=== PATIENT | female | born 1935 | race Caucasian/White ===

== ENCOUNTER 2018-10-11 16:03 | Inpatient (IN) | payer MEDICARE, BC ==
--- NOTE | 2018-10-11 16:52 | ED ---
Fall HPI - General Chief Complaint: Fall Stated Complaint: Fall Time Seen by Provider: 10/11/18 16:32 Source: patient, EMS Mode of arrival: EMS - Related Data Home Medications Medication Instructions Recorded Confirmed Escitalopram [Lexapro] 20 mg PO DAILY 09/24/15 10/11/18 Mycophenolate Mofetil [Cellcept] 500 mg PO BID 09/24/15 10/11/18 Verapamil HCl [Verapamil ER] 180 mg PO DAILY 05/28/16 10/11/18 Atorvastatin [Lipitor] 10 mg PO HS 10/11/18 10/11/18 Dorzolamide/Timolol/Pf 1 drop RIGHT EYE BID 10/11/18 10/11/18 [Dorzolamide-Timolol 2%-0.5%] Levothyroxine Sodium 100 mcg PO DAILY 10/11/18 10/11/18 Losartan [Cozaar] 25 mg PO DAILY 10/11/18 10/11/18 Simvastatin [Zocor] 40 mg PO HS 10/11/18 10/11/18 Allergies Allergy/AdvReac Type Severity Reaction Status Date / Time No Known Allergies Allergy Verified 10/11/18 16:32 Review of Systems ROS Statement: Those systems with pertinent positive or pertinent negative responses have been documented in the HPI. ROS Other: All systems not noted in ROS Statement are negative. 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 History of Any Multi-Drug Resistant Organisms: None Reported Past Surgical History: Hysterectomy, Orthopedic Surgery Additional Past Surgical History / Comment(s): left ankle, left hip surgery x 2017 Past Psychological History: No Psychological Hx Reported Smoking Status: Former smoker Past Alcohol Use History: Occasional, Rare Past Drug Use History: None Reported - Past Family History Mother Family Medical History: Myocardial Infarction ([place]) Additional Family Medical History / Comment(s): mother passed 5 at 52 from a [place] Father Family Medical History: CVA/TIA Additional Family Medical History / Comment(s): father from stroke General Exam Limitations: no limitations Course Vital Signs 10/11/18 10/11/18 16:11 17:04 Temperature 97.4 F L Pulse Rate 85 73 Respiratory 18 16 Rate Blood Pressure 174/85 174/82 O2 Sat by Pulse 96 96 Oximetry Medical Decision Making - Medical Decision Making 83 female the ER with fall. Does have hemogram is fracture, will admit for pain control and orthopedic evaluation - Radiology Data Radiology results: report reviewed (X-rays negative x-ray pelvis is positive for pubic ramus fracture), image reviewed Disposition Clinical Impression: Fall, Pelvic fracture, Pubic ramus fracture Disposition: ADMITTED IP TO THIS [facility] Condition: Fair Is patient prescribed a controlled substance at d/c from ED?: No Referrals: Aryan Tsang III, MD [Primary Care Provider] - 1-2 days
--- NOTE | 2018-10-11 17:31 | XR ---
EXAMINATION TYPE: XR Hip LT and AP Pelvis DATE OF EXAM: 10/11/2018 CLINICAL HISTORY: pain TECHNIQUE: AP and frogleg views of the left hip are obtained. Single view of the pelvis is also subm itted. COMPARISON: None. FINDINGS: Intramedullary jaylon and dynamic compression screw and proximal left femur. Heterotopic ossi fication. Nondisplaced fracture superior pubic ramus on the left. IMPRESSION: 1. Nondisplaced fracture superior pubic ramus on the left.
[2018-10-11] MEDS ORDERED: SODIUM CHLORIDE 0.9% 1,000 ML IV STA ×2 (18:06)
[2018-10-11] MEDS ORDERED: MORPHINE SULFATE 4 MG/ML SYRINGE IV PRN (18:06)
[2018-10-11] MEDS ORDERED: SODIUM CHLORIDE 0.9% 1,000 ML IV ONE (18:06)
[2018-10-11 18:50] LABS: Basophils % (A) 0 %; Eosinophils # (A) 0.2 k/uL (0-0.7); Eosinophils % (A) 3 %; HCT 43.3 % (34.0-46.0); HGB 13.5 gm/dL (11.4-16.0); Hypochromasia Slight; Lymphocytes # (A) 1.1 k/uL (1.0-4.8); Lymphocytes % (A) 12 %; MCH 28.3 pg (25.0-35.0); MCHC 31.1 g/dL (31.0-37.0); MCV 91.1 fL (80.0-100.0); Mean Platelet Volume 6.3; Monocytes # (A) 0.5 k/uL (0-1.0); Monocytes % (A) 6 %; Neutrophils % (A) 76 %; Platelet Count 408 k/uL (150-450); RBC 4.76 m/uL (3.80-5.40); RDW 14.6 % (11.5-15.5); WBC 9.2 k/uL (3.8-10.6)
--- NOTE | 2018-10-11 18:51 | XR ---
EXAMINATION TYPE: XR chest 1V portable DATE OF EXAM: 10/11/2018 HISTORY: Shortness of breath. COMPARISON: 06/01/16 TECHNIQUE: Single view of the chest is submitted. FINDINGS: Demonstrated are scattered senescent parenchymal change. There is no evidence for focal infiltrate. The heart is stable. Hilar and mediastinal structures are within normal limits. Degenerative changes are seen of the dorsal spine. IMPRESSION: 1. Chronic changes without evidence for acute pulmonary disease.
[2018-10-11 18:59] LABS: Albumin 4.5 g/dL (3.5-5.0); Calcium 10.1 mg/dL (8.4-10.2); Magnesium 1.7 mg/dL (1.6-2.3); Phosphorus 2.9 mg/dL (2.5-4.5); Potassium 4.5 mmol/L (3.5-5.1); Total Bilirubin 0.5 mg/dL (0.2-1.3); Total Protein 7.7 g/dL (6.3-8.2)
[2018-10-11 19:33] LABS: Partial Thromboplastin Time 23.4 sec (22.0-30.0); Prothrombin Time 10.3 sec (9.0-12.0)
[2018-10-11 20:37] LABS: Amorphous Sediment,Urine Few /hpf; Appearance,Urine Clear (Clear); Bacteria,Urine Rare /hpf; Bilirubin,Urine Negative (Negative); Blood,Urine Trace (Negative); Color,Urine Light Yellow; Glucose,Urine (UA) Negative (Negative); Ketones,Urine Negative (Negative); Leukocyte Esterase,Urine Negative (Negative); Nitrite,Urine Negative (Negative); PH, Urine 7.5 (5.0-8.0); Protein,Urine 2+ (Negative); RBC,Urine 5 /hpf (0-5); Specific Gravity,Urine 1.008 (1.001-1.035); Squamous Epithelial Cell,Urine 2 /hpf (0-4); Urobilinogen,Urine <2.0 mg/dL (<2.0); WBC,Urine 2 /hpf (0-5)
[2018-10-11] MEDS ORDERED: ALPRAZolam 0.25 MG TAB PO PRN (22:24)
[2018-10-11] MEDS: ATORVASTATIN 20 MG TAB PO SCH (22:39)
[2018-10-11] MEDS: ACETAMINOPHEN TAB 325 MG TAB PO PRN (22:39)
[2018-10-11] MEDS: LOSARTAN 25 MG TAB PO SCH (22:39)
[2018-10-12] MEDS: LEVOTHYROXINE 100 MCG TAB PO SCH (06:27)
[2018-10-12] MEDS: DORZOLAMIDE-TIMOLOL 2.23%/0.68 10ML BTL RIGHT EYE SCH ×2 (10:05→20:29)
[2018-10-12] MEDS: LOSARTAN 25 MG TAB PO SCH (10:06)
[2018-10-12] MEDS: MYCOPHENOLATE MOFETIL 250 MG CAP PO SCH ×2 (10:06→20:29)
[2018-10-12] MEDS: VERAPAMIL SR 180 MG TABLET.ER PO SCH (10:06)
[2018-10-12] MEDS: ENOXAPARIN 40 MG/0.4 ML SYRINGE SQ SCH (10:06)
--- NOTE | 2018-10-12 15:36 | P.CNOR ---
History of Present Illness - [facility] Consult date: 10/12/18 Consult reason: fracture History of present illness: Patient is an 83-year-old female who presented to [facility] yesterday afternoon after sustaining a fall in the grocery store parking lot. She states that the wind caught her door and the door knocked her over. She fell directly on the left side. There was a bystander there to help her get back up, she did have some significant pain involving the left lower extremity. EMS to bring the patient to the hospital. Upon arrival, imaging and lab tests were done. Images demonstrated a left-sided superior pubic rami fracture. Patient was admitted to internal medicine, our orthopedic team was consulted for orthopedic care. Patient was evaluated today at bedside, she is resting comfortably. She notes some deeper left groin pain when ambulating, other than that pain is well- controlled. She denies any other orthopedic complaints at this time. She denies hitting her head during the fall. Patient does have a history of a left hip fracture back in 2016, Dr. Welsh did do surgery at that time. Patient's done very well with that left lower extremity since then. Patient states that she does live at home alone. Patient still drives and ambulates with minimal difficulties. She states that she has multiple family members in the area of the check in on her. 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 History of Any Multi-Drug Resistant Organisms: None Reported Past Surgical History: Hysterectomy, Orthopedic Surgery Additional Past Surgical History / Comment(s): left ankle, left hip surgery x 2017 Past Anesthesia/Blood Transfusion Reactions: Postoperative Nausea & Vomiting (PONV) Past Psychological History: No Psychological Hx Reported Smoking Status: Former smoker Past Alcohol Use History: Occasional, Rare Past Drug Use History: None Reported - Past Family History Mother Family Medical History: Myocardial Infarction ([place]) Additional Family Medical History / Comment(s): mother passed 5 at 52 from a [place] Father Family Medical History: CVA/TIA Additional Family Medical History / Comment(s): father from stroke Medications and Allergies Home Medications Medication Instructions Recorded Confirmed Type Escitalopram [Lexapro] 20 mg PO DAILY 09/24/15 10/11/18 History Mycophenolate Mofetil [Cellcept] 500 mg PO BID 09/24/15 10/11/18 History Verapamil HCl [Verapamil ER] 180 mg PO DAILY 05/28/16 10/11/18 History Atorvastatin [Lipitor] 10 mg PO HS 10/11/18 10/11/18 History Dorzolamide/Timolol/Pf 1 drop RIGHT EYE BID 10/11/18 10/11/18 History [Dorzolamide-Timolol 2%-0.5%] Levothyroxine Sodium 100 mcg PO DAILY 10/11/18 10/11/18 History Losartan [Cozaar] 25 mg PO DAILY 10/11/18 10/11/18 History Simvastatin [Zocor] 40 mg PO HS 10/11/18 10/11/18 History Allergies Allergy/AdvReac Type Severity Reaction Status Date / Time No Known Allergies Allergy Verified 10/11/18 16:32 Physical Examination Left lower extremity: There are no obvious open lesions or sores present, no significant areas of erythema or soft tissue swelling There is about 2 cm shortening of the left leg when compared to the right, no significant external or internal rotation noted Logroll maneuver the hip reproduces slight discomfort in the groin She is able to straight leg raise, extension and flexion of the knee and intact No effusion surrounding the knee, no tenderness with palpation Calf is soft, no tenderness with palpation Plantar flexion, dorsiflexion, EHL, FHL are intact. Sensory exam to light touch throughout the extremities intact, dorsal pedis pulses 2+ Results - Labs Labs: Abnormal Lab Results - Last 24 Hours (Table) 10/11/18 10/11/18 Range/Units 18:39 20:00 BUN 18 H (7-17) mg/dL Urine Protein 2+ H (Negative) Urine Blood Trace H (Negative) Amorphous Sediment Few H (None) /hpf Urine Bacteria Rare H (None) /hpf Microbiology - Last 24 Hours (Table) 10/11/18 20:00 Urine Culture - Preliminary Urine,Clean Catch H & H 10/11/18 Range/Units 18:39 Hgb 13.5 (11.4-16.0) gm/dL Hct 43.3 (34.0-46.0) % Coagulation 10/11/18 Range/Units 18:39 INR 1.0 (<1.2) Result Diagrams: 10/11/18 18:39 10/11/18 18:39 - Diagnostic results Hip x-ray: report reviewed, image reviewed Assessment and Plan Plan: Imaging: AP pelvis along with left hip x-rays were reviewed. Images do demonstrate a nondisplaced left superior pubic rami fracture. Images also demonstrated a stable intramedullary nail involving the left femur. Assessment: 1. Nondisplaced left superior pubic rami fracture 2. History of intramedullary nail left femur fracture, stable hardware 3. Status post fall from standing Plan: I was able to discuss the case, including the physical exam findings and imaging studies with may attending Dr. Saenz. No orthopedic surgical intervention needed at this time. Recommend weight-bear as tolerated with walker PT evaluation Pain control With patient's current activity level since the fall and family help, patient should be able to be discharged home. Recommend staying in the hospital we can work with physical therapy, with hopeful plan discharge home on Sunday with home therapy Other expert medical writer and recommendations Time with Patient: Less than 30
[2018-10-12] MEDS: ACETAMINOPHEN TAB 325 MG TAB PO PRN ×2 (16:42→23:24)
[2018-10-12] MEDS: ATORVASTATIN 20 MG TAB PO SCH (20:28)
[2018-10-13] MEDS: LEVOTHYROXINE 100 MCG TAB PO SCH (06:02)
[2018-10-13] MEDS: VERAPAMIL SR 180 MG TABLET.ER PO SCH (09:26)
[2018-10-13] MEDS: ENOXAPARIN 40 MG/0.4 ML SYRINGE SQ SCH (09:26)
[2018-10-13] MEDS: MYCOPHENOLATE MOFETIL 250 MG CAP PO SCH ×2 (09:27→20:15)
[2018-10-13] MEDS: LOSARTAN 25 MG TAB PO SCH (09:27)
[2018-10-13] MEDS: DORZOLAMIDE-TIMOLOL 2.23%/0.68 10ML BTL RIGHT EYE SCH ×2 (09:27→20:14)
[2018-10-13] MEDS: ACETAMINOPHEN TAB 325 MG TAB PO PRN (09:39)
--- NOTE | 2018-10-13 11:45 | P.HPIM ---
History of Present Illness H&P Date: 10/12/18 Chief Complaint: Fall /left leg pain 83-year-old female who presented to [facility] yesterday afternoon after sustaining a fall in the grocery store parking lot. She states that the wind caught her door and the door knocked her over. She fell directly on the left side. There was a bystander there to help her get back up, she did have some significant pain involving the left lower extremity. EMS to bring the patient to the hospital. Upon arrival, imaging and lab tests were done. Images demonstrated a left-sided superior pubic rami fracture. Patient was admitted to internal medicine, our orthopedic team was consulted for orthopedic care. Patient was evaluated today at bedside, she is resting comfortably. She notes some deeper left groin pain when ambulating, other than that pain is well- controlled. She denies any other orthopedic complaints at this time. She denies hitting her head during the fall. Patient does have a history of a left hip fracture back in 2016, Dr. Welsh did do surgery at that time. Patient's done very well with that left lower extremity since then. Patient states that she does live at home alone. Patient still drives and ambulates with minimal difficulties. She states that she has multiple family members in the area of the check in on her. Review of Systems Constitutional: Denies chills, Denies fever Eyes: denies blurred vision, denies loss of vision Cardiovascular: Denies dyspnea on exertion, Denies syncope Respiratory: Denies cough with sputum Gastrointestinal: Denies abdominal pain, Denies nausea, Denies vomiting Genitourinary: Denies dysuria, Denies hematuria Musculoskeletal: Reports fractures, Reports frequent falls, Reports gait dysfunction Neurological: Denies confusion, Denies paresthesias, Denies visual changes Endocrine: Denies cold intolerance, Denies heat intolerance Past Medical History Past Medical History: GERD/Reflux, Hyperlipidemia, Hypertension, Renal Disease Additional Past Medical History / Comment(s): VASCULITIS, shingles 2014, 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 History of Any Multi-Drug Resistant Organisms: None Reported Past Surgical History: Hysterectomy, Orthopedic Surgery Additional Past Surgical History / Comment(s): left ankle, left hip surgery x 2017 Past Anesthesia/Blood Transfusion Reactions: Postoperative Nausea & Vomiting (PONV) Past Psychological History: No Psychological Hx Reported Smoking Status: Former smoker Past Alcohol Use History: Occasional, Rare Past Drug Use History: None Reported - Past Family History Mother Family Medical History: Myocardial Infarction ([place]) Additional Family Medical History / Comment(s): mother passed 5 at 52 from a [place] Father Family Medical History: CVA/TIA Additional Family Medical History / Comment(s): father from stroke Medications and Allergies Home Medications Medication Instructions Recorded Confirmed Type Escitalopram [Lexapro] 20 mg PO DAILY 09/24/15 10/11/18 History Mycophenolate Mofetil [Cellcept] 500 mg PO BID 09/24/15 10/11/18 History Verapamil HCl [Verapamil ER] 180 mg PO DAILY 05/28/16 10/11/18 History Atorvastatin [Lipitor] 10 mg PO HS 10/11/18 10/11/18 History Dorzolamide/Timolol/Pf 1 drop RIGHT EYE BID 10/11/18 10/11/18 History [Dorzolamide-Timolol 2%-0.5%] Levothyroxine Sodium 100 mcg PO DAILY 10/11/18 10/11/18 History Losartan [Cozaar] 25 mg PO DAILY 10/11/18 10/11/18 History Simvastatin [Zocor] 40 mg PO HS 10/11/18 10/11/18 History Allergies Allergy/AdvReac Type Severity Reaction Status Date / Time No Known Allergies Allergy Verified 10/11/18 16:32 Physical Exam Vitals: Vital Signs Temp Pulse Pulse Resp BP BP Pulse Ox 10/12/18 07:00 98.6 F 109 H 12 166/89 96 10/12/18 01:10 97.6 F 89 16 150/84 96 10/11/18 19:45 102 H 10/11/18 19:17 98.5 F 102 H 16 189/74 95 10/11/18 19:00 103 H 18 183/79 94 L 10/11/18 17:04 73 16 174/82 96 10/11/18 16:11 97.4 F L 85 18 174/85 96 Intake and Output 10/12/18 10/12/18 10/12/18 06:59 14:59 22:59 Other: Voiding Method Bedpan # Voids 1 1 PHYSICAL EXAMINATION: GENERAL: The patient is alert and oriented x3, not in any acute distress. Well developed, well nourished. HEENT: Pupils are round and equally reacting to light. EOMI. No scleral icterus. No conjunctival pallor. Normocephalic, atraumatic. No pharyngeal erythema. No thyromegaly. CARDIOVASCULAR: S1 and S2 present. No murmurs, rubs, or gallops. PULMONARY: Chest is clear to auscultation, no wheezing or crackles. ABDOMEN: Soft, nontender, nondistended, normoactive bowel sounds. No palpable organomegaly. MUSCULOSKELETAL: No joint swelling or deformity. EXTREMITIES: No cyanosis, clubbing, or pedal edema. Left lower extremity: There are no obvious open lesions or sores present, no significant areas of erythema or soft tissue swelling There is about 2 cm shortening of the left leg when compared to the right, no significant external or internal rotation noted Logroll maneuver the hip reproduces slight discomfort in the groin She is able to straight leg raise, extension and flexion of the knee and intact NEUROLOGICAL: Gross neurological examination did not reveal any focal deficits. SKIN: No rashes. Results CBC & Chem 7: 10/11/18 18:39 10/11/18 18:39 Labs: Abnormal Lab Results - Last 24 Hours (Table) 10/11/18 10/11/18 Range/Units 18:39 20:00 BUN 18 H (7-17) mg/dL Urine Protein 2+ H (Negative) Urine Blood Trace H (Negative) Amorphous Sediment Few H (None) /hpf Urine Bacteria Rare H (None) /hpf Microbiology - Last 24 Hours (Table) 10/11/18 20:00 Urine Culture - Preliminary Urine,Clean Catch Thrombosis Risk Factor Assmnt - Choose All That Apply Any of the Below Risk Factors Present?: Yes Each Factor Represents 1 point: Medical pt on bed rest Other Risk Factors: Yes Each Risk Factor Represents 3 Points: Age 75 years or older Each Risk Factor Represents 5 Points: Hip, pelvis, or leg fracture (< 1 month) Thrombosis Risk Factor Assessment Total Risk Factor Score: 9 Thrombosis Risk Factor Assessment Level: High Risk Assessment and Plan Assessment: 1. Nondisplaced left suprapubic ramus fracture - Patient has been seen and evaluated by orthopedic service; recommendations are weightbearing as tolerated with walker; PT evaluation and treatment for pos sible discharge home with home therapy on Sunday - Pain control 2. Status post fall from standing; PT to evaluate for further recommendations on discharge planning 3. History of intramedullary nail left femur fracture; stable hardware per orthopedic evaluation 4. Hypertension; stable on losartan 25 mg daily 5. Hyperlipidemia; continue with home dose of Lipitor 20 mg daily at bedtime 6. Hypothyroidism; levothyroxin 100 MCG daily 7. DVT prophylaxis; subcu Lovenox CODE STATUS; full code
--- NOTE | 2018-10-13 15:20 | P.PN ---
Subjective Progress Note Date: 10/13/18 83-year-old female who presented to [facility] yesterday afternoon after sustaining a fall in the grocery store parking lot. She states that the wind caught her door and the door knocked her over. She fell directly on the left side. There was a bystander there to help her get back up, she did have some significant pain involving the left lower extremity. EMS to bring the patient to the hospital. Upon arrival, imaging and lab tests were done. Images demonstrated a left-sided superior pubic rami fracture. Patient was admitted to internal medicine, our orthopedic team was consulted for orthopedic care. 10/13/2018 Patient is seen and evaluated sitting up in a chair; she claims she has been ambulating with a walker and presence of physical therapy Patient reports pain has been tolerable; she has been seen by orthopedic service and is recommended continuation of physical therapy and skilled rehab versus home health care; patient is more inclined towards home with home health care Case management/[employer] on board; patient to be discharged in next 24 hours. Objective - Vital Signs Vital signs: Vital Signs Temp 98 F 10/13/18 07:00 Pulse 98 10/13/18 08:16 Resp 12 10/13/18 08:16 BP 103/56 10/13/18 07:00 Pulse Ox 98 10/13/18 07:00 Intake & Output 10/12/18 10/13/18 10/13/18 18:59 06:59 18:59 Intake Total 400 400 Balance 400 400 Intake: Oral 400 400 Other: Voiding Method Bedpan Toilet Toilet # Voids 2 1 # Bowel Movements 1 - Exam - Constitutional General appearance: Present: average body habitus, cooperative, no acute distress - EENT Eyes: Present: anicteric sclerae, EOMI, PERRLA, normal appearance ENT: Present: hearing grossly normal, normal oropharynx Ears: bilateral: normal - Neck Neck: Present: normal ROM. Absent: lymphadenopathy, rigidity, thyromegaly Carotids: negative: bruit present Thyroid: bilateral: normal size, negative: enlarged, nodule - Respiratory Respiratory: bilateral: CTA, negative: rales, rhonchi, wheezing - Cardiovascular Rhythm: regular Heart sounds: normal: S1, S2 Abnormal Heart Sounds: Absent: systolic murmur, diastolic murmur - Gastrointestinal General gastrointestinal: Present: normal bowel sounds, soft. Absent: distended, organomegaly, tenderness - Genitourinary Genitourinary Comment(s): deferred - Integumentary Integumentary: Present: normal turgor. Absent: jaundiced, rash, ulcer - Neurologic Neurologic: Present: CNII-XII intact. Absent: focal deficits - Musculoskeletal Musculoskeletal: Present: gait normal, strength equal bilaterally - Psychiatric Psychiatric: Present: A&O x's 3, appropriate affect, intact judgment & insight - Labs CBC & Chem 7: 10/11/18 18:39 10/11/18 18:39 Labs: Microbiology - Last 24 Hours (Table) 10/11/18 20:00 Urine Culture - Preliminary Urine,Clean Catch Gram Neg Bacilli Assessment and Plan Assessment: 1. Nondisplaced left suprapubic ramus fracture - Patient has been seen and evaluated by orthopedic service; recommendations are weightbearing as tolerated with walker; PT evaluation and treatment for possible discharge home with home therapy on Sunday - Pain control 2. Status post fall from standing; PT to evaluate for further recommendations on discharge planning 3. History of intramedullary nail left femur fracture; stable hardware per orthopedic evaluation 4. Hypertension; stable on losartan 25 mg daily 5. Hyperlipidemia; continue with home dose of Lipitor 20 mg daily at bedtime 6. Hypothyroidism; levothyroxin 100 MCG daily 7. DVT prophylaxis; subcu Lovenox CODE STATUS; full code Time with Patient: Greater than 30
[2018-10-13] MEDS: ATORVASTATIN 20 MG TAB PO SCH (20:14)
[2018-10-13 20:18] VITALS: RESP 16
[2018-10-14] MEDS: LEVOTHYROXINE 100 MCG TAB PO SCH (05:32)
[2018-10-14 08:11] VITALS: BP 150/83; PULSE 99; TEMP 98.6
[2018-10-14] MEDS: MYCOPHENOLATE MOFETIL 250 MG CAP PO SCH (08:50)
[2018-10-14] MEDS: VERAPAMIL SR 180 MG TABLET.ER PO SCH (08:50)
[2018-10-14] MEDS: LOSARTAN 25 MG TAB PO SCH (08:50)
[2018-10-14] MEDS: ENOXAPARIN 40 MG/0.4 ML SYRINGE SQ SCH (08:50)
[2018-10-14] MEDS: DORZOLAMIDE-TIMOLOL 2.23%/0.68 10ML BTL RIGHT EYE SCH (08:56)
[2018-10-14] MEDS: ACETAMINOPHEN TAB 325 MG TAB PO PRN (09:17)
--- NOTE | 2018-10-14 19:46 | P.DS ---
Providers Date of admission: 10/11/18 18:06 Attending physician: Pepe Miranda Consults: 10/11/18 18:37 Consult Physician Routine Consulting Provider: Sandeep Welsh Consult Reason/Comments: known Do you want consulting provider notified?: Yes Primary care physician: Aryan Tsang Hospital Course: Diagnoses: Fall without syncope Nondisplaced left suprapubic ramus fracture E coli UTI History of left hip fracture Hypertension Hyperlipidemia Hypothyroidism Hospital course: This is a pleasant 83 years old female who presents with a fall at the grocery store, after that she has pain in her left side. Patient found to have nondisplaced left pubic ramus fracture. Patient has been evaluated by orthopedic team who recommended conservative treatment with ambulation using a walker. Patient is back close to her baseline, she could ambulate using a walker and she does not want to go to rehab when I ask her. She denies pain in her lower extremity. She has some polyuria but no dysuria or other complaint. Urine culture was positive for E. coli. Patient was treated with ceftriaxone and she can finish antibiotics with oral therapy to which bacteria sensitive to. Patient is back close to her baseline, she denies chest pain, no dyspnea. No change in urine or bowel habits. No abdominal pain or nausea or vomiting. No fever. Was cleared by orthopedic team for discharge Problems and management plan was discussed with the patient and she verbalized understanding and acceptance Patient was found stable and can be discharged home and can't prognosis however she needs follow-up as an outpatient. Patient was instructed to f/u with her pcp and orthopedic team in one week and she agrees. Gen: patient is a AAOx3, no distress CVS: S1-S2, RRR, no murmur Lungs: B/L CTA, no wheezing Abdomen: soft, no distention, no tenderness, positive bowel sounds Extremity: no leg edema or induration Time spent more than 35 minutes Patient Condition at Discharge: Fair Plan - Discharge Summary Discharge Rx Participant: Yes New Discharge Prescriptions: New Cephalexin [Keflex] 500 mg PO Q8HR #18 cap traMADol HCL [Ultram] 50 mg PO Q12HR PRN 3 Days #5 tab PRN Reason: Pain Continue Mycophenolate Mofetil [Cellcept] 500 mg PO BID Escitalopram [Lexapro] 20 mg PO DAILY Verapamil HCl [Verapamil ER] 180 mg PO DAILY Losartan [Cozaar] 25 mg PO DAILY Dorzolamide/Timolol/Pf [Dorzolamide-Timolol 2%-0.5%] 1 drop RIGHT EYE BID Atorvastatin [Lipitor] 10 mg PO HS Simvastatin [Zocor] 40 mg PO HS Levothyroxine Sodium 100 mcg PO DAILY Discharge Medication List Escitalopram [Lexapro] 20 mg PO DAILY 09/24/15 [History] Mycophenolate Mofetil [Cellcept] 500 mg PO BID 09/24/15 [History] Verapamil HCl [Verapamil ER] 180 mg PO DAILY 05/28/16 [History] Atorvastatin [Lipitor] 10 mg PO HS 10/11/18 [History] Dorzolamide/Timolol/Pf [Dorzolamide-Timolol 2%-0.5%] 1 drop RIGHT EYE BID 10/11/18 [History] Levothyroxine Sodium 100 mcg PO DAILY 10/11/18 [History] Losartan [Cozaar] 25 mg PO DAILY 10/11/18 [History] Simvastatin [Zocor] 40 mg PO HS 10/11/18 [History] Cephalexin [Keflex] 500 mg PO Q8HR #18 cap 10/14/18 [Rx] traMADol HCL [Ultram] 50 mg PO Q12HR PRN 3 Days #5 tab 10/14/18 [Rx] Follow up Appointment(s)/Referral(s): Aryan Tsang III, MD [Primary Care Provider] - 1-2 days Christiano Saenz DO [Doctor of Osteopathic Medicine] - 1 Week [facility], [NON-STAFF] - Wayne Henson PAC [PHYSICIAN TIRE TRIMMER HAND] - 1 Week (October 23, 2018 at 340 PM) Activity/Diet/Wound Care/Special Instructions: cardiac diet activity as tolerated Orthopedic Discharge Instructions: 1. Weightbear as tolerated with walker 2. Follow up at [facility] in 2 weeks Discharge Disposition: HOME WITH HOME HEALTH SERVICES
== END 2018-10-14 16:00 | disposition home health service (06) | DRG 536 ==
LOC: EC 16:03 → 4SSUR 18:06
PROVIDERS: ADMIT Hospitalist; ATTEND Hospitalist
DX: S32.592A Other specified fracture of left pubis, initial encounter for closed fracture (principal); N39.0 Urinary tract infection, site not specified; W19.XXXA Unspecified fall, initial encounter; Y92.512 Supermarket, store or market as the place of occurrence of the external cause; B96.20 Unspecified Escherichia coli [E. coli] as the cause of diseases classified elsewhere; E03.9 Hypothyroidism, unspecified; E78.5 Hyperlipidemia, unspecified; I10 Essential (primary) hypertension; K21.9 Gastro-esophageal reflux disease without esophagitis; Z79.890 Hormone replacement therapy; Z79.899 Other long term (current) drug therapy; Z82.3 Family history of stroke; Z82.49 Family history of ischemic heart disease and other diseases of the circulatory system; Z87.891 Personal history of nicotine dependence; Z90.710 Acquired absence of both cervix and uterus
CPT/HCPCS: 71045; 73502; 80053; 81001; 83735; 84100; 84484; 85025; 85610; 85730; 87077; 87086; 87186; 93005; 99285

== ENCOUNTER 2018-10-30 16:29 | Observation (INO) | payer MEDICARE, BC ==
--- NOTE | 2018-10-30 16:48 | ED ---
Fever HPI - General Chief Complaint: Fever Stated Complaint: Weakness Time Seen by Provider: 10/30/18 16:34 Source: EMS Mode of arrival: EMS Limitations: no limitations - History of Present Illness Initial Comments: This is an 83-year-old female with a history of H of fibrillation and recent admission to the hospital for a pubic ramus fracture which was treated conservatively who presents emergency department for fever and generalized malaise. The patient states that she's been living at home and has a home care nurse that comes to her house. She states that she had her temperature checked yesterday and it was 102. She was advised by the nurse at that time to come emergency department. The patient states that otherwise she's been feeling nor mal except for feeling some generalized malaise that she describes as "punky ". She denies any dysuria however does admit to some urinary frequency that she attributed to urinary incontinence. She does admit to a cough that is nonproductive that started today. She states that she spiked a fever this afternoon and took Tylenol around 2:30 so she presents emergency department. She denies any abdominal pain, nausea, vomiting, or diarrhea. She denies any upper respiratory symptoms. The patient did not get her annual flu shot this year. EMS noted H of fibrillation with a rate of 105 and route and the patient was given approximate 750 mL of normal saline by EMS. Otherwise the patient has no other acute complaints. - Related Data Home Medications Medication Instructions Recorded Confirmed Escitalopram [Lexapro] 20 mg PO DAILY 09/24/15 10/30/18 Mycophenolate Mofetil [Cellcept] 500 mg PO BID 09/24/15 10/30/18 Verapamil HCl [Verapamil ER] 180 mg PO DAILY 05/28/16 10/30/18 Atorvastatin [Lipitor] 10 mg PO HS 10/11/18 10/30/18 Dorzolamide/Timolol/Pf 1 drop RIGHT EYE BID 10/11/18 10/30/18 [Dorzolamide-Timolol 2%-0.5%] Levothyroxine Sodium 100 mcg PO DAILY 10/11/18 10/30/18 Losartan [Cozaar] 25 mg PO DAILY 10/11/18 10/30/18 ALPRAZolam [Xanax] 0.25 mg PO BID PRN 10/30/18 10/30/18 Acetaminophen [Tylenol Arthritis] 650 mg PO Q6H PRN 10/30/18 10/30/18 Albuterol Inhaler [Ventolin Hfa 2 puff INHALATION RT-Q4H PRN 10/30/18 10/30/18 Inhaler] Omeprazole 20 mg PO DAILY 10/30/18 10/30/18 Previous Rx's Medication Instructions Recorded traMADol HCL [Ultram] 50 mg PO Q12HR PRN 3 Days #5 tab 10/14/18 Allergies Allergy/AdvReac Type Severity Reaction Status Date / Time No Known Allergies Allergy Verified 10/30/18 17:01 Review of Systems ROS Statement: Those systems with pertinent positive or pertinent negative responses have been documented in the HPI. ROS Other: All systems not noted in ROS Statement are negative. 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 History of Any Multi-Drug Resistant Organisms: None Reported Past Surgical History: Hysterectomy, Orthopedic Surgery Additional Past Surgical History / Comment(s): left ankle, left hip surgery x 2017 Past Anesthesia/Blood Transfusion Reactions: Postoperative Nausea & Vomiting (PONV) Past Psychological History: No Psychological Hx Reported Smoking Status: Former smoker Past Alcohol Use History: Occasional Past Drug Use History: None Reported - Past Family History Mother Family Medical History: Myocardial Infarction (SC) Additional Family Medical History / Comment(s): mother passed 5 at 52 from a SC Father Family Medical History: CVA/TIA Additional Family Medical History / Comment(s): father from stroke General Exam - General Exam Comments Initial Comments: Constitutional: Awake alert Appears comfortable Head: Normocephalic atraumatic Eyes: no conjunctival injection No scleral icterus EOMI ENT: TMs clear bilaterally, no oral pharyngeal erythema or exudate Neck: No JVD Supple, no meningismus Heart: Irregularly irregular rhythm normal S1-S2 no murmurs Lungs: Clear to auscultation bilaterally No wheezing No rales, decreased breath sounds to bilateral bases Abdomen: Soft nondistended nontender Extremities: Non edematous DP pulses intact Radial pulses intact Neuro: A&Ox3 No focal neurologic deficits Psych: Appropriate mood and affect Limitations: no limitations Course Vital Signs 10/30/18 10/30/18 16:36 18:00 Temperature 98.8 F 98.5 F Pulse Rate 103 H 112 H Respiratory 18 18 Rate Blood Pressure 154/87 148/79 O2 Sat by Pulse 97 97 Oximetry - Reevaluation(s) Reevaluation #1: 10/30/18 17:40 EKG showing normal sinus rhythm with a rate of 99. There are no abnormal ST segment changes or T-wave inversions. QTC is 469. Other intervals appear normal. No ectopy. Medical Decision Making - Medical Decision Making Is any 3-year-old female who presents emergency department for fever and generalized malaise. The patient had a UA suggestive of a urinary tract infection. The patient did have a urine culture that showed E. coli during her last admission that was aceves susceptible. The patient was started on Rocephin. The patient was given her total sepsis bolus by EMS and here and patient's heart rate was noted to be slightly elevated in the low 100s however the patient did state that she did not take her verapamil earlier today. This was given to the patient in the emergency department. She was also found to have a leukocytosis of 13. The patient will be admitted for further monitoring and treatment. Dr. Miranda accepts the admission. - Lab Data Result diagrams: 10/30/18 16:45 10/30/18 16:45 Lab Results 10/30/18 10/30/18 10/30/18 Range/Units 16:45 16:45 16:45 WBC 13.2 H (3.8-10.6) k/uL RBC 4.09 (3.80-5.40) m/uL Hgb 11.6 (11.4-16.0) gm/dL Hct 37.7 (34.0-46.0) % MCV 92.2 (80.0-100.0) fL MCH 28.4 (25.0-35.0) pg MCHC 30.8 L (31.0-37.0) g/dL RDW 14.1 (11.5-15.5) % Plt Count 368 (150-450) k/uL Neutrophils % 84 % Lymphocytes % 9 % Monocytes % 5 % Eosinophils % 1 % Basophils % 0 % Neutrophils # 11.1 H (1.3-7.7) k/uL Lymphocytes # 1.2 (1.0-4.8) k/uL Monocytes # 0.7 (0-1.0) k/uL Eosinophils # 0.1 (0-0.7) k/uL Basophils # 0.0 (0-0.2) k/uL Hypochromasia Slight PT (9.0-12.0) sec INR (<1.2) APTT (22.0-30.0) sec Sodium 136 L (137-145) mmol/L Potassium 4.1 (3.5-5.1) mmol/L Chloride 104 (98-107) mmol/L Carbon Dioxide 23 (22-30) mmol/L Anion Gap 9 mmol/L BUN 17 (7-17) mg/dL Creatinine 0.86 (0.52-1.04) mg/dL Est GFR (CKD-EPI)AfAm 72 (>60 ml/min/1.73 sqM) Est GFR (CKD-EPI)NonAf 63 (>60 ml/min/1.73 sqM) Glucose 100 H (74-99) mg/dL Plasma Lactic Acid King 1.5 (0.7-2.0) mmol/L Calcium 9.2 (8.4-10.2) mg/dL Total Bilirubin 0.6 (0.2-1.3) mg/dL AST 18 (14-36) U/L ALT 20 (9-52) U/L Alkaline Phosphatase 107 (38-126) U/L Total Protein 6.6 (6.3-8.2) g/dL Albumin 3.8 (3.5-5.0) g/dL Urine Color Urine Appearance (Clear) Urine pH (5.0-8.0) Ur Specific Pray (1.001-1.035) Urine Protein (Negative) Urine Glucose (UA) (Negative) Urine Ketones (Negative) Urine Blood (Negative) Urine Nitrite (Negative) Urine Bilirubin (Negative) Urine Urobilinogen (<2.0) mg/dL Ur Leukocyte Esterase (Negative) Urine RBC (0-5) /hpf Urine WBC (0-5) /hpf Ur Squamous Epith Cells (0-4) /hpf Hyaline Casts (0-2) /lpf Urine Mucus (None) /hpf Influenza Type A RNA (Not Detectd) Influenza Type B (PCR) (Not Detectd) 10/30/18 10/30/18 10/30/18 Range/Units 16:45 16:45 17:00 WBC (3.8-10.6) k/uL RBC (3.80-5.40) m/uL Hgb (11.4-16.0) gm/dL Hct (34.0-46.0) % MCV (80.0-100.0) fL MCH (25.0-35.0) pg MCHC (31.0-37.0) g/dL RDW (11.5-15.5) % Plt Count (150-450) k/uL Neutrophils % % Lymphocytes % % Monocytes % % Eosinophils % % Basophils % % Neutrophils # (1.3-7.7) k/uL Lymphocytes # (1.0-4.8) k/uL Monocytes # (0-1.0) k/uL Eosinophils # (0-0.7) k/uL Basophils # (0-0.2) k/uL Hypochromasia PT 10.2 (9.0-12.0) sec INR 0.9 (<1.2) APTT 24.3 (22.0-30.0) sec Sodium (137-145) mmol/L Potassium (3.5-5.1) mmol/L Chloride (98-107) mmol/L Carbon Dioxide (22-30) mmol/L Anion Gap mmol/L BUN (7-17) mg/dL Creatinine (0.52-1.04) mg/dL Est GFR (CKD-EPI)AfAm (>60 ml/min/1.73 sqM) Est GFR (CKD-EPI)NonAf (>60 ml/min/1.73 sqM) Glucose (74-99) mg/dL Plasma Lactic Acid King (0.7-2.0) mmol/L Calcium (8.4-10.2) mg/dL Total Bilirubin (0.2-1.3) mg/dL AST (14-36) U/L ALT (9-52) U/L Alkaline Phosphatase (38-126) U/L Total Protein (6.3-8.2) g/dL Albumin (3.5-5.0) g/dL Urine Color Yellow Urine Appearance Clear (Clear) Urine pH 6.0 (5.0-8.0) Ur Specific Pray 1.021 (1.001-1.035) Urine Protein 3+ H (Negative) Urine Glucose (UA) Negative (Negative) Urine Ketones Negative (Negative) Urine Blood Small H (Negative) Urine Nitrite Negative (Negative) Urine Bilirubin Negative (Negative) Urine Urobilinogen <2.0 (<2.0) mg/dL Ur Leukocyte Esterase Negative (Negative) Urine RBC >182 H (0-5) /hpf Urine WBC 11 H (0-5) /hpf Ur Squamous Epith Cells 3 (0-4) /hpf Hyaline Casts 1 (0-2) /lpf Urine Mucus Rare H (None) /hpf Influenza Type A RNA Not Detected (Not Detectd) Influenza Type B (PCR) Not Detected (Not Detectd) Disposition Clinical Impression: Pneumonia, Sepsis Disposition: ADMITTED IP TO THIS HOSP Condition: Stable
[2018-10-30] MEDS: SODIUM CHLORIDE 0.9% 500 ML 500 ML IV SCH ×2 (16:57→17:30)
[2018-10-30] MEDS: SODIUM CHLORIDE 0.9% 1,000 ML IV SCH (16:57)
[2018-10-30 17:17] LABS: Basophils % (A) 0 %; Eosinophils # (A) 0.1 k/uL (0-0.7); Eosinophils % (A) 1 %; HCT 37.7 % (34.0-46.0); HGB 11.6 gm/dL (11.4-16.0); Hypochromasia Slight; Lymphocytes # (A) 1.2 k/uL (1.0-4.8); Lymphocytes % (A) 9 %; MCH 28.4 pg (25.0-35.0); MCHC 30.8 g/dL (31.0-37.0); MCV 92.2 fL (80.0-100.0); Mean Platelet Volume 6.4; Monocytes # (A) 0.7 k/uL (0-1.0); Monocytes % (A) 5 %; Neutrophils # (A) 11.1 k/uL (1.3-7.7); Neutrophils % (A) 84 %; Platelet Count 368 k/uL (150-450); RBC 4.09 m/uL (3.80-5.40); RDW 14.1 % (11.5-15.5); WBC 13.2 k/uL (3.8-10.6)
[2018-10-30 17:22] LABS: Appearance,Urine Clear (Clear); Bilirubin,Urine Negative (Negative); Blood,Urine Small (Negative); Color,Urine Yellow; Glucose,Urine (UA) Negative (Negative); Hyaline Casts,Urine 1 /lpf (0-2); INR 0.9 (<1.2); Ketones,Urine Negative (Negative); Leukocyte Esterase,Urine Negative (Negative); Mucus,Urine Rare /hpf; Nitrite,Urine Negative (Negative); Partial Thromboplastin Time 24.3 sec (22.0-30.0); Protein,Urine 3+ (Negative); Prothrombin Time 10.2 sec (9.0-12.0); RBC,Urine >182 /hpf (0-5); Specific Gravity,Urine 1.021 (1.001-1.035); Squamous Epithelial Cell,Urine 3 /hpf (0-4); Urobilinogen,Urine <2.0 mg/dL (<2.0); WBC,Urine 11 /hpf (0-5)
[2018-10-30 17:33] LABS: Albumin 3.8 g/dL (3.5-5.0); Calcium 9.2 mg/dL (8.4-10.2); Potassium 4.1 mmol/L (3.5-5.1); Total Bilirubin 0.6 mg/dL (0.2-1.3); Total Protein 6.6 g/dL (6.3-8.2)
--- NOTE | 2018-10-30 17:37 | XR ---
EXAMINATION TYPE: XR chest 2V DATE OF EXAM: 10/30/2018 COMPARISON: 10/11/2018 HISTORY: Weakness TECHNIQUE: Frontal and lateral views of the chest are obtained. FINDINGS: There is no heart failure nor confluent pneumonic infiltrate. There is some reticular dens ity in both upper lobes. Heart size is normal. Thoracic aorta is atheromatous. There are chest leads. IMPRESSION: Pulmonary fibrotic changes. This probably COPD. No significant change.
[2018-10-30] MEDS ORDERED: VERAPAMIL SR 180 MG TABLET.ER PO STA (18:13)
[2018-10-30] MEDS ORDERED: NALOXONE 0.4 MG/ML 1 ML VIAL IV PRN (18:37)
[2018-10-30] MEDS: ACETAMINOPHEN TAB 325 MG TAB PO PRN (19:56)
[2018-10-30] MEDS: METOPROLOL TARTRATE 50 MG TAB PO SCH (22:32)
[2018-10-31] MEDS ORDERED: ALBUTEROL NEBULIZED 2.5 MG/3 ML INHALATION PRN (01:05)
[2018-10-31] MEDS ORDERED: ACETAMINOPHEN TAB 325 MG TAB PO PRN (01:05)
[2018-10-31] MEDS ORDERED: traMADol 50 MG TAB PO PRN (01:05)
[2018-10-31] MEDS: LEVOTHYROXINE 100 MCG TAB PO SCH (05:40)
[2018-10-31] MEDS: ACETAMINOPHEN TAB 325 MG TAB PO PRN ×2 (05:40→15:03)
[2018-10-31] MEDS: SODIUM CHLORIDE 0.9% 1,000 ML IV SCH ×3 (05:43→21:30)
--- NOTE | 2018-10-31 07:03 | HP ---
HISTORY AND PHYSICAL DATE OF SERVICE: 10/31/2018 CHIEF COMPLAINT: Fever and weakness. HISTORY OF PRESENT ILLNESS: This 83-year-old woman with a past medical history of multiple medical problems including atrial fibrillation, GERD, hypertension, hyperlipidemia, history of renal disease, vasculitis, shingles, history of hysterectomy, being followed by Dr. Tsang in the outpatient setting is complaining of fever and weakness. The patient is living at home and came to the house and temperature was found to be 102. Patient also had pubic ramus fractures with increasing difficulties. The patient denies any dysuria, but because increase in the difficulties, patient came to [facility] and admitted for further evaluation and treatment. The UA showed mostly hematuria. Influenza was negative. The chest x-ray has been done, which was personally reviewed by me showed some fibrotic changes and COPD. The patient admitted for further evaluation and treatment. There is no history of any rigors or chills. No history of headache, loss of consciousness or seizures. PAST MEDICAL HISTORY: History of atrial fibrillation, history of GERD, hypertension, hyperlipidemia, history of renal disease, vasculitis, hysterectomy. MEDICATIONS: Medications prior to admission home medications are: 1. Ultram 50 mg p.o. b.i.d. 2. Verapamil p.o. daily. 3. Omeprazole 20 mg p.o. daily. 4. CellCept 500 mg p.o. b.i.d. 5. Cozaar 25 mg p.o. daily. 6. Levothyroxine 100 mcg p.o. daily. 7. Lexapro 20 mg p.o. daily. 8. Dorzolamide 1 drop b.i.d. 9. Lipitor 10 mg p.o. q.h.s. 10.Ventolin HFA 2 puffs q.4 p.r.n. 11.Tylenol Arthritis 650 mg q.6 p.r.n. 12.Xanax 0.25 b.i.d. p.r.n. ALLERGIES: Allergies are none. FAMILY HISTORY: History of myocardial infarction in the family. SOCIAL HISTORY: Previous history of smoking. No history of current smoking or alcohol intake. REVIEW OF SYSTEMS: ENT: No diminished hearing or diminished vision. CARDIOVASCULAR SYSTEM: No angina or palpitations. RESPIRATORY SYSTEM: As mentioned earlier. GI: No nausea. : No dysuria. NERVOUS SYSTEM: No numbness or weakness. ALLERGY/IMMUNOLOGY: No asthma. MUSCULOSKELETAL: As mentioned earlier. HEMATOLOGY/ONCOLOGY: No history of anemia. ENDOCRINE: No history of diabetes. Hypothyroidism present. CONSTITUTIONAL: As mentioned earlier. DERMATOLOGY: Negative. RHEUMATOLOGY: Negative. PSYCHIATRY: As mentioned earlier. PHYSICAL EXAMINATION: The patient is alert and oriented x3. Pulse is 125. Blood pressure 162/80, respirations 18, temperature 97 degrees, pulse ox 97% on room air. HEENT: Conjunctivae normal. CARDIOVASCULAR: S1, S2 muffled. RESPIRATION: Breath sounds diminished at the bases. A few scattered rhonchi and crackles. ABDOMEN: Soft, nontender. No mass palpable. LEGS: No edema. No swelling. NERVOUS SYSTEM: Higher functions as mentioned earlier. Moves all 4 limbs. LYMPHATICS: No lymphadenopathy of the neck, axillae or groin. SKIN: No ulcer, rash or bleeding. LABS: Labs at this time shows WBC 13.2, hemoglobin 11.6. Other labs are sodium 136. ASSESSMENT: 1. Fever, possibly urinary tract infection for evaluation. 2. Tachycardia, possibly supraventricular tachycardia. 3. Increased WBC. 4. Hyponatremia. 5. History of recent pubic ramus fracture. 6. History atrial fibrillation. 7. History of gastroesophageal reflux disease. 8. Hypertension. 9. Hyperlipidemia. 10.History of renal disease. 11.History of vasculitis. 12.History of hysterectomy. 13.History of degenerative joint disease. 14.Remote history of nicotine dependence. 15.FULL CODE. 16.Mild to moderate protein-calorie malnutrition. RECOMMENDATIONS AND DISCUSSION: This 83-year-old woman who presented with multiple complex medical issues, will monitor the patient closely. Continue the current medications and symptomatic treatment. Continue broad-spectrum IV antibiotics. Obtain cultures. Resume the home medications. Metoprolol has been added. Cardiology consultation. Otherwise, we will follow the patient closely. Guarded prognosis because of multiple complex medical issues. Further recommendations to follow. A copy of dictation forwarded to Dr. Tsang who is the primary physician. We will obtain cultures and continue to monitor. MMODL / IJN: [id number] / MTDD
[2018-10-31] MEDS: DORZOLAMIDE RIGHT EYE SCH ×2 (08:04→21:24)
[2018-10-31] MEDS: TIMOLOL RIGHT EYE SCH ×2 (08:04→21:24)
[2018-10-31] MEDS: ESCITALOPRAM 20 MG TAB PO SCH (08:05)
[2018-10-31] MEDS: MYCOPHENOLATE MOFETIL 250 MG CAP PO SCH ×2 (08:05→21:30)
[2018-10-31] MEDS: METOPROLOL TARTRATE 50 MG TAB PO SCH ×2 (08:05→21:29)
[2018-10-31] MEDS: PANTOPRAZOLE 40 MG TABLET PO SCH (08:05)
[2018-10-31] MEDS: VERAPAMIL SR 180 MG TABLET.ER PO SCH (08:06)
[2018-10-31] MEDS ORDERED: LOSARTAN 50 MG TAB PO SCH (09:00)
[2018-10-31 11:50] VITALS: BMI 19.7
--- NOTE | 2018-10-31 14:09 | P.PN ---
Subjective 83-year-old the female admitted for fever source is not clear patient is being treated for urinary tract infection will await for the blood cultures until tomorrow if they're negative patient will be discharged on empiric antibiotics for couple more days all the is not impressive for urinary tract infection patient does have hematuria urine nitrate and leukocyte esterase are negative patient doesn't have any symptoms of UTI. Minimal leukocytes in the urine no evidence of pneumonia on the chest x-ray. Patient clinically looks well in physical therapy and occupational therapy consultation. Patient does have atrial fibrillation with rapid ventricular rate because of her recent fall and some pubic Delong fracture patient is not on any anticoagulation patient went into A. fib presently rate controlled now with beta abby. Cardiology will evaluate and I'll let them decide about anticoagulation at this time. Patient blood pressure is low because of which losartan will be discontinued. Constitutional: Denied any fatigue denied any fever. Cardio vascular: denied any chest pain, palpitations Gastrointestinal denied any nausea vomiting Pulmonary: Denied any shortness of breath cough Neurologic denied any new focal deficits All inpatient medications were reviewed and appropriate changes in these medications as dictated in the interval history and assessment and plan. Objective - Vital Signs Vital signs: Vital Signs Temp 97.6 F 10/31/18 11:33 Pulse 95 10/31/18 11:33 Resp 16 10/31/18 11:33 BP 97/57 10/31/18 11:33 Pulse Ox 95 10/31/18 11:33 Intake & Output 10/30/18 10/31/18 10/31/18 18:59 06:59 18:59 Intake Total 400 Balance 400 Weight 45.813 kg 45.813 kg Intake: Intake, IV Titration 400 Amount Sodium Chloride 0.9% 1, 400 000 ml @ 100 mls/hr IV . Q10H COUNTS INCLUDE 234 BEDS AT THE [facility] Rx#:[id number] Other: Voiding Method Toilet Bedside Commode # Voids 1 - Exam PHYSICAL EXAMINATION: GENERAL: The patient is alert and oriented x3, not in any acute distress. Well developed, well nourished. HEENT: Pupils are round and equally reacting to light. EOMI. No scleral icterus. No conjunctival pallor. Normocephalic, atraumatic. No pharyngeal erythema. No thyromegaly. CARDIOVASCULAR: S1 and S2 present. No murmurs, rubs, or gallops. Irregularly irregular rhythm PULMONARY: Chest is clear to auscultation, no wheezing or crackles. ABDOMEN: Soft, nontender, nondistended, normoactive bowel sounds. No palpable organomegaly. MUSCULOSKELETAL: No joint swelling or deformity. EXTREMITIES: No cyanosis, clubbing, or pedal edema. NEUROLOGICAL: Gross neurological examination did not reveal any focal deficits. SKIN: No rashes. - Labs CBC & Chem 7: 10/30/18 16:45 10/30/18 16:45 Labs: Abnormal Lab Results - Last 24 Hours (Table) 10/30/18 10/30/18 10/30/18 Range/Units 16:45 16:45 16:45 WBC 13.2 H (3.8-10.6) k/uL MCHC 30.8 L (31.0-37.0) g/dL Neutrophils # 11.1 H (1.3-7.7) k/uL Sodium 136 L (137-145) mmol/L Glucose 100 H (74-99) mg/dL Urine Protein 3+ H (Negative) Urine Blood Small H (Negative) Urine RBC >182 H (0-5) /hpf Urine WBC 11 H (0-5) /hpf Urine Mucus Rare H (None) /hpf Microbiology - Last 24 Hours (Table) 10/30/18 16:45 Urine Culture - Preliminary Urine,Voided Assessment and Plan Plan: Fever and systemic inflammatory response syndrome without any clear-cut source of infection patient is presently being treated for UTI although I'm not completely impressed that patient has urinary tract infection will await the blood cultures of that intubation discharged tomorrow -Atrial fibrillation with rapid ventricular rate: Continue with beta abby and correlation as mentioned above -History of recent fever, fraction -Hyponatremia hypovolemic hyponatremia with IV fluids -Testis visual reflux disease -Hypertension -Hyperlipidemia -Mild protein calorie malnutrition
[2018-10-31] MEDS: ALPRAZolam 0.25 MG TAB PO PRN (15:03)
[2018-10-31] MEDS: ATORVASTATIN 10 MG TAB PO SCH (21:29)
[2018-11-01] MEDS: SODIUM CHLORIDE 0.9% 1,000 ML IV SCH ×2 (04:28→21:48)
[2018-11-01] MEDS: LEVOTHYROXINE 100 MCG TAB PO SCH (04:28)
[2018-11-01 08:50] LABS: Potassium 3.8 mmol/L (3.5-5.1)
[2018-11-01] MEDS: PANTOPRAZOLE 40 MG TABLET PO SCH (08:57)
[2018-11-01] MEDS: DORZOLAMIDE RIGHT EYE SCH ×2 (08:57→21:51)
[2018-11-01] MEDS: TIMOLOL RIGHT EYE SCH ×2 (08:57→21:51)
[2018-11-01] MEDS: METOPROLOL TARTRATE 50 MG TAB PO SCH ×2 (08:58→21:54)
[2018-11-01] MEDS: ESCITALOPRAM 20 MG TAB PO SCH (08:58)
[2018-11-01] MEDS: MYCOPHENOLATE MOFETIL 250 MG CAP PO SCH ×2 (08:58→21:54)
[2018-11-01] MEDS: VERAPAMIL SR 180 MG TABLET.ER PO SCH (09:00)
[2018-11-01 09:03] LABS: Basophils % (A) 0 %; Eosinophils # (A) 0.2 k/uL (0-0.7); Eosinophils % (A) 2 %; HCT 36.4 % (34.0-46.0); Hypochromasia Slight; Lymphocytes # (A) 1.1 k/uL (1.0-4.8); Lymphocytes % (A) 11 %; MCH 27.9 pg (25.0-35.0); MCHC 30.3 g/dL (31.0-37.0); MCV 92.1 fL (80.0-100.0); Mean Platelet Volume 7.5; Monocytes # (A) 0.6 k/uL (0-1.0); Monocytes % (A) 6 %; Neutrophils # (A) 8.1 k/uL (1.3-7.7); Neutrophils % (A) 79 %; Platelet Count 326 k/uL (150-450); RBC 3.95 m/uL (3.80-5.40); RDW 14.5 % (11.5-15.5); WBC 10.2 k/uL (3.8-10.6)
--- NOTE | 2018-11-01 09:49 | P.CRDCN ---
History of Present Illness History of present illness: This is a pleasant 83 female past medical history significant for hypertension, dyslipidemia, gastroesophageal reflux disease, chronic kidney disease and recent fall resulting in a pubic ramus fracture. She denies history of coronary artery disease or any arrhythmia in the past. 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 We have been asked to see her in [facility] secondary to tachycardia on admission. She presents to the hospital secondary to fever at home and generalized weakness. She was found to have a urinary tract infection and is currently receiving IV antibiotics. Initial EKG on admission reveals atrial fibrillation as well as another EKG showing sinus mechanism with atrial tachycardia. She states she was completely asymptomatic from a cardiac perspective at the time she denies ever feeling any symptoms of palpitations, shortness of breath or dizziness. EKG reveals sinus mechanism with PACs and a burst of atrial tachycardia heart rate of 99. Repeat EKG 2 hours later reveals atrial fibrillation with a heart rate of 127. Chest x-ray reveals pulmonary fibrotic changes and probable COPD with no acute infiltrate or pleural effusion. Laboratory data reviewed, WBC 13.2, hemoglobin 11.6, platelets 368, sodium 136, potassium 4.1, creatinine 0.86. Current cardiac medications include verapamil 180 mg daily, losartan 25 mg daily and atorvastatin 10 mg daily. Most recent echocardiogram obtained in 2017 reveals preserved left ventricular systolic function with ejection fraction 60-65% with trace to mild aortic regurgitation. At the time of my exam: CONSTITUTIONAL: Denies fever. Denies chills. EYES: Denies blurred vision. Denies vision changes. Denies eye pain. EARS, NOSE, MOUTH & THROAT: Denies headache. Denies sore throat. Denies ear pain. CARDIOVASCULAR: Denies chest pain. Denies shortness of breath. Denies orthopnea. Denies PND. Denies palpitations. RESPIRATORY: Denies cough. GASTROINTESTINAL: Denies abdominal pain. Denies diarrhea. Denies constipation. Denies nausea. Denies vomiting. MUSCULOSKELETAL: Denies myalgias. INTEGUMENTARY: Denies pruitis. Denies rash. NEUROLOGIC: Denies numbness. Denies tingling. Denies weakness. PSYCHIATRIC: Denies anxiety. Denies depression. ENDOCRINE: Denies fatigue. Denies weight change. Denies polydipsia. Denies polyurina. GENITOURINARY: Denies burning, hematuria or urgency with micturation. HEMATOLOGIC: Denies history of anemia. Denies bleeding. Blood pressure 97/57 heart rate 95 currently afebrile maintaining oxygen saturation on room air GENERAL: This is a 83-year-old female in no apparent distress at the time of my examination. HEENT: Head is atraumatic, normocephalic. Pupils are equal, round. Sclerae anicteric. Conjunctivae are clear. Mucous membranes of the mouth are moist. Neck is supple. There is no jugular venous distention. No carotid bruit is heard. LUNGS: Clear to auscultation no wheezes, rales or rhonchi. No chest wall tenderness is noted on palpation or with deep breathing. HEART: Regular rate and rhythm with faint systolic ejection murmur at the left sternal border, no rubs or gallops. S1 and S2 heard. ABDOMEN: Soft, nontender. Bowel sounds are heard. No organomegaly noted. EXTREMITIES: No evidence of peripheral edema and no calf tenderness noted. VASCULAR: Radial and dorsalis pedis pulses palpated, no evidence of clubbing. NEUROLOGIC: Patient is awake, alert and oriented x3. ASSESSMENT Urinary tract infection Paroxysmal atrial fibrillation, not on [employer] anti-coagulation. Currently maintaining sinus mechanism. New-onset. Leukocytosis Febrile illness Hypertension Dyslipidemia PLAN Obtain 2D echocardiogram and doppler study to assess cardiac structure and function. Initiate on [employer] anti-coagulation for thromboembolic protection. This has been explained to the patient in detail and she agrees with initiation. We will check the cost of eliqui 5 mg BID. Ongoing medical management of urinary tract infection. Thank you kindly for this consultation. Nurse Practitioner note has been reviewed, I agree with a documented findings and plan of care. Patient was seen and examined. 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 History of Any Multi-Drug Resistant Organisms: None Reported Past Surgical History: Hysterectomy, Orthopedic Surgery Additional Past Surgical History / Comment(s): left ankle, left hip surgery x 2017 Past Anesthesia/Blood Transfusion Reactions: Postoperative Nausea & Vomiting (PONV) Past Psychological History: No Psychological Hx Reported Smoking Status: Former smoker Past Alcohol Use History: Occasional Past Drug Use History: None Reported - Past Family History Mother Family Medical History: Myocardial Infarction (MD) Additional Family Medical History / Comment(s): mother passed 5 at 52 from a MD Father Family Medical History: CVA/TIA Additional Family Medical History / Comment(s): father from stroke Medications and Allergies Home Medications Medication Instructions Recorded Confirmed Type Escitalopram [Lexapro] 20 mg PO DAILY 09/24/15 10/30/18 History Mycophenolate Mofetil [Cellcept] 500 mg PO BID 09/24/15 10/30/18 History Verapamil HCl [Verapamil ER] 180 mg PO DAILY 05/28/16 10/30/18 History Atorvastatin [Lipitor] 10 mg PO HS 10/11/18 10/30/18 History Dorzolamide/Timolol/Pf 1 drop RIGHT EYE BID 10/11/18 10/30/18 History [Dorzolamide-Timolol 2%-0.5%] Levothyroxine Sodium 100 mcg PO DAILY 10/11/18 10/30/18 History Losartan [Cozaar] 25 mg PO DAILY 10/11/18 10/30/18 History traMADol HCL [Ultram] 50 mg PO Q12HR PRN 3 Days #5 tab 10/14/18 10/30/18 Rx ALPRAZolam [Xanax] 0.25 mg PO BID PRN 10/30/18 10/30/18 History Acetaminophen [Tylenol Arthritis] 650 mg PO Q6H PRN 10/30/18 10/30/18 History Albuterol Inhaler [Ventolin Hfa 2 puff INHALATION RT-Q4H PRN 10/30/18 10/30/18 History Inhaler] Omeprazole 20 mg PO DAILY 10/30/18 10/30/18 History Allergies Allergy/AdvReac Type Severity Reaction Status Date / Time No Known Allergies Allergy Verified 10/30/18 17:01 Physical Exam Vitals: Vital Signs Temp Pulse Pulse Pulse Resp BP BP 10/31/18 11:33 97.6 F 95 16 97/57 10/31/18 05:00 99.8 F H 74 16 150/69 10/30/18 23:11 63 18 10/30/18 23:00 63 10/30/18 21:54 125 H 18 162/80 10/30/18 20:41 97.0 F L 138 H 20 160/101 10/30/18 20:21 127 H 22 152/90 10/30/18 19:00 98.6 F 114 H 18 132/74 10/30/18 18:00 98.5 F 112 H 18 148/79 10/30/18 16:36 98.8 F 103 H 18 154/87 Pulse Ox 10/31/18 11:33 95 10/31/18 05:00 91 L 10/30/18 23:11 10/30/18 23:00 10/30/18 21:54 96 10/30/18 20:41 96 10/30/18 20:21 96 10/30/18 19:00 99 10/30/18 18:00 97 10/30/18 16:36 97 Intake and Output 10/30/18 10/31/18 10/31/18 22:59 06:59 14:59 Intake Total 400 Balance 400 Intake: Intake, IV Titration 400 Amount Sodium Chloride 0.9% 1, 400 000 ml @ 100 mls/hr IV . Q10H [facility] Rx#:[id number] Other: Voiding Method Toilet Bedside Commode # Voids 1 1 3 Weight 45.813 kg 45.813 kg Results 11/01/18 07:03 11/01/18 07:03 Cardiac Enzymes 10/30/18 Range/Units 16:45 AST 18 (14-36) U/L Coagulation 10/30/18 Range/Units 16:45 PT 10.2 (9.0-12.0) sec APTT 24.3 (22.0-30.0) sec CBC 10/30/18 Range/Units 16:45 WBC 13.2 H (3.8-10.6) k/uL RBC 4.09 (3.80-5.40) m/uL Hgb 11.6 (11.4-16.0) gm/dL Hct 37.7 (34.0-46.0) % Plt Count 368 (150-450) k/uL Comprehensive Metabolic Panel 10/30/18 Range/Units 16:45 Sodium 136 L (137-145) mmol/L Potassium 4.1 (3.5-5.1) mmol/L Chloride 104 (98-107) mmol/L Carbon Dioxide 23 (22-30) mmol/L BUN 17 (7-17) mg/dL Creatinine 0.86 (0.52-1.04) mg/dL Glucose 100 H (74-99) mg/dL Calcium 9.2 (8.4-10.2) mg/dL AST 18 (14-36) U/L ALT 20 (9-52) U/L Alkaline Phosphatase 107 (38-126) U/L Total Protein 6.6 (6.3-8.2) g/dL Albumin 3.8 (3.5-5.0) g/dL Current Medications Generic Name Dose Route Start Last Admin Trade Name Freq PRN Reason Stop Dose Admin Acetaminophen 650 mg 10/30/18 18:37 10/31/18 05:40 Tylenol Tab PO 650 mg Q6HR PRN Administration Mild Pain or Fever > 100.5 Acetaminophen 650 mg 10/31/18 01:05 Tylenol Tab PO Q6H PRN Pain Albuterol Sulfate 2.5 mg 10/31/18 01:05 Ventolin Nebulized INHALATION RT-Q4H PRN Shortness Of Breath Alprazolam 0.25 mg 10/31/18 01:05 Xanax PO BID PRN Anxiety Atorvastatin Calcium 10 mg 10/31/18 21:00 Lipitor PO HS [facility] Escitalopram Oxalate 20 mg 10/31/18 09:00 10/31/18 08:05 Lexapro PO 20 mg DAILY [facility] Administration Sodium Chloride 1,000 mls @ 100 mls/hr 10/30/18 16:45 10/31/18 05:43 Saline 0.9% IV 100 mls/hr .Q10H [facility] Administration Levothyroxine Sodium 100 mcg 10/31/18 06:30 10/31/18 05:40 Synthroid PO 100 mcg DAILY@0630 [facility] Administration Metoprolol Tartrate 50 mg 10/30/18 22:00 10/31/18 08:05 Lopressor PO 50 mg BID [facility] Administration Mycophenolate Mofetil 500 mg 10/31/18 09:00 10/31/18 08:05 Cellcept PO 500 mg BID [facility] Administration Naloxone HCl 0.2 mg 10/30/18 18:37 Narcan IV Q2M PRN Opioid Reversal Dorzolamide/Timolol/ 1 drop 10/31/18 09:00 10/31/18 08:04 Pf [Dorzolamide- RIGHT EYE Not Given Timolol 2%-0.5%] BID [facility] Pantoprazole Sodium 40 mg 10/31/18 07:30 10/31/18 08:05 Protonix PO 40 mg DAILY@0730 [facility] Administration Tramadol HCl 50 mg 10/31/18 01:05 Ultram PO Q12HR PRN Pain Verapamil HCl 180 mg 10/31/18 09:00 10/31/18 08:06 Isoptin Sr PO 180 mg DAILY [facility] Administration Intake and Output 10/30/18 10/31/18 10/31/18 22:59 06:59 14:59 Intake Total 400 Balance 400 Intake: Intake, IV Titration 400 Amount Sodium Chloride 0.9% 1, 400 000 ml @ 100 mls/hr IV . Q10H [facility] Rx#:[id number] Other: Voiding Method Toilet Bedside Commode # Voids 1 1 3 Weight 45.813 kg 45.813 kg Patient Weight 11/01/18 06:59 Weight 45.813 kg 10/30/18 16:45 10/30/18 16:45
[2018-11-01] MEDS ORDERED: APIXABAN 2.5 MG TABLET PO SCH (11:45)
--- NOTE | 2018-11-01 14:20 | P.PN ---
Subjective 83-year-old the female admitted for fever source is not clear patient is being treated for urinary tract infection will await for the blood cultures until tomorrow if they're negative patient will be discharged on empiric antibiotics for couple more days all the is not impressive for urinary tract infection patient does have hematuria urine nitrate and leukocyte esterase are negative patient doesn't have any symptoms of UTI. Minimal leukocytes in the urine no evidence of pneumonia on the chest x-ray. Patient clinically looks well in physical therapy and occupational therapy consultation. Patient does have atrial fibrillation with rapid ventricular rate because of her recent fall and some pubic [place] fracture patient is not on any anticoagulation patient went into A. fib presently rate controlled now with beta abby. Cardiology will evaluate and I'll let them decide about anticoagulation at this time. Patient blood pressure is low because of which losartan will be discontinued. 11/01/2018 Patient is clinically doing well and can be discharged all the cultures are negative there is no evidence of any infection but the cardiology is recommending one more day of monitoring and possibly discharge tomorrow and patient is not approved for Eliquis patient was started on Coumadin today and will be discharged tomorrow and patient will not need any bridging. Constitutional: Denied any fatigue denied any fever. Cardio vascular: denied any chest pain, palpitations Gastrointestinal denied any nausea vomiting Pulmonary: Denied any shortness of breath cough Neurologic denied any new focal deficits All inpatient medications were reviewed and appropriate changes in these medications as dictated in the interval history and assessment and plan. Objective - Vital Signs Vital signs: Vital Signs Temp 97.4 F L 11/01/18 11:58 Pulse 78 11/01/18 11:58 Resp 16 11/01/18 11:58 BP 155/77 11/01/18 11:58 Pulse Ox 97 11/01/18 11:58 Intake & Output 10/31/18 11/01/18 11/01/18 18:59 06:59 18:59 Intake Total 1919 Balance 1919 Weight 45.813 kg Intake: Intake, IV Titration 1200 Amount Sodium Chloride 0.9% 1, 1200 000 ml @ 100 mls/hr IV . Q10H [facility] Rx#:[id number] Oral 720 Other: Voiding Method Toilet Bedside Commode # Voids 3 2 - Exam PHYSICAL EXAMINATION: GENERAL: The patient is alert and oriented x3, not in any acute distress. Well developed, well nourished. HEENT: Pupils are round and equally reacting to light. EOMI. No scleral icterus. No conjunctival pallor. Normocephalic, atraumatic. No pharyngeal erythema. No th yromegaly. CARDIOVASCULAR: S1 and S2 present. No murmurs, rubs, or gallops. Irregularly irregular rhythm PULMONARY: Chest is clear to auscultation, no wheezing or crackles. ABDOMEN: Soft, nontender, nondistended, normoactive bowel sounds. No palpable organomegaly. MUSCULOSKELETAL: No joint swelling or deformity. EXTREMITIES: No cyanosis, clubbing, or pedal edema. NEUROLOGICAL: Gross neurological examination did not reveal any focal deficits. SKIN: No rashes. - Labs CBC & Chem 7: 11/01/18 07:03 11/01/18 07:03 Labs: Abnormal Lab Results - Last 24 Hours (Table) 11/01/18 11/01/18 Range/Units 07:03 07:03 Hgb 11.0 L (11.4-16.0) gm/dL MCHC 30.3 L (31.0-37.0) g/dL Neutrophils # 8.1 H (1.3-7.7) k/uL Chloride 109 H (98-107) mmol/L Microbiology - Last 24 Hours (Table) 10/30/18 16:45 Urine Culture - Final Urine,Voided 10/30/18 16:45 Blood Culture - Preliminary Blood No Growth after 24 hours Assessment and Plan Plan: Fever and systemic inflammatory response syndrome without any clear-cut source of infection patient is presently being treated for UTI although I'm not completely impressed that patient has urinary tract infection blood cultures are negative so far -Atrial fibrillation with rapid ventricular rate: Continue with beta abby and correlation as mentioned above, anti-correlation as mentioned above -History of recent hip fracture -Hyponatremia hypovolemic hyponatremia with IV fluids, improved -gastroesophageall reflux disease -Hypertension -Hyperlipidemia -Mild protein calorie malnutrition
[2018-11-01] MEDS: ACETAMINOPHEN TAB 325 MG TAB PO PRN (14:26)
[2018-11-01] MEDS: ALPRAZolam 0.25 MG TAB PO PRN (14:29)
[2018-11-01] MEDS ORDERED: WARFARIN 5 MG TAB PO SCH (18:00)
[2018-11-01] MEDS ORDERED: WARFARIN 2.5 MG TAB PO ONE (18:00)
[2018-11-01] MEDS: ATORVASTATIN 10 MG TAB PO SCH (21:54)
[2018-11-02] MEDS: ACETAMINOPHEN TAB 325 MG TAB PO PRN (00:33)
[2018-11-02] MEDS: SODIUM CHLORIDE 0.9% 1,000 ML IV SCH (03:41)
[2018-11-02 05:16] VITALS: RESP 18; TEMP 97.3
[2018-11-02] MEDS: LEVOTHYROXINE 100 MCG TAB PO SCH (06:03)
[2018-11-02] MEDS: PANTOPRAZOLE 40 MG TABLET PO SCH (07:49)
[2018-11-02] MEDS: METOPROLOL TARTRATE 50 MG TAB PO SCH (07:50)
[2018-11-02] MEDS: DORZOLAMIDE RIGHT EYE SCH (07:50)
[2018-11-02] MEDS: ESCITALOPRAM 20 MG TAB PO SCH (07:50)
[2018-11-02] MEDS: TIMOLOL RIGHT EYE SCH (07:50)
[2018-11-02] MEDS: MYCOPHENOLATE MOFETIL 250 MG CAP PO SCH (07:50)
[2018-11-02] MEDS: VERAPAMIL SR 180 MG TABLET.ER PO SCH (07:51)
[2018-11-02 08:00] LABS: INR 0.9 (<1.2); Prothrombin Time 9.7 sec (9.0-12.0)
[2018-11-02 12:40] VITALS: BP 160/77; PULSE 78
--- NOTE | 2018-11-02 12:59 | P.PN ---
Subjective Progress Note Date: 11/02/18 Principal diagnosis: Paroxysmal atrial fibrillation This is a pleasant 83-year-old female patient with history of hypertension and dyslipidemia who was admitted initially to the hospital with weakness and she was diagnosed with UTI. We get involved in her care for atrial fibrillation with RVR. Currently the patient has been maintaining normal sinus mechanism. On follow-up with her today, November 022018, during the night she was in and out atrial fibrillation but currently she is in normal sinus mechanism. The blood pressure continues to be elevated as well as a heart rate. I am going to increase dose of metoprolol to 50 mg by mouth 3 times a day. Continue oral anti coagulation with Coumadin. From the cardiac vascular standpoint overview, the patient can be discharged home. Objective - Vital Signs Vital signs: Vital Signs Temp 97.3 F L 11/02/18 12:39 Pulse 78 11/02/18 12:39 Resp 18 11/02/18 12:39 BP 160/77 11/02/18 12:39 Pulse Ox 95 11/02/18 12:39 Intake & Output 11/01/18 11/02/18 11/02/18 18:59 06:59 18:59 Intake Total 800 350 Balance 800 350 Intake: Intake, IV Titration 800 Amount Sodium Chloride 0.9% 1, 800 000 ml @ 100 mls/hr IV . Q10H [facility] Rx#:[id number] Oral 350 Other: Voiding Method Toilet Toilet Bedside Commode # Voids 3 # Bowel Movements 1 - Constitutional General appearance: Present: no acute distress - Respiratory Respiratory: bilateral: CTA - Cardiovascular Rhythm: regular Heart sounds: normal: S1, S2 - Labs CBC & Chem 7: 11/01/18 07:03 11/01/18 07:03 Labs: Microbiology - Last 24 Hours (Table) 10/30/18 16:45 Blood Culture - Preliminary Blood No Growth after 48 hours Assessment and Plan Assessment: Assessment #1 urinary tract infection #2 paroxysmal atrial fibrillation Plan #1 increase the dose of metoprolol #2 the patient can be discharged home
--- NOTE | 2018-11-02 14:46 | P.DS ---
Providers Date of admission: 10/30/18 18:37 Attending physician: Pepe Miranda Consults: 10/30/18 21:52 Consult Physician Routine Consulting Provider: Robert Negrete Consult Reason/Comments: Tachycardia Do you want consulting provider notified?: Yes, Notify in am Primary care physician: Aryan Mcneil [facility] Course: 83-year-old the female admitted for fever source is not clear patient is being treated for urinary tract infection will await for the blood cultures until tomorrow if they're negative patient will be discharged on empiric antibiotics for couple more days all the is not impressive for urinary tract infection patient does have hematuria urine nitrate and leukocyte esterase are negative patient doesn't have any symptoms of UTI. Minimal leukocytes in the urine no evidence of pneumonia on the chest x-ray. Patient clinically looks well in physical therapy and occupational therapy consultation. Patient does have atrial fibrillation with rapid ventricular rate because of her recent fall and some pubic [place] fracture patient is not on any anticoagulation patient went into A. fib presently rate controlled now with beta abby. Cardiology will evaluate and I'll let them decide about anticoagulation at this time. Patient blood pressure is low because of which losartan will be discontinued. 11/01/2018 Patient is clinically doing well and can be discharged all the cultures are negative there is no evidence of any infection but the cardiology is recommending one more day of monitoring and possibly discharge tomorrow and patient is not approved for Eliquis patient was started on Coumadin today and will be discharged tomorrow and patient will not need any bridging. 11/02/2018 Patient is clinically doing well and do not believe patient with current antibiotics all the cultures also were negative.patient received about 4 days of antibiotics here. She was started on Coumadin INR need to be checked in about 3 days. Cardiology evaluated the patient. PHYSICAL EXAMINATION: GENERAL: The patient is alert and oriented x3, not in any acute distress. thin built female HEENT: Pupils are round and equally reacting to light. EOMI. No scleral icterus. No conjunctival pallor. Normocephalic, atraumatic. No pharyngeal erythema. No thyromegaly. CARDIOVASCULAR: S1 and S2 present. No murmurs, rubs, or gallops. PULMONARY: Chest is clear to auscultation, no wheezing or crackles. ABDOMEN: Soft, nontender, nondistended, normoactive bowel sounds. No palpable organomegaly. MUSCULOSKELETAL: No joint swelling or deformity. EXTREMITIES: No cyanosis, clubbing, or pedal edema. NEUROLOGICAL: Gross neurological examination did not reveal any focal deficits. SKIN: No rashes. Assessment and Plan Plan: Fever and systemic inflammatory response syndrome without any clear-cut source of infection patient is presently being treated for UTI although I'm not completely impressed that patient has urinary tract infection blood cultures are negative so fardear patient will not be discharged on any antibiotics upon discharge -Atrial fibrillation with rapid ventricular rate: Continue with beta abby and cardiology is according anti-correlation patient is being discharged on Coumadin with INR check in about 3 days -History of recent hip fracture -Hyponatremia hypovolemic hyponatremia , improved with IV fluids -gastroesophageall reflux disease -Hypertension -Hyperlipidemia -Mild protein calorie malnutrition Patient Condition at Discharge: Stable Plan - Discharge Summary Discharge Rx Participant: No New Discharge Prescriptions: New Metoprolol Tartrate [Lopressor] 50 mg PO BID #60 tab Warfarin [Coumadin] 3 mg PO DAILY #30 tab Losartan [Cozaar] 25 mg PO DAILY #30 tab Continue Mycophenolate Mofetil [Cellcept] 500 mg PO BID Escitalopram [Lexapro] 20 mg PO DAILY Verapamil HCl [Verapamil ER] 180 mg PO DAILY Dorzolamide/Timolol/Pf [Dorzolamide-Timolol 2%-0.5%] 1 drop RIGHT EYE BID Atorvastatin [Lipitor] 10 mg PO HS Levothyroxine Sodium 100 mcg PO DAILY traMADol HCL [Ultram] 50 mg PO Q12HR PRN 3 Days #5 tab PRN Reason: Pain Acetaminophen [Tylenol Arthritis] 650 mg PO Q6H PRN PRN Reason: Pain Albuterol Inhaler [Ventolin Hfa Inhaler] 2 puff INHALATION RT-Q4H PRN PRN Reason: Shortness Of Breath ALPRAZolam [Xanax] 0.25 mg PO BID PRN PRN Reason: Anxiety Omeprazole 20 mg PO DAILY Discontinued Losartan [Cozaar] 25 mg PO DAILY Discharge Medication List Escitalopram [Lexapro] 20 mg PO DAILY 09/24/15 [History] Mycophenolate Mofetil [Cellcept] 500 mg PO BID 09/24/15 [History] Verapamil HCl [Verapamil ER] 180 mg PO DAILY 05/28/16 [History] Atorvastatin [Lipitor] 10 mg PO HS 10/11/18 [History] Dorzolamide/Timolol/Pf [Dorzolamide-Timolol 2%-0.5%] 1 drop RIGHT EYE BID 10/11/18 [History] Levothyroxine Sodium 100 mcg PO DAILY 10/11/18 [History] traMADol HCL [Ultram] 50 mg PO Q12HR PRN 3 Days #5 tab 10/14/18 [Rx] ALPRAZolam [Xanax] 0.25 mg PO BID PRN 10/30/18 [History] Acetaminophen [Tylenol Arthritis] 650 mg PO Q6H PRN 10/30/18 [History] Albuterol Inhaler [Ventolin Hfa Inhaler] 2 puff INHALATION RT-Q4H PRN 10/30/18 [History] Omeprazole 20 mg PO DAILY 10/30/18 [History] Metoprolol Tartrate [Lopressor] 50 mg PO BID #60 tab 11/01/18 [Rx] Losartan [Cozaar] 25 mg PO DAILY #30 tab 11/02/18 [Rx] Warfarin [Coumadin] 3 mg PO DAILY #30 tab 11/02/18 [Rx] Follow up Appointment(s)/Referral(s): Blas Tafoya MD [STAFF PHYSICIAN] - 2 Weeks [facility], [NON-STAFF] - 1 Week Ambulatory/Diagnostic Orders: Prothrombin Time INR [LAB.AMB] Location: None Selected Prothrombin Time INR [LAB.AMB] Time Frame: 3 Days, Location: None Selected Patient Instructions/Handouts: Warfarin (By mouth), A-fib (Atrial Fibrillation) (DC), Vitamin K in Foods (DC) Discharge Disposition: HOME WITH HOME HEALTH SERVICES
[2018-11-02] MEDS ORDERED: METOPROLOL TARTRATE 50 MG TAB PO SCH (16:00)
[2018-11-02] MEDS ORDERED: WARFARIN 2.5 MG TAB PO ONE (18:00)
--- NOTE | 2018-11-03 07:42 | ECHOF ---
Referral Reason:a-fib MEASUREMENTS -------- HEIGHT: 152.4 cm WEIGHT: 45.8 kg BP: 158/85 RVIDd: 2.6 cm (< 3.3) IVSd: 1.3 cm (0.6 - 1.1) LVIDd: 3.6 cm (3.9 - 5.3) LVPWd: 1.2 cm (0.6 - 1.1) IVSs: 1.6 cm LVIDs: 2.8 cm LVPWs: 1.3 cm LA Diam: 5.0 cm (2.7 - 3.8) LAESV Index (A-L): 36.98 ml/m Ao Diam: 2.8 cm (2.0 - 3.7) AV Cusp: 1.1 cm (1.5 - 2.6) LA Diam: 3.3 cm (2.7 - 3.8) MV E José Antonio: 0.58 m/s MV DecT: 150 ms MV A José Antonio: 0.69 m/s MV E/A Ratio: 0.84 AR PHT: 746 ms RAP: 5.00 mmHg RVSP: 39.63 mmHg FINDINGS -------- Sinus rhythm. This was a technically adequate study. The left ventricular size is normal. There is mild concentric left ventricular hypertrophy. Overa ll left ventricular systolic function is normal with, an EF between 55 - 60 %. The right ventricle is normal in size. The left atrium is moderately dilated. LA is moderately dilated 34-39 ml/m2 The right atrium is normal in size. Interatrial and interventricular septum intact. There is mild aortic regurgitation. Mild mitral annular calcification present. [id number] mitral regurgitation is present. Mild tricuspid regurgitation present. There is borderline pulmonary hypertension. Trace/mild (physiologic) pulmonic regurgitation. The aortic root size is normal. Normal inferior vena cava with normal inspiratory collapse consistent with estimated right atrial pre ssure of 5 mmHg. There is a small, generalized pericardial effusion present. Large Pleural Effusion. CONCLUSIONS -------- 1. Sinus rhythm. 2. This was a technically adequate study. 3. The left ventricular size is normal. 4. There is mild concentric left ventricular hypertrophy. 5. Overall left ventricular systolic function is normal with, an EF between 55 - 60 %. 6. The right ventricle is normal in size. 7. The left atrium is moderately dilated. 8. LA is moderately dilated 34-39 ml/m2 9. The right atrium is normal in size. 10. Interatrial and interventricular septum intact. 11. There is mild aortic regurgitation. 12. Mild mitral annular calcification present. 13. Cewm-ad-nkzjbkco mitral regurgitation is present. 14. Mild tricuspid regurgitation present. 15. There is borderline pulmonary hypertension. 16. Trace/mild (physiologic) pulmonic regurgitation. 17. The aortic root size is normal. 18. Normal inferior vena cava with normal inspiratory collapse consistent with estimated right atrial pressure of 5 mmHg. 19. There is a small, generalized pericardial effusion present. 20. Large Pleural Effusion. [employer]: Malu Natarajan RDCS
== END 2018-11-02 15:10 | disposition home health service (06) ==
LOC: EC 16:29 → 3NMEDONC 18:37
PROVIDERS: ADMIT Hospitalist; ATTEND Hospitalist
DX: A41.9 Sepsis, unspecified organism (principal); J18.9 Pneumonia, unspecified organism; K21.9 Gastro-esophageal reflux disease without esophagitis; E78.5 Hyperlipidemia, unspecified; E86.1 Hypovolemia; I77.6 Arteritis, unspecified; I10 Essential (primary) hypertension; Z68.1 Body mass index [BMI] 19.9 or less, adult; E87.1 Hypo-osmolality and hyponatremia; I48.91 Unspecified atrial fibrillation; E44.0 Moderate protein-calorie malnutrition; I48.0 Paroxysmal atrial fibrillation; J44.0 Chronic obstructive pulmonary disease with (acute) lower respiratory infection; I12.9 Hypertensive chronic kidney disease with stage 1 through stage 4 chronic kidney disease, or unspecified chronic kidney disease; N18.9 Chronic kidney disease, unspecified; R32 Unspecified urinary incontinence; I47.1 Supraventricular tachycardia; Z90.710 Acquired absence of both cervix and uterus; Z79.01 Long term (current) use of anticoagulants; Z79.890 Hormone replacement therapy; Z79.899 Other long term (current) drug therapy; Z87.891 Personal history of nicotine dependence; Z82.3 Family history of stroke; Z82.49 Family history of ischemic heart disease and other diseases of the circulatory system
CPT/HCPCS: 96361; 96365; 99285; 36415; 94760; 93005; 93306; 97116; 97162; 97166; 80053; 80048; 84443; 83605; 85025 ×2; 85610 ×2; 85730; 81001; 87040; 87086; 87502; 71046; G0378 ×4; J7517 ×3; J0696

== ENCOUNTER 2020-11-05 19:57 | Inpatient (IN) | payer MEDICARE, BC ==
[2020-11-05] MEDS ORDERED: SODIUM CHLORIDE 0.9% 500 ML 500 ML IV STA (20:22)
--- NOTE | 2020-11-05 20:34 | ED ---
General Adult HPI - General Chief complaint: Fall Stated complaint: Fall Time Seen by Provider: 11/05/20 20:07 Source: patient Mode of arrival: EMS Limitations: physical limitation - History of Present Illness Initial comments: Dictation was produced using [employer] dictation software. please excuse any grammatical, word or spelling errors. This patient was cared for during a federal and state declared state of emergency secondary to Covid 19 Chief Complaint: 85-year-old female presents after fall History of Present Illness: 85-year-old female she presents after fall. She had 2 alcoholic beverages. She fell landed on her back hit her head. She does complain of some right hip pain. Has any numbness and paresthesias to the right lower extremity. Besides right hip pain she has no other pain complaints. She is brought in by EMS placed in a c-collar. Patient has history of A. fib. The ROS documented in this emergency department record has been reviewed and confirmed by me. Those systems with pertinent positive or negative responses have been documented in the HPI. All other systems are other negative and/or noncontributory. PHYSICAL EXAM: General Impression: Alert and oriented x3, not in acute distress HEENT: Hematoma over the right parietal scalp, extra-ocular movements intact, pupils equal and reactive to light bilaterally, mucous membranes moist. Cardiovascular: Heart regular rate and rhythm Chest: Able to complete full sentences, no retractions, no tachypnea Abdomen: abdomen soft, non-tender, non-distended, no organomegaly Musculoskeletal: Pulses present and equal in all extremities, no peripheral ed jose, shortened externally rotated right lower extremity, tenderness or patient of right hip Motor: no focal deficits noted Neurological: CN II-XII grossly intact, no focal motor or sensory deficits noted Skin: Intact with no visualized rashes Psych: Normal affect and mood ED course: 85-year-old female who fell after drinking multiple a colic beverages. All signs upon arrival are within acceptable limits EKG interpretation: Ventricular rate 93, sinus rhythm with first-degree AV block, MA interval to 16, QRS 84, QTc 442. No MA prolongation, no QTC prolongation, no ST or T-wave changes noted. . Overall, this EKG is unremarkable Chest x-ray obtained showing no acute processes. Pelvis x-ray shows right intertrochanteric fracture. Computed tomography scan of the head and C-spine shows no acute injury. Laboratory evaluation obtained. CBC, coag panel, metabolic panel is within acceptable limits. Serum alcohol is 110. Case is discussed with Dr. Estrella and was concrete saw operator for patient's main orthopedic surgeon Dr. Saenz. Dr. Estrella is willing to accept patients care. Medicine consulted. - Related Data Home Medications Medication Instructions Recorded Confirmed Escitalopram [Lexapro] 20 mg PO DAILY 09/24/15 11/05/20 mycophenolate mofetiL [Cellcept] 750 mg PO BID 09/24/15 11/05/20 Verapamil HCl [Verapamil ER] 180 mg PO DAILY 05/28/16 11/05/20 Dorzolamide/Timolol/Pf 1 drop BOTH EYES BID 10/11/18 11/05/20 [Dorzolamide-Timolol 2%-0.5%] Levothyroxine Sodium 100 mcg PO HS 10/11/18 11/05/20 ALPRAZolam [Xanax] 0.25 mg PO BID PRN 10/30/18 11/05/20 Apixaban [Eliquis] 2.5 mg PO BID 11/05/20 11/05/20 Atorvastatin [Lipitor] 20 mg PO HS 11/05/20 11/05/20 Brimonidine Unknown Dose 1 drop BOTH EYES BID 11/05/20 11/05/20 Latanoprost [Xalatan 0.005%] 1 drop BOTH EYES HS 11/05/20 11/05/20 Metoprolol Tartrate [Lopressor] 25 mg PO BID 11/05/20 11/05/20 Allergies Allergy/AdvReac Type Severity Reaction Status Date / Time No Known Allergies Allergy Verified 11/05/20 20:43 Review of Systems ROS Statement: Those systems with pertinent positive or pertinent negative responses have been documented in the HPI. ROS Other: All systems not noted in ROS Statement are negative. 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 History of Any Multi-Drug Resistant Organisms: None Reported Past Surgical History: Hysterectomy, Orthopedic Surgery Additional Past Surgical History / Comment(s): left ankle, left hip surgery x 2017 Past Anesthesia/Blood Transfusion Reactions: Postoperative Nausea & Vomiting (PONV) Past Psychological History: No Psychological Hx Reported Past Alcohol Use History: Occasional Past Drug Use History: None Reported - Past Family History Mother Family Medical History: Myocardial Infarction ([place]) Additional Family Medical History / Comment(s): mother passed 5 at 52 from a [place] Father Family Medical History: CVA/TIA Additional Family Medical History / Comment(s): father from stroke General Exam Limitations: physical limitation Course Vital Signs 11/05/20 19:59 Temperature 97.6 F Pulse Rate 92 Respiratory 20 Rate Blood Pressure 124/97 O2 Sat by Pulse 100 Oximetry Medical Decision Making - Lab Data Result diagrams: 11/05/20 20:35 11/05/20 20:35 Lab Results 11/05/20 11/05/20 11/05/20 Range/Units 20:35 20:35 20:35 WBC 6.0 (3.8-10.6) k/uL RBC 3.97 (3.80-5.40) m/uL Hgb 10.6 L (11.4-16.0) gm/dL Hct 34.6 (34.0-46.0) % MCV 87.2 (80.0-100.0) fL MCH 26.7 (25.0-35.0) pg MCHC 30.6 L (31.0-37.0) g/dL RDW 14.5 (11.5-15.5) % Plt Count 382 (150-450) k/uL MPV 6.8 Neutrophils % 63 % Lymphocytes % 25 % Monocytes % 6 % Eosinophils % 3 % Basophils % 1 % Neutrophils # 3.8 (1.3-7.7) k/uL Lymphocytes # 1.5 (1.0-4.8) k/uL Monocytes # 0.4 (0-1.0) k/uL Eosinophils # 0.2 (0-0.7) k/uL Basophils # 0.0 (0-0.2) k/uL Hypochromasia Slight PT 10.3 (9.0-12.0) sec INR 1.0 (<1.2) APTT 24.0 (22.0-30.0) sec Sodium 137 (137-145) mmol/L Potassium 4.4 (3.5-5.1) mmol/L Chloride 105 (98-107) mmol/L Carbon Dioxide 18 L (22-30) mmol/L Anion Gap 14 mmol/L BUN 25 H (7-17) mg/dL Creatinine 1.39 H (0.52-1.04) mg/dL Est GFR (CKD-EPI)AfAm 40 (>60 ml/min/1.73 sqM) Est GFR (CKD-EPI)NonAf 34 (>60 ml/min/1.73 sqM) Glucose 91 (74-99) mg/dL Calcium 9.2 (8.4-10.2) mg/dL Total Bilirubin 0.2 (0.2-1.3) mg/dL AST 24 (14-36) U/L ALT 8 (4-34) U/L Alkaline Phosphatase 71 (38-126) U/L Troponin I (0.000-0.034) ng/mL Total Protein 6.5 (6.3-8.2) g/dL Albumin 3.8 (3.5-5.0) g/dL Serum Alcohol 110 mg/dL Blood Type Blood Type Recheck Bld Type Recheck Status Spec Expiration Date 11/05/20 11/05/20 Range/Units 20:35 20:35 WBC (3.8-10.6) k/uL RBC (3.80-5.40) m/uL Hgb (11.4-16.0) gm/dL Hct (34.0-46.0) % MCV (80.0-100.0) fL MCH (25.0-35.0) pg MCHC (31.0-37.0) g/dL RDW (11.5-15.5) % Plt Count (150-450) k/uL MPV Neutrophils % % Lymphocytes % % Monocytes % % Eosinophils % % Basophils % % Neutrophils # (1.3-7.7) k/uL Lymphocytes # (1.0-4.8) k/uL Monocytes # (0-1.0) k/uL Eosinophils # (0-0.7) k/uL Basophils # (0-0.2) k/uL Hypochromasia PT (9.0-12.0) sec INR (<1.2) APTT (22.0-30.0) sec Sodium (137-145) mmol/L Potassium (3.5-5.1) mmol/L Chloride (98-107) mmol/L Carbon Dioxide (22-30) mmol/L Anion Gap mmol/L BUN (7-17) mg/dL Creatinine (0.52-1.04) mg/dL Est GFR (CKD-EPI)AfAm (>60 ml/min/1.73 sqM) Est GFR (CKD-EPI)NonAf (>60 ml/min/1.73 sqM) Glucose (74-99) mg/dL Calcium (8.4-10.2) mg/dL Total Bilirubin (0.2-1.3) mg/dL AST (14-36) U/L ALT (4-34) U/L Alkaline Phosphatase (38-126) U/L Troponin I <0.012 (0.000-0.034) ng/mL Total Protein (6.3-8.2) g/dL Albumin (3.5-5.0) g/dL Serum Alcohol mg/dL Blood Type O Positive Blood Type Recheck No Previous Record Bld Type Recheck Status CABO Indicated Spec Expiration Date 11/08/2020 - 1 Critical Care Time Critical Care Time: Yes Total Critical Care Time: 33 Disposition Clinical Impression: Fall, Hip fracture Disposition: ADMITTED IP TO THIS [facility] Condition: Fair Referrals: Aryan Tsang III, MD [Primary Care Provider] - 1-2 days
[2020-11-05 20:58] LABS: Albumin 3.8 g/dL (3.5-5.0); Basophils % (A) 1 %; Calcium 9.2 mg/dL (8.4-10.2); Eosinophils # (A) 0.2 k/uL (0-0.7); Eosinophils % (A) 3 %; HCT 34.6 % (34.0-46.0); HGB 10.6 gm/dL (11.4-16.0); Hypochromasia Slight; Lymphocytes # (A) 1.5 k/uL (1.0-4.8); Lymphocytes % (A) 25 %; MCH 26.7 pg (25.0-35.0); MCHC 30.6 g/dL (31.0-37.0); MCV 87.2 fL (80.0-100.0); Mean Platelet Volume 6.8; Monocytes # (A) 0.4 k/uL (0-1.0); Monocytes % (A) 6 %; Neutrophils # (A) 3.8 k/uL (1.3-7.7); Neutrophils % (A) 63 %; Platelet Count 382 k/uL (150-450); Potassium 4.4 mmol/L (3.5-5.1); Prothrombin Time 10.3 sec (9.0-12.0); RBC 3.97 m/uL (3.80-5.40); RDW 14.5 % (11.5-15.5); Total Bilirubin 0.2 mg/dL (0.2-1.3); Total Protein 6.5 g/dL (6.3-8.2)
--- NOTE | 2020-11-05 21:28 | CT ---
EXAMINATION TYPE: CT brain carlosine wo con DATE OF EXAM: 11/05/2020 COMPARISON: CT brain 05/28/2016 HISTORY: fall CT DLP: 1273 mGycm Automated exposure control for dose reduction was used. Images obtained of the brain and cervical spine without contrast. There is cerebral cortical atrophy. There is no mass effect nor midline shift. There is no sign of in tracranial hemorrhage. There is some mild hypodensity in the periventricular white matter. The calvar ium is intact. Skull base is intact. There is normal aeration of the mastoid sinuses. Cervical vertebra have normal alignment. There is degenerative disc space narrowing at C5-6 and C6-7 with spurring. Posterior elements are intact. There is multilevel hypertrophic facet arthropathy. The re is no evidence of cervical spine fracture. IMPRESSION: Cerebral atrophy. No acute intracranial abnormality. Chronic small vessel ischemia. Spondylotic changes in the lower cervical spine. No fracture. There is mild progression of the white matter disease of the brain compared to old exam.
--- NOTE | 2020-11-05 21:32 | XR ---
EXAMINATION TYPE: XR pelvis AP view DATE OF EXAM: 11/05/2020 COMPARISON: 10/23/2018 HISTORY: Pain. Fall. TECHNIQUE: Single view FINDINGS: There is an acute intertrochanteric fracture right femur. There is slight impaction. The pe lvic ring is intact. There is osteopenia. There is intramedullary jaylon and transverse screw fixing old fracture left femur. IMPRESSION: Acute intertrochanteric fracture right femur.
--- NOTE | 2020-11-05 21:34 | XR ---
EXAMINATION TYPE: XR chest 1V portable DATE OF EXAM: 11/05/2020 COMPARISON: 10/30/2018 HISTORY: Trauma. Pain. TECHNIQUE: Single view FINDINGS: There is no heart failure nor confluent pneumonic infiltrate. Costophrenic angles are clear . Thoracic aorta is atheromatous. There are no hilar masses. IMPRESSION: No active cardiopulmonary disease. Atheromatous aorta. No change.
[2020-11-05] MEDS ORDERED: MORPHINE SULFATE 4 MG/ML SYRINGE IV STA (21:35)
[2020-11-05] MEDS ORDERED: NALOXONE 0.4 MG/ML 1 ML VIAL IV PRN (21:42)
[2020-11-05] MEDS ORDERED: TRANEXAMIC ACID 1,000 MG in SODIUM CHLORIDE 0.9% 100 ML IVPB ONE (22:06)
--- NOTE | 2020-11-05 22:35 | XR ---
EXAMINATION TYPE: XR Hip Complete RT DATE OF EXAM: 11/05/2020 COMPARISON: NONE HISTORY: Fall. Pain. TECHNIQUE: 2 views FINDINGS: There is mildly impacted acute intertrochanteric fracture of the right femur with some coxa vera deformity. There is no dislocation. Acetabulum is intact. IMPRESSION: Acute intertrochanteric fracture of the right femur.
--- NOTE | 2020-11-05 22:37 | XR ---
EXAMINATION TYPE: XR femur RT DATE OF EXAM: 11/05/2020 COMPARISON: NONE HISTORY: Fall. Pain TECHNIQUE: 4 views FINDINGS: There is acute intertrochanteric fracture of the right femur. The knee joint appears intact . There is no dislocation. Right acetabulum appears intact. IMPRESSION: Acute intertrochanteric fracture right femur.
[2020-11-05] MEDS: SODIUM CHLORIDE 0.9% 1,000 ML IV SCH (22:45)
[2020-11-06 02:08] LABS: Appearance,Urine Cloudy (Clear); Bacteria,Urine Occasional /hpf; Bilirubin,Urine Negative (Negative); Blood,Urine Trace (Negative); Color,Urine Light Yellow; Glucose,Urine (UA) Negative (Negative); Ketones,Urine Negative (Negative); Leukocyte Esterase,Urine Large (Negative); Mucus,Urine Rare /hpf; Nitrite,Urine Negative (Negative); Protein,Urine 1+ (Negative); RBC,Urine 35 /hpf (0-5); Specific Gravity,Urine 1.013 (1.001-1.035); Squamous Epithelial Cell,Urine 18 /hpf (0-4); Urobilinogen,Urine <2.0 mg/dL (<2.0); WBC,Urine 47 /hpf (0-5)
[2020-11-06 02:14] LABS: Amphetamine Screen,Urine Not Detected (NotDetected); Benzodiazepines Screen,Urine Not Detected (NotDetected); Cocaine Screen,Urine Not Detected (NotDetected); Opiate Screen,Urine Detected (NotDetected); Phencyclidine Screen,Urine Not Detected (NotDetected)
[2020-11-06 02:15] LABS: Barbiturate Screen,Urine Not Detected (NotDetected); Methadone Screen, Urine Not Detected (NotDetected); Oxycodone Screen, Urine Not Detected (NotDetected); Tricyclic Antidepressant,Urine Detected (NotDetected); Urn Cannabinoid Scrn Not Detected (NotDetected)
[2020-11-06] MEDS: ONDANSETRON 4 MG/2 ML VIAL IVP PRN ×3 (02:15→17:34)
[2020-11-06] MEDS: MORPHINE SULFATE 4 MG/ML SYRINGE IV PRN ×2 (02:15→15:22)
[2020-11-06] MEDS ORDERED: TRANEXAMIC ACID 1,000 MG in SODIUM CHLORIDE 0.9% 100 ML IVPB ONE ×2 (07:00→09:15)
[2020-11-06] MEDS ORDERED: SENNOSIDES 8.6 MG TAB PO PRN (07:00)
--- NOTE | 2020-11-06 08:59 | P.HPOR ---
History of Present Illness H&P Date: 11/06/20 Chief Complaint: Right Hip pain 85-year-old very pleasant female presented to the emergency department last night after a fall from standing at home. The patient states that she was with her family and they were having dinner and a couple of drinks she stood up and seemed to trip and fell onto her right hip. She complained of immediate right hip pain and inability to ambulate and was taken to the hospital via EMS. She states pain in her right hip was no radiation. She denies any loss of consciousness but states that she did hit her head when she fell. She is on e loquence for what she states she has been told his A. fib. She has been rate controlled however. She has a history of renal vasculitis as well as high blood pressure and hypercholesterol area and she denies any other lung or heart problems. She is otherwise very active in her day-to-day livings.. She does get help from her 3 daughters and occasionally uses a cane or a walker to get around. Currently she denies any numbness or tingling there is no fevers chills shortness of breath or chest pain. She is having some nausea and vomiting secondary to the pain medications that she got in the hospital. She has been held nothing by mouth overnight. She denies any other symptoms at this time no headache blurred vision change in vision Review of Systems 14 points review of systems completed and as stated in HPI, all other systems reviewed are negative. 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 Recieved both covid vaccines, 2nd dose around [facility] History of Any Multi-Drug Resistant Organisms: None Reported Past Surgical History: Appendectomy, Hysterectomy, Orthopedic Surgery Additional Past Surgical History / Comment(s): left ankle, left hip surgery x 2017 Past Anesthesia/Blood Transfusion Reactions: Postoperative Nausea & Vomiting (PONV) Past Psychological History: No Psychological Hx Reported Smoking Status: Former smoker Past Alcohol Use History: Occasional Past Drug Use History: None Reported - Past Family History Mother Family Medical History: Myocardial Infarction (SC) Additional Family Medical History / Comment(s): mother passed 5 at 52 from a SC Father Family Medical History: CVA/TIA Additional Family Medical History / Comment(s): father from stroke Medications and Allergies Home Medications Medication Instructions Recorded Confirmed Type Escitalopram [Lexapro] 20 mg PO DAILY 09/24/15 11/05/20 History mycophenolate mofetiL [Cellcept] 750 mg PO BID 09/24/15 11/05/20 History Verapamil HCl [Verapamil ER] 180 mg PO DAILY 05/28/16 11/05/20 History Dorzolamide/Timolol/Pf 1 drop BOTH EYES BID 10/11/18 11/05/20 History [Dorzolamide-Timolol 2%-0.5%] Levothyroxine Sodium 100 mcg PO HS 10/11/18 11/05/20 History ALPRAZolam [Xanax] 0.25 mg PO BID PRN 10/30/18 11/05/20 History Apixaban [Eliquis] 2.5 mg PO BID 11/05/20 11/05/20 History Atorvastatin [Lipitor] 20 mg PO HS 11/05/20 11/05/20 History Brimonidine Unknown Dose 1 drop BOTH EYES BID 11/05/20 11/05/20 History Latanoprost [Xalatan 0.005%] 1 drop BOTH EYES HS 11/05/20 11/05/20 History Metoprolol Tartrate [Lopressor] 25 mg PO BID 11/05/20 11/05/20 History Allergies Allergy/AdvReac Type Severity Reaction Status Date / Time No Known Allergies Allergy Verified 11/05/20 20:43 Physical Examination Osteopathic Statement: *. No significant issues noted on an osteopathic structural exam other than those noted in the History and Physical/Consult. Patient is alert and oriented 3 appears well-nourished well-hydrated is in no acute distress. They does not appear septic. On exam the patient has no tenderness to palpation of her thoracic or lumbar spine. There is no edema or ballottement sign. Lower extremities with 5 out of 5 strength in all major muscle groups Upper extremities show 5/5 strength in all major muscle groups. There is FROM that is painless of the b/l UE and LE in all major joints. They are intact to light touch sensation in L2 to S1 nerve distribution. DTR 2/4 in all upper and lower Patient has palpable dorsalis pedis was posterior tibial pulses. Compartments are soft and compressible. Patient shows a negative Homans, Roach's, negative Babinski's negative clonus bilaterally. negative straight leg raise bilaterally. No tensioning signs. Cranial nerves II through XII are grossly intact. Overall alignment is well-maintained in the sagittal coronal planes. she has pain with logroll of the right hip the hip is held in an externally rotated and flexed position which is a position of comfort for her. She is otherwise neurovascularly intact in this right lower extremity. Regular rate and rhythm CT AB superficial abrasions to right lower extremity over yepez appear old. She does complain of some pain in her head she has a very mild hematoma of her scalp. Results AP pelvis as well as AP lateral right hip and right femur obtained and reviewed in the emergency department and this demonstrates a peritrochanteric fracture of the right hip which is flexed and externally rotated and displaced. There is no apparent femoral neck fracture there is no fracture distal to this the remaining of the femur appears intact. AP pelvis demonstrates post surgical changes of the left hip status post IM nailing of the left hip several years back. No evidence of hardware failure or loosening. - Labs Labs: Abnormal Lab Results - Last 24 Hours (Table) 11/05/20 11/05/20 11/06/20 Range/Units 20:35 20:35 01:45 Hgb 10.6 L (11.4-16.0) gm/dL MCHC 30.6 L (31.0-37.0) g/dL Carbon Dioxide 18 L (22-30) mmol/L BUN 25 H (7-17) mg/dL Creatinine 1.39 H (0.52-1.04) mg/dL Urine Appearance Cloudy H (Clear) Urine Protein 1+ H (Negative) Urine Blood Trace H (Negative) Ur Leukocyte Esterase Large H (Negative) Urine RBC 35 H (0-5) /hpf Urine WBC 47 H (0-5) /hpf Ur Squamous Epith Cells 18 H (0-4) /hpf Urine Bacteria Occasional H (None) /hpf Urine Mucus Rare H (None) /hpf Urine Opiates Screen Detected H (NotDetected) U Tricyclic Antidepress Detected H (NotDetected) H & H 11/05/20 Range/Units 20:35 Hgb 10.6 L (11.4-16.0) gm/dL Hct 34.6 (34.0-46.0) % Coagulation 11/05/20 Range/Units 20:35 INR 1.0 (<1.2) Result Diagrams: 11/05/20 20:35 11/05/20 20:35 Assessment and Plan Assessment: A 85-year-old female status post fall from standing 1. Right hip intertrochanteric/peritrochanteric fracture, comminuted, displaced, rotated, closed 2. Blunt head trauma on eliquis, CT negative for any intracranial changes 3. History of A. fib 4. History of renal vasculitis, hypertension, hyperlipidemia Plan: Confirmed NPO Abx pre op ordered TXA OR today Orthopedic Surgery Risk Review Selena Horton is a 85 yo female presenting for evaluation of sudden onset RIGHT pain, inability to ambulate after FFS. It was my pleasure to have seen and examined Selena Horton. In our visit today we have had a chance to go over subjective complaints, physical examination findings and treatments including the natural course history without intervention and various interventional options.Her imaging demonstrates R hip peritrochanteric fracture. On physical exam, Selena Horton demonstrates pain with motion of pain with movement of Right hip, inability to ambulate, which is NV intact at this time. I have explained to the patient that this fracture needs stabilization. Based on the patients imaging, physical exam, and the rapid progression and disabling nature of her symptoms, at this time I recommend surgery in the form or a: [procedure] I discussed the risk and benefits of this procedure at length with Selena Horton and her daughter Faye over the phone. Questions were invited and answered, and the patient wishes to proceed as outlined below. Currently, I am recommendin. RIGHT hip intramedullary nail fixation 2. Review of surgical risks and benefits as well as an educational packet on the proposed surgical procedure. Risks: All surgical procedures come with inherent risks, including those related to positioning, anesthesia, intraoperative findings, and postoperative complications. It is important to understand that surgery does not come with any guarantee of a successful outcome as complications and adverse events are always possible. The patient was given a handout discussing the surgical procedure and risks associated with the intervention, both of which were discussed with the patient. These risks include but are not limited to the following: - Experiencing same, different or even worse symptoms compared to before surgery. - Requiring further surgery or other forms of treatment presently or at some time in the future . - On an extreme but fortunately relatively rare basis severe complication such as blindness, stroke, heart attack, temporary and/or permanent nerve injury, paralysis, coma, or may occur, sometimes without known expla nation. - Surgical complications may include but are not limited to risk of infection, fluid accumulation in the surgical dissection site, including a seroma or hematoma, that requires additional surgery, wound drainage, bleeding, new numbness or weakness, vision changes/loss, spinal fluid leakage, non-healing and/or infected incision, headaches, difficulty or inability to swallow, hoarseness, hemopneumothorax, pneumothorax, injury to nerves, spinal cord, blood vessels, lymphatics or other vital organs (i.e., bowel injury, injury to the great vessels); heterotopic bone formation; complications related to the hardware such as screws, rods, including misplaced hardware, device failure, hardware fracture/breakage, or hardware loosening; retained surgical instrumentations or devices and the need for further surgery. - Medical risks of the planned surgery include but are not limited to generalized Infections to the whole body or local areas outside of the surgical site (sepsis), heart attack, bleeding, anaphylaxis, meningitis, seizure, epilepsy, hearing loss, burn nuñez, laceration of the head or other areas of the body, bruising, hypersensitivity of the skin, bladder over distension; allergic reaction; shoulder injury related to positioning; fat, blood and air clots to other areas of the body like heart, lungs, brain; failure of internal organs such as lungs, kidneys, liver and excessive bleeding. If blood transfusions are necessary, note that transfusions may cause intolerance reactions such as anaphylaxis or other complex reactions. Despite best efforts, the results of surgery might not heal in terms of bone, soft tissues such as skin, fascia, ligaments, and joints. [facility] is an educational center that serves as a training facility for physician assistants, nurses, orthopedic residents and fellows. Residents are physicians who are completing their surgical intensive training following medical school. They assist in the operating room with direct supervision of the attending surgeons. [place] are surgeons who have completed their training and eligible for board certification. They have opted for an elective year of more specialized training in their field. They assist in the operating room under the supervision of the attending surgeons. Physician assistants are medically trained surgical providers who function in the outpatient, inpatient, and operating room setting under the direct supervision of the attending surgeon. [facility] has multiple operating rooms with single and overlapping rooms running daily. They currently function under the required guidelines as produced by the [facility] Finance Committee with regards to the overlapping rooms and will continue to comply with changes to this policy as they occur. The requirements include and are complied with as follows: (1) the critical portions of the overlapping rooms will not occur at the same time, (2) the attending physician will be physically present during the critical portions of the procedure and immediately available during the entire case, and (3) a back-up attending is designated should the primary attending not be immediately available. The patient has had a chance to review all the listed information, has been given print outs detailing this information, and has had all his/her questions answered to their satisfaction. It was my pleasure to have seen and examined Selena Horton. In our visit today we have had a chance to go over my understanding of our patient's current condition, the natural course history without intervention and various interventional options. Questions were invited and answered, and the patient wishes to proceed as outlined above. I have seen and examined the patient for 25 minutes and we have spent more than 50% of the time in repeat and detailed counseling about the patient's condition, its natural course history with out and as much as can be predicted with surgery and re-review of various surgical treatment options. In conclusion, Selena Horton and her daughter Faye who we spoke to over the phone with the patient, requested we proceed with the above suggested surgery and are willing to accept risks and limitations of the suggested surgery as nature of the disease process and our best attempts at treatment for the condition. Thank you again for allowing us to be part of your patient's care. Please don't hesitate to contact me if you have any further questions. Signed and authenticated by: Scott Estrella DO [facility] [address], [address] [address] Time with Patient: Greater than 30
[2020-11-06] MEDS ORDERED: LIDOCAINE 1% INJ 10MG/ML (20 ML MDV) ONE (09:29)
[2020-11-06] MEDS ORDERED: ONDANSETRON 4 MG/2 ML VIAL ONE (09:29)
[2020-11-06] MEDS ORDERED: SUCCINYLCHOLINE CHLORIDE 100 MG/5 ML SYR IV ONE (09:29)
[2020-11-06] MEDS ORDERED: fentaNYL (PF) 50 MCG/ML 2 ML AMP ONE (09:29)
[2020-11-06] MEDS ORDERED: LABETALOL 5 MG/ML VIAL MDV ONE (09:29)
[2020-11-06] MEDS ORDERED: SODIUM CHLORIDE 0.9% 100 ML BAG ONE (09:29)
[2020-11-06] MEDS ORDERED: LACTATED RINGERS 1,000 ML IV ONE (09:29)
[2020-11-06] MEDS ORDERED: DEXAMETHASONE SOD PHOSPHATE 10 MG/ML 1 ML VIAL ONE (09:29)
[2020-11-06] MEDS ORDERED: ceFAZolin 1,000 MG VIAL ONE (09:29)
[2020-11-06] MEDS ORDERED: ETOMIDATE 2 MG/ML 10 ML VIAL ONE (09:29)
[2020-11-06] MEDS ORDERED: TRANEXAMIC ACID 1,000 MG in SODIUM CHLORIDE 0.9% 100 ML IV STA (09:56)
[2020-11-06] MEDS ORDERED: ceFAZolin 1,000 MG in SODIUM CHLORIDE 0.9% 1,000 ML IRRIGATION ONE (10:28)
--- NOTE | 2020-11-06 10:50 | XR ---
EXAMINATION TYPE: XR Hip Limited RT DATE OF EXAM: 11/06/2020 COMPARISON: NONE HISTORY: Postop TECHNIQUE: One view submitted. FINDINGS: There is postsurgical change in near anatomic alignment. There is soft tissue edema and emphysema. IMPRESSION: 1. Postoperative change. Appears in near-anatomic alignment.
[2020-11-06] MEDS ORDERED: HYDROmorphone 0.5 MG/0.5 ML SYRINGE IVP ONE ×2 (11:05→11:20)
--- NOTE | 2020-11-06 11:15 | P.OP ---
Date of Procedure: 11/06/20 Preoperative Diagnosis: 1. Right hip peritrochanteric intertrochanteric fracture displaced comminuted closed 2. Status post fall from standing 3. Multiple medical comorbidities Postoperative Diagnosis: Same Procedure(s) Performed: 1. Intramedullary nail fixation right hip Implants: [employer]TAN 180 mm nail with a 95 mm lag screw 90 mm derotational screw and 27.5 mm distal locking screw static Anesthesia: GETA Surgeon: Scott Estrella Estimated Blood Loss (ml): 100 IV fluids (ml): 1,000 Urine output (ml): 250 Pathology: none sent Condition: stable Disposition: PACU Indications for Procedure: This is a very pleasant 85-year-old female who sustained a fall from standing yesterday and was brought to the emergency department and found to have a right hip intertrochanteric peritrochanteric fracture. The patient has a history of a left peritrochanteric fracture which was fixed with an intramedullary nail. Stone 2015. Patient and her daughter state that she was at home last night having dinner with her family when she sits slipped and fell onto her right hip she is unable to ambulate afterwards. She claims the pain in her right hip. We discussed the risks and benefits of surgery including risk of bleeding infection damage to tissue risk of reoperation screw anesthesia including screws were placed in these risks and all risks of surgery she is ready for surgery t briana. Operative Findings: Comminuted displaced rotated peritrochanteric fracture of the right hip Description of Procedure: The patient was seen and examined in the preoperative area. All preoperative protocols were followed. Informed consent was obtained risks and benefits of the procedure were discussed at length. Risks including bleeding infection damage to the surrounding tissue and risk of reoperation were discussed with the patient. Risk of anesthesia up to and including was a discussed with the patient. These are outlined in the risk reviewed. They were willing to accept these risks and all of the risks of surgery. The patient was given a weight- based dose of antibiotics in the form of 2 g of Ancef IVPB 1. She was also given a gram of trans-examined casted upon incision.. The patient was seen and evaluated by the anesthesia team who deemed them fit for surgery. The site was marked, the patient was willing to proceed with the procedure. The patient was transferred to the operative suite by the Department of anesthesia. There were then drifted off to sleep by the department of anesthesia and GETA anesthesia was used. Once adequate anesthesia had been obtained the patient was carefully transferred to the operative bed. All bony prominences were padded accordingly. SCDs were placed on the nonoperative lower extremities. Arms were well padded. Her right leg was placed in a Aide boot was secured to the hand table of the left leg was placed in a well leg meneses was secured and padded accordingly. The right hip was then placed in traction with internal rotation and some abduction to reduce the fracture preoperative x-rays were performed and AP and lateral to confirm good fracture reduction. Preoperative briefing was done with the operative team and everyone was ready for the procedure to start. The patients right leg was then prepped and draped in the normal sterile fashion. Timeout was then performed and all parties in agreement with the procedure to be performed. Incision was made 2 cm proximal to the greater trochanteric region on the right which was pierced by marked with AP and lateral fluoroscopy. Incision was taken down and gluteal fascia which was split bluntly. This allowed palpation of the greater trochanteric region a starting guidewire was then placed under AP lateral fluoroscopy at the tip of the greater trochanter slightly medial and in line with the center of femoral neck. This was confirmed to be in good position on AP and lateral once was in good position opening reamer was then placed through a tissue protector over the guidewire and the area was opened with the opening reamer. We then selected a 11 mm 130 short nail which was then placed through this opening with ease and under AP and lateral fluoroscopy position in good position with the femoral neck as well as the calcar region we then placed the guide for the lag screw skin incision was made and blunt dissection taken down through the IT band to the femur and the jig was then seated against bone and a guidewire was placed through this jig to be within 10 mm of the subchondral cortex in the AP and lateral views and center center within the head and neck. Once this was in place we then drilled the lateral cortex for the derotational screw under AP and lateral fluoroscopy once this was drilled the spatula was placed to allow for stability we then measured and drilled a 95 mm lag screw over the wire under AP and lateral fluoroscopy. We then were able to place the lag screw over the wire under AP and lateral fluoroscopy and confirmed to be in good position once it was in good position we then removed the spatula and placed the derotational screw we did perform a proximally 5 mm of compression on this screw once the leg was taken out of traction to allow for compression of the fracture this was confirmed to be in good position and with good fracture reduction on AP and lateral fluoroscopy we then locked the nail proximally. We then turned our attention to the distal static locking screw was placed through the outrigger jig. Skin incision was made a stab incision over the appropriate trajectory the jig was placed on bone we then drilled a 27.5 mm screw and this was then placed through the outrigger jig. Everything was removed from the nail and we took final fluoroscopy then of AP and lateral which confirmed good placement of the nail lag screw derotational screw and distal locking screws were all in good position and fracture heads been reduced and remained stable. We then copiously irrigated the wounds with 3 L of normal sterile saline the fascia of the proximal incisions was then closed with 0 Vicryl followed by 2-0 Vicryl in the subcu followed by catracho in the skin was then cleaned and dressed sterilely with sterile Telfa 4 x 4's and Tegaderms. The patient was then transferred back to their hospital bed. There were awakened by department of anesthesia having tolerated the procedure very well with no complications. The patient was then transported to the postoperative care unit in stable condition.
[2020-11-06] MEDS ORDERED: LABETALOL SYRINGE 5 MG/ML IVP ONE (11:35)
--- NOTE | 2020-11-06 12:18 | FL ---
Fluoroscopy HISTORY: Open reduction internal fixation 80 seconds fluoroscopy time supplied to the referring clinician. 2 intraoperative C-arm images docum ent the procedure. See dictated report from orthopedic surgery.
--- NOTE | 2020-11-06 15:01 | P.CONS ---
History of Present Illness - Reason for Consult Consult date: 11/06/20 Medical management - Chief Complaint Fall with right hip fracture - History of Present Illness 85-year-old very pleasant female presented to the emergency department last night after a fall from standing at home. The patient states that she was with her family and they were having dinner and a couple of drinks she stood up and seemed to trip and fell onto her right hip. She complained of immediate right hip pain and inability to ambulate and was taken to the hospital via EMS. She states pain in her right hip was no radiation. She denies any loss of consciousness but states that she did hit her head when she fell. She is on eloquence for what she states she has been told his A. fib. She has been rate controlled however. She has a history of renal vasculitis as well as high blood pressure and hypercholesterol area and she denies any other lung or heart problems. She is otherwise very active in her day-to-day livings.. She does get help from her 3 daughters and occasionally uses a cane or a walker to get around. AP pelvis as well as AP lateral right hip and right femur obtained and reviewed in the emergency department and this demonstrates a peritrochanteric fracture of the right hip which is flexed and externally rotated and displaced. There is no apparent femoral neck fracture there is no fracture distal to this the remaining of the femur appears intact. AP pelvis demonstrates post surgical changes of the left hip status post IM nailing of the left hip several years back. No evidence of hardware failure or loosening. Review of Systems REVIEW OF SYSTEMS: CONSTITUTIONAL: No fever, no malaise, no fatigue. HEENT: No recent visual problems or hearing problems. Denied any sore throat. CARDIOVASCULAR: No chest pain, orthopnea, PND, no palpitations, no syncope. PULMONARY: No shortness of breath, no cough, no hemoptysis. GASTROINTESTINAL: No diarrhea, no nausea, no vomiting, no abdominal pain. NEUROLOGICAL: No headaches, no weakness, no numbness. HEMATOLOGICAL: Denies any bleeding or petechiae. GENITOURINARY: Denies any burning micturition, frequency, or urgency. MUSCULOSKELETAL/RHEUMATOLOGICAL: Denies any joint pain, swelling, or any muscle pain. ENDOCRINE: Denies any polyuria or polydipsia. The rest of the 14-point review of systems is negative. 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 Recieved both covid vaccines, [place] dose [place] History of Any Multi-Drug Resistant Organisms: None Reported Past Surgical History: Appendectomy, Hysterectomy, Orthopedic Surgery Additional Past Surgical History / Comment(s): left ankle, left hip surgery x 2017 Past Anesthesia/Blood Transfusion Reactions: Postoperative Nausea & Vomiting (PONV) Past Psychological History: No Psychological Hx Reported Smoking Status: Former smoker Past Alcohol Use History: Occasional Past Drug Use History: None Reported - Past Family History Mother Family Medical History: Myocardial Infarction (GA) Additional Family Medical History / Comment(s): mother passed 5 at 52 from a [place] Father Family Medical History: CVA/TIA Additional Family Medical History / Comment(s): father from stroke Medications and Allergies Home Medications Medication Instructions Recorded Confirmed Type Escitalopram [Lexapro] 20 mg PO DAILY 09/24/15 11/05/20 History mycophenolate mofetiL [Cellcept] 750 mg PO BID 09/24/15 11/05/20 History Verapamil HCl [Verapamil ER] 180 mg PO DAILY 05/28/16 11/05/20 History Dorzolamide/Timolol/Pf 1 drop BOTH EYES BID 10/11/18 11/05/20 History [Dorzolamide-Timolol 2%-0.5%] Levothyroxine Sodium 100 mcg PO HS 10/11/18 11/05/20 History ALPRAZolam [Xanax] 0.25 mg PO BID PRN 10/30/18 11/05/20 History Apixaban [Eliquis] 2.5 mg PO BID 11/05/20 11/05/20 History Atorvastatin [Lipitor] 20 mg PO HS 11/05/20 11/05/20 History Brimonidine Unknown Dose 1 drop BOTH EYES BID 11/05/20 11/05/20 History Latanoprost [Xalatan 0.005%] 1 drop BOTH EYES HS 11/05/20 11/05/20 History Metoprolol Tartrate [Lopressor] 25 mg PO BID 11/05/20 11/05/20 History Allergies Allergy/AdvReac Type Severity Reaction Status Date / Time No Known Allergies Allergy Verified 11/05/20 20:43 Physical Exam Vitals: Vital Signs Temp Pulse Pulse Resp BP BP Pulse Ox 11/06/20 08:00 63 18 11/06/20 07:30 98.3 F 63 18 185/80 90 L 11/06/20 02:00 18 11/06/20 01:53 98.2 F 69 18 173/76 92 L 11/06/20 00:15 98.0 F 105 H 16 178/81 91 L 11/05/20 19:59 97.6 F 92 20 124/97 100 Intake and Output 11/05/20 11/06/20 11/06/20 22:59 06:59 14:59 Output Total 350 Balance -350 Output: Urine 350 Other: Voiding Method External Catheter External Catheter Weight 45.359 kg 45.359 kg - Constitutional General appearance: Present: average body habitus, cooperative, no acute distress - EENT Eyes: Present: anicteric sclerae, EOMI, PERRLA, normal appearance ENT: Present: hearing grossly normal, normal oropharynx Ears: bilateral: normal - Neck Neck: Present: normal ROM. Absent: lymphadenopathy, rigidity, thyromegaly Carotids: negative: bruit present Thyroid: bilateral: normal size, negative: enlarged, nodule - Respiratory Respiratory: bilateral: CTA, negative: rales, rhonchi, wheezing - Cardiovascular Rhythm: regular Heart sounds: normal: S1, S2 Abnormal Heart Sounds: Absent: systolic murmur, diastolic murmur - Gastrointestinal General gastrointestinal: Present: normal bowel sounds, soft. Absent: distended, organomegaly, tenderness - Genitourinary Genitourinary Comment(s): deferred - Integumentary Integumentary: Present: normal turgor. Absent: jaundiced, rash, ulcer - Neurologic Neurologic: Present: CNII-XII intact. Absent: focal deficits - Musculoskeletal Musculoskeletal: Present: gait normal, strength equal bilaterally - Psychiatric Psychiatric: Present: A&O x's 3, appropriate affect, intact judgment & insight Results CBC & Chem 7: 11/05/20 20:35 11/05/20 20:35 Labs: Abnormal Lab Results - Last 24 Hours (Table) 11/05/20 11/05/20 11/06/20 Range/Units 20:35 20:35 01:45 Hgb 10.6 L (11.4-16.0) gm/dL MCHC 30.6 L (31.0-37.0) g/dL Carbon Dioxide 18 L (22-30) mmol/L BUN 25 H (7-17) mg/dL Creatinine 1.39 H (0.52-1.04) mg/dL Urine Appearance Cloudy H (Clear) Urine Protein 1+ H (Negative) Urine Blood Trace H (Negative) Ur Leukocyte Esterase Large H (Negative) Urine RBC 35 H (0-5) /hpf Urine WBC 47 H (0-5) /hpf Ur Squamous Epith Cells 18 H (0-4) /hpf Urine Bacteria Occasional H (None) /hpf Urine Mucus Rare H (None) /hpf Urine Opiates Screen Detected H (NotDetected) U Tricyclic Antidepress Detected H (NotDetected) Assessment and Plan Assessment: 1. Right hip comminuted fracture - Orthopedic surgery is following and patient is kept nothing by mouth for OR today 2. Fall/blunt head trauma; patient is on anticoagulation; CT of head done in ED was negative for intracranial changes 3. Atrial fibrillation; remains rate controlled on verapamil and metoprolol and systemic anticoagulation 1. Hypertension; verapamil 180 mg daily; metoprolol 25 mg twice a day 5. Hyperlipidemia; Lipitor 20 mg by mouth daily at bedtime 6. Hypothyroidism; levothyroxin 100 MCG daily DVT prophylaxis; SCDs only CODE STATUS; full code
[2020-11-06] MEDS: SODIUM CHLORIDE 0.9% 1,000 ML IV SCH ×2 (15:22→23:38)
[2020-11-06] MEDS: ACETAMINOPHEN TAB 325 MG TAB PO PRN (17:33)
[2020-11-06] MEDS: LEVOTHYROXINE 100 MCG TAB PO SCH (20:34)
[2020-11-06] MEDS: LATANOPROST 0.005% OPHTH DROPS 2.5 ML BTL BOTH EYES SCH (20:35)
[2020-11-06] MEDS: DORZOLAMIDE-TIMOLOL 2.23%/0.68 10ML BTL BOTH EYES SCH (20:35)
[2020-11-07] MEDS: ACETAMINOPHEN TAB 325 MG TAB PO PRN ×3 (05:47→18:27)
[2020-11-07] MEDS: SODIUM CHLORIDE 0.9% 1,000 ML IV SCH (05:48)
[2020-11-07] MEDS: DORZOLAMIDE-TIMOLOL 2.23%/0.68 10ML BTL BOTH EYES SCH ×2 (07:33→21:57)
[2020-11-07] MEDS ORDERED: ALPRAZolam 0.25 MG TAB PO PRN (07:35)
[2020-11-07] MEDS: METOPROLOL TARTRATE 25 MG TAB PO SCH ×2 (09:13→21:55)
[2020-11-07] MEDS: ESCITALOPRAM 20 MG TAB PO SCH (09:13)
[2020-11-07] MEDS: VERAPAMIL SR 180 MG TABLET.ER PO SCH (09:15)
--- NOTE | 2020-11-07 09:43 | P.PN ---
Subjective Progress Note Date: 11/07/20 Principal diagnosis: RT hip fx pt s/e this am she is doing fairly well. She slept last night and did not have any issues. She has not been up yet or oob. She still has zabala. She c/o pain when she moves her hip but otherwise it feels much better than before. Denies any f/c/sob/cp at this time. Objective - Vital Signs Vital signs: Vital Signs Temp 98 F 11/07/20 07:19 Pulse 82 11/07/20 07:19 Resp 18 11/07/20 07:19 BP 189/96 11/07/20 07:19 Pulse Ox 98 11/07/20 07:54 Intake & Output 11/06/20 11/07/20 11/07/20 18:59 06:59 18:59 Intake Total 451 Output Total 750 750 Balance -299 -750 Weight 45.359 kg Intake: IV 451 Output: Urine 650 750 Estimated Blood Loss 100 Other: Voiding Method External Catheter Indwelling Catheter # Bowel Movements 0 - Exam Patient is alert and oriented 3 appears well-nourished well-hydrated is in no acute distress. They does not appear septic. On exam the patient has no tenderness to palpation of her thoracic or lumbar spine. There is no edema or ballottement sign. Lower extremities with 5 out of 5 strength in all major muscle groups Upper extremities show 5/5 strength in all major muscle groups. There is FROM that is painless of the b/l UE and LE in all major joints. They are intact to light touch sensation in L2 to S1 nerve distribution. 2 over 4 DTR all Patient has palpable dorsalis pedis was posterior tibial pulses. Compartments are soft and compressible. Patient shows a negative Homans, Roach's, negative Babinski's negative clonus bilaterally. negative straight leg raise bilaterally. No tensioning signs. Cranial nerves II through XII are grossly intact. Overall alignment is well-maintained in the sagittal coronal planes. Dressings are clean dry and intact in the right hip mild tenderness to palpation right hip no erythema or ecchymosis or edema minimal swelling - Labs CBC & Chem 7: 11/05/20 20:35 11/05/20 20:35 Assessment and Plan Assessment: A 85-year-old female status post fall from standing postoperative day 1 right hip intramedullary nail placement 1. Right hip intertrochanteric/peritrochanteric fracture, comminuted, displaced, rotated, closed 2. Blunt head trauma on eliquis, CT negative for any intracranial changes 3. History of A. fib 4. History of renal vasculitis, hypertension, hyperlipidemia Plan: -Appreciate medicine management. Symptom Control: -Pain control: Adequate at this time . Would recommend low on the narcotic side of pain medications if needed. Could try a muscle relaxer as well Activity: -Aggressive ambulation protocol. OOB with all meals. OOB or in chair 4-5x daily. -PT/OT Prophylaxis: -TEDs, SCDs, mechanical ppx. OK for heparin today. Early ambulation is best. -GI ppx. Imaging/labs: No further imaging needed at this time -Trend labs as appropriate Intervention: Continue with pain control icing and rest up with physical therapy and ambulation Dispo: Pending
[2020-11-07 10:01] LABS: Basophils # (A) 0.02 X 10*3/uL (0.00-0.10); Basophils % (A) 0.2 %; Eosinophils # (A) 0 X 10*3/uL (0.04-0.35); Eosinophils % (A) 0 %; Lymphocytes # (A) 0.88 X 10*3/uL (0.90-5.00); Lymphocytes % (A) 10.3 %; MCH 26.8 pg (27.0-32.0); MCHC 29.6 g/dL (32.0-37.0); MCV 90.6 fL (80.0-97.0); Mean Platelet Volume 9.7 fL (9.5-12.2); Monocytes # (A) 0.92 X 10*3/uL (0.20-1.00); Monocytes % (A) 10.8 %; Neutrophils # (A) 6.68 X 10*3/uL (1.80-7.70); Neutrophils % (A) 78.3 %; Platelet Count 303 X 10*3/uL (140-440); RBC 2.98 X 10*6/uL (4.10-5.20); RDW 13.9 % (11.5-14.5); WBC 8.53 X 10*3/uL (4.50-10.00)
[2020-11-07 10:06] LABS: African American GFR (CKD) 47.4 (60.0-200.0); BUN/Creat Ratio 18.33 Ratio (12.00-20.00); Calcium 8.4 mg/dL (8.7-10.3); Non-African American GFR(CKD) 40.9 (60.0-200.0); Potassium 5.2 mmol/L (3.5-5.5)
--- NOTE | 2020-11-07 14:51 | P.PN ---
Subjective Progress Note Date: 11/07/20 Principal diagnosis: Right hip comminuted fracture Fall/blunt head trauma Atrial fibrillation with systemic anticoagulation 85-year-old very pleasant female presented to the emergency department last night after a fall from standing at home. The patient states that she was with her family and they were having dinner and a couple of drinks she stood up and seemed to trip and fell onto her right hip. She complained of immediate right hip pain and inability to ambulate and was taken to the hospital via EMS. She states pain in her right hip was no radiation. She denies any loss of consciousness but states that she did hit her head when she fell. She is on eloquence for what she states she has been told his A. fib. She has been rate controlled however. She has a history of renal vasculitis as well as high blood pressure and hypercholesterol area and she denies any other lung or heart problems. She is otherwise very active in her day-to-day livings.. She does ge t help from her 3 daughters and occasionally uses a cane or a walker to get around. AP pelvis as well as AP lateral right hip and right femur obtained and reviewed in the emergency department and this demonstrates a peritrochanteric fracture of the right hip which is flexed and externally rotated and displaced. There is no apparent femoral neck fracture there is no fracture distal to this the remaining of the femur appears intact. AP pelvis demonstrates post surgical changes of the left hip status post IM nailing of the left hip several years back. No evidence of hardware failure or loosening. 11/07/2020 Patient is seen and evaluated in room at bedside; reports well-controlled pain; hasn't been out of bed.; No specific complaints Vital signs are reviewed and stable with a temperature 90.8, pulse 82, respiration 18 and blood pressure of 189/96 Patient is status post right hip intramedullary nail placement, POD #1; orthopedic surgery on board and recommending PT/OT evaluation; aggressive ambulation protocol; out of bed with all meals and in November 4-5 times daily; patient will continue to have SCDs; cleared for pharmacological anticoagulation with heparin Patient remains on IV fluids in form of normal saline at 85 mL an hour postoperatively; BUN/creatinine slightly elevated upon admission; we will monitor renal function and electrolytes and make adjustments to IV fluids accordingly Blood pressure remains elevated; patient is currently on metoprolol 25 mg twice a day; we will escalate antihypertensive; verapamil 180 mg daily has been added Objective - Vital Signs Vital signs: Vital Signs Temp 98 F 11/07/20 07:19 Pulse 82 11/07/20 08:00 Resp 18 11/07/20 08:00 BP 189/96 11/07/20 07:19 Pulse Ox 98 11/07/20 07:54 Intake & Output 11/06/20 11/07/20 11/07/20 18:59 06:59 18:59 Intake Total 451 Output Total 750 750 Balance -299 -750 Weight 45.359 kg Intake: IV 451 Output: Urine 650 750 Estimated Blood Loss 100 Other: Voiding Method External Catheter Indwelling Catheter Indwelling Catheter # Bowel Movements 0 - Exam - Constitutional General appearance: Present: average body habitus, cooperative, no acute distress - EENT Eyes: Present: anicteric sclerae, EOMI, PERRLA, normal appearance ENT: Present: hearing grossly normal, normal oropharynx Ears: bilateral: normal - Neck Neck: Present: normal ROM. Absent: lymphadenopathy, rigidity, thyromegaly Carotids: negative: bruit present Thyroid: bilateral: normal size, negative: enlarged, nodule - Respiratory Respiratory: bilateral: CTA, negative: rales, rhonchi, wheezing - Cardiovascular Rhythm: regular Heart sounds: normal: S1, S2 Abnormal Heart Sounds: Absent: systolic murmur, diastolic murmur - Gastrointestinal General gastrointestinal: Present: normal bowel sounds, soft. Absent: distended, organomegaly, tenderness - Genitourinary Genitourinary Comment(s): deferred - Integumentary Integumentary: Present: normal turgor. Absent: jaundiced, rash, ulcer - Neurologic Neurologic: Present: CNII-XII intact. Absent: focal deficits - Musculoskeletal Musculoskeletal: Present: gait normal, strength equal bilaterally - Psychiatric Psychiatric: Present: A&O x's 3, appropriate affect, intact judgment & insight - Labs CBC & Chem 7: 11/07/20 05:19 11/07/20 05:19 Labs: Abnormal Lab Results - Last 24 Hours (Table) 11/07/20 11/07/20 Range/Units 05: 05:19 RBC 2.98 L (4.10-5.20) X 10*6/uL Hgb 8.0 L (12.0-15.0) g/dL Hct 27.0 L (37.2-46.3) % MCH 26.8 L (27.0-32.0) pg MCHC 29.6 L (32.0-37.0) g/dL Lymphocytes # 0.88 L (0.90-5.00) X 10*3/uL Eosinophils # 0 L (0.04-0.35) X 10*3/uL Est GFR (CKD-EPI)AfAm 47.4 L (60.0-200.0) Est GFR (CKD-EPI)NonAf 40.9 L (60.0-200.0) Calcium 8.4 L (8.7-10.3) mg/dL Assessment and Plan Assessment: 1. Right hip comminuted fracture - Orthopedic surgery is following and patient is kept nothing by mouth for OR today 2. Fall/blunt head trauma; patient is on anticoagulation; CT of head done in ED was negative for intracranial changes 3. Atrial fibrillation; remains rate controlled on verapamil and metoprolol and systemic anticoagulation 1. Hypertension; verapamil 180 mg daily; metoprolol 25 mg twice a day 5. Hyperlipidemia; Lipitor 20 mg by mouth daily at bedtime 6. Hypothyroidism; levothyroxin 100 MCG daily DVT prophylaxis; SCDs only CODE STATUS; full code
[2020-11-07 15:55] LABS: Basophils % (A) 0 %; Eosinophils # (A) 0.1 k/uL (0-0.7); Eosinophils % (A) 1 %; HCT 25.5 % (34.0-46.0); Hypochromasia Slight; Lymphocytes # (A) 1.2 k/uL (1.0-4.8); Lymphocytes % (A) 14 %; MCH 27.9 pg (25.0-35.0); MCHC 31.9 g/dL (31.0-37.0); MCV 87.6 fL (80.0-100.0); Monocytes # (A) 0.7 k/uL (0-1.0); Monocytes % (A) 8 %; Neutrophils # (A) 6.6 k/uL (1.3-7.7); Neutrophils % (A) 76 %; Platelet Count 275 k/uL (150-450); RBC 2.91 m/uL (3.80-5.40); RDW 14.4 % (11.5-15.5); WBC 8.6 k/uL (3.8-10.6)
[2020-11-07 15:57] LABS: HGB 8.1 gm/dL (11.4-16.0)
[2020-11-07 16:05] LABS: African American GFR (CKD) 46 (>60 ml/min/1.73 sqM); Anion Gap 5 mmol/L; Blood Urea Nitrogen 23 mg/dL (7-17); Calcium 8.8 mg/dL (8.4-10.2); Carbon Dioxide 23 mmol/L (22-30); Chloride 107 mmol/L (98-107); Glucose 86 mg/dL (74-99); Non-African American GFR(CKD) 40 (>60 ml/min/1.73 sqM); Potassium 4.6 mmol/L (3.5-5.1); Sodium 135 mmol/L (137-145)
[2020-11-07] MEDS: KETOROLAC 15 MG/ML 1 ML VIAL IVP PRN (21:54)
[2020-11-07] MEDS: HEPARIN SODIUM,PORCINE/PF 5,000 UNIT/0.5 ML SYRINGE SQ SCH (21:55)
[2020-11-07] MEDS: LEVOTHYROXINE 100 MCG TAB PO SCH (21:55)
[2020-11-07] MEDS: ATORVASTATIN 20 MG TAB PO SCH (21:57)
[2020-11-07] MEDS: LATANOPROST 0.005% OPHTH DROPS 2.5 ML BTL BOTH EYES SCH (21:58)
[2020-11-08] MEDS: SODIUM CHLORIDE 0.9% 1,000 ML IV SCH ×2 (00:13→09:15)
--- NOTE | 2020-11-08 08:15 | P.PN ---
Subjective Progress Note Date: 11/08/20 Principal diagnosis: RT hip fx pt s/e she is doing well. Was up yesterday around the room and to commode with nsg help. She would like some PT today. States pain is manageable. Denies any new symptoms no fevers chills or some breath or chest pain at this time. No numbness or tingling. She is voiding and is passing gas she is tolerating by mouth at this time Objective - Vital Signs Vital signs: Vital Signs Temp 98.7 F 11/08/20 07:31 Pulse 80 11/08/20 07:31 Resp 18 11/08/20 07:31 BP 145/74 11/08/20 07:31 Pulse Ox 95 11/08/20 07:31 Intake & Output 11/07/20 11/08/20 11/08/20 18:59 06:59 18:59 Output Total 450 Balance -450 Output: Urine 450 Other: Voiding Method Indwelling Catheter Indwelling Catheter # Bowel Movements 0 1 - Exam Exam remains orthopedically stable today Patient is alert and oriented 3 appears well-nourished well-hydrated is in no acute distress. They does not appear septic. On exam the patient has no tenderness to palpation of her thoracic or lumbar spine. There is no edema or ballottement sign. Lower extremities with 5 out of 5 strength in all major muscle groups Upper extremities show 5/5 strength in all major muscle groups. There is FROM that is painless of the b/l UE and LE in all major joints. They are intact to light touch sensation in L2 to S1 nerve distribution. 2 over 4 DTR all Patient has palpable dorsalis pedis was posterior tibial pulses. Compartments are soft and compressible. Patient shows a negative Homans, Roach's, negative Babinski's negative clonus bilaterally. negative straight leg raise bilaterally. No tensioning signs. Cranial nerves II through XII are grossly intact. Overall alignment is well-maintained in the sagittal coronal planes. Dressings are clean dry and intact in the right hip mild tenderness to palpation right hip no erythema or ecchymosis or edema minimal swelling - Labs CBC & Chem 7: 11/07/20 15:22 11/07/20 15:22 Labs: Abnormal Lab Results - Last 24 Hours (Table) 11/07/20 11/07/20 11/07/20 Range/Units 05:19 05:19 15:22 RBC 2.98 L 2.91 L (4.10-5.20) X 10*6/uL Hgb 8.0 L 8.1 L D (12.0-15.0) g/dL Hct 27.0 L 25.5 L (37.2-46.3) % MCH 26.8 L (27.0-32.0) pg MCHC 29.6 L (32.0-37.0) g/dL Lymphocytes # 0.88 L (0.90-5.00) X 10*3/uL Eosinophils # 0 L (0.04-0.35) X 10*3/uL Sodium (137-145) mmol/L BUN (7-17) mg/dL Creatinine (0.52-1.04) mg/dL Est GFR (CKD-EPI)AfAm 47.4 L (60.0-200.0) Est GFR (CKD-EPI)NonAf 40.9 L (60.0-200.0) Calcium 8.4 L (8.7-10.3) mg/dL 11/07/ Range/Units 15:22 RBC (4.10-5.20) X 10*6/uL Hgb (12.0-15.0) g/dL Hct (37.2-46.3) % MCH (27.0-32.0) pg MCHC (32.0-37.0) g/dL Lymphocytes # (0.90-5.00) X 10*3/uL Eosinophils # (0.04-0.35) X 10*3/uL Sodium 135 L (137-145) mmol/L BUN 23 H (7-17) mg/dL Creatinine 1.23 H (0.52-1.04) mg/dL Est GFR (CKD-EPI)AfAm (60.0-200.0) Est GFR (CKD-EPI)NonAf (60.0-200.0) Calcium (8.7-10.3) mg/dL Assessment and Plan Assessment: A 85-year-old female status post fall from standing postoperative day 2 right hip intramedullary nail placement 1. Right hip intertrochanteric/peritrochanteric fracture, comminuted, displaced, rotated, closed 2. Blunt head trauma on eliquis, CT negative for any intracranial changes 3. History of A. fib 4. History of renal vasculitis, hypertension, hyperlipidemia Plan: -Appreciate medicine management. Symptom Control: -Pain control: Adequate at this time . Would recommend low on the narcotic side of pain medications if needed. Could try a muscle relaxer as well Activity: -Aggressive ambulation protocol. OOB with all meals. OOB or in chair 4-5x daily. -PT/OT Prophylaxis: -TEDs, SCDs, mechanical ppx. OK for heparin today. Early ambulation is best. -GI ppx. Imaging/labs: No further imaging needed at this time -Trend labs as appropriate Intervention: Continue with pain control icing and rest up with physical therapy and ambulation Dispo: Home likely Sunday or Sunday. With home health care. Patient has good help at home with 3 daughters would like to go home versus [facility]
[2020-11-08] MEDS: KETOROLAC 15 MG/ML 1 ML VIAL IVP PRN ×3 (09:05→23:01)
[2020-11-08] MEDS: VERAPAMIL SR 180 MG TABLET.ER PO SCH (09:06)
[2020-11-08] MEDS: ESCITALOPRAM 20 MG TAB PO SCH (09:07)
[2020-11-08] MEDS: METOPROLOL TARTRATE 25 MG TAB PO SCH ×2 (09:07→21:54)
[2020-11-08] MEDS: HEPARIN SODIUM,PORCINE/PF 5,000 UNIT/0.5 ML SYRINGE SQ SCH ×2 (09:09→21:54)
[2020-11-08] MEDS: DORZOLAMIDE-TIMOLOL 2.23%/0.68 10ML BTL BOTH EYES SCH ×2 (09:14→21:54)
[2020-11-08 11:08] LABS: Basophils # (A) 0.02 X 10*3/uL (0.00-0.10); Basophils % (A) 0.2 %; Eosinophils # (A) 0.09 X 10*3/uL (0.04-0.35); Eosinophils % (A) 1.1 %; HCT 26.5 % (37.2-46.3); HGB 7.6 g/dL (12.0-15.0); Lymphocytes # (A) 0.85 X 10*3/uL (0.90-5.00); Lymphocytes % (A) 10.3 %; MCH 26.4 pg (27.0-32.0); MCHC 28.7 g/dL (32.0-37.0); Mean Platelet Volume 9.7 fL (9.5-12.2); Monocytes # (A) 0.79 X 10*3/uL (0.20-1.00); Monocytes % (A) 9.6 %; Neutrophils # (A) 6.45 X 10*3/uL (1.80-7.70); Neutrophils % (A) 78.6 %; Platelet Count 283 X 10*3/uL (140-440); RBC 2.88 X 10*6/uL (4.10-5.20); RDW 14.2 % (11.5-14.5); WBC 8.22 X 10*3/uL (4.50-10.00)
[2020-11-08 11:20] LABS: African American GFR (CKD) 47.4 (60.0-200.0); Anion Gap 5.2 mmol/L (4.00-12.00); BUN/Creat Ratio 22.5 Ratio (12.00-20.00); Calcium 8.2 mg/dL (8.7-10.3); Carbon Dioxide 24.8 mmol/L (21.6-31.8); Non-African American GFR(CKD) 40.9 (60.0-200.0); Potassium 4.6 mmol/L (3.5-5.5)
--- NOTE | 2020-11-08 13:47 | P.PN ---
Subjective Principal diagnosis: Right hip comminuted fracture Fall/blunt head trauma Atrial fibrillation with systemic anticoagulation 85-year-old very pleasant female presented to the emergency department last night after a fall from standing at home. The patient states that she was with her family and they were having dinner and a couple of drinks she stood up and seemed to trip and fell onto her right hip. She complained of immediate right hip pain and inability to ambulate and was taken to the hospital via EMS. She states pain in her right hip was no radiation. She denies any loss of consciousness but states that she did hit her head when she fell. She is on eloquence for what she states she has been told his A. fib. She has been rate controlled however. She has a history of renal vasculitis as well as high blood pressure and hypercholesterol area and she denies any other lung or heart problems. She is otherwise very active in her day-to-day livings.. She does get help from her 3 daughters and occasionally uses a cane or a walker to get around. AP pelvis as well as AP lateral right hip and right femur obtained and reviewed in the emergency department and this demonstrates a peritrochanteric fracture of the right hip which is flexed and externally rotated and displaced. There is no apparent femoral neck fracture there is no fracture distal to this the remaining of the femur appears intact. AP pelvis demonstrates post surgical changes of the left hip status post IM nailing of the left hip several years back. No evidence of hardware failure or loosening. 11/07/2020 Patient is seen and evaluated in room at bedside; reports well-controlled pain; hasn't been out of bed.; No specific complaints Vital signs are reviewed and stable with a temperature 90.8, pulse 82, respiration 18 and blood pressure of 189/96 Patient is status post right hip intramedullary nail placement, POD #1; orthopedic surgery on board and recommending PT/OT evaluation; aggressive ambulation protocol; out of bed with all meals and in November 4-5 times daily; patient will continue to have SCDs; cleared for pharmacological anticoagulation with heparin Patient remains on IV fluids in form of normal saline at 85 mL an hour postoperatively; BUN/creatinine slightly elevated upon admission; we will monitor renal function and electrolytes and make adjustments to IV fluids accordingly Blood pressure remains elevated; patient is currently on metoprolol 25 mg twice a day; we will escalate antihypertensive; verapamil 180 mg daily has been added 11/08/2020 Patient's creatinine is around 1. which appears to be baseline for this patient. Patient is otherwise clinically doing well. Pain is well controlled at this time. Constitutional: Denied any fatigue denied any fever. Cardio vascular: denied any chest pain, palpitations Gastrointestinal denied any nausea vomiting Pulmonary: Denied any shortness of breath cough Neurologic denied any new focal deficits All inpatient medications were reviewed and appropriate changes in these medications as dictated in the interval history and assessment and plan. Objective - Vital Signs Vital signs: Vital Signs Temp 98.7 F 11/08/20 07:31 Pulse 80 11/08/20 07:31 Resp 18 11/08/20 07:31 BP 145/74 11/08/20 07:31 Pulse Ox 95 11/08/20 07:31 Intake & Output 11/07/20 11/08/20 11/08/20 18:59 06:59 18:59 Output Total 450 200 Balance -450 -200 Output: Urine 450 200 Other: Voiding Method Indwelling Catheter Indwelling Catheter Indwelling Catheter # Bowel Movements 0 1 - Exam PHYSICAL EXAMINATION: GENERAL: The patient is alert and oriented x3, not in any acute distress. Well developed, well nourished. HEENT: Pupils are round and equally reacting to light. EOMI. No scleral icterus. No conjunctival pallor. Normocephalic, atraumatic. No pharyngeal erythema. No thyromegaly. CARDIOVASCULAR: S1 and S2 present. No murmurs, rubs, or gallops. PULMONARY: Chest is clear to auscultation, no wheezing or crackles. ABDOMEN: Soft, nontender, nondistended, normoactive bowel sounds. No palpable organomegaly. MUSCULOSKELETAL: No joint swelling or deformity. EXTREMITIES: No cyanosis, clubbing, or pedal edema. NEUROLOGICAL: Gross neurological examination did not reveal any focal deficits. SKIN: No rashes. - Labs CBC & Chem 7: 11/08/20 06:54 11/08/20 06:54 Labs: Abnormal Lab Results - Last 24 Hours (Table) 11/07/20 11/07/20 11/08/20 Range/Units 15:22 15:22 06:54 RBC 2.91 L 2.88 L (3.80-5.40) m/uL Hgb 8.1 L D 7.6 L (11.4-16.0) gm/dL Hct 25.5 L 26.5 L (34.0-46.0) % MCH 26.4 L (27.0-32.0) pg MCHC 28.7 L (32.0-37.0) g/dL Lymphocytes # 0.85 L (0.90-5.00) X 10*3/uL Sodium 135 L (137-145) mmol/L BUN 23 H (7-17) mg/dL Creatinine 1.23 H (0.52-1.04) mg/dL Est GFR (CKD-EPI)AfAm (60.0-200.0) Est GFR (CKD-EPI)NonAf (60.0-200.0) BUN/Creatinine Ratio (12.00-20.00) Ratio Calcium (8.7-10.3) mg/dL 11/08/20 Range/Units 06:54 RBC (3.80-5.40) m/uL Hgb (11.4-16.0) gm/dL Hct (34.0-46.0) % MCH (27.0-32.0) pg MCHC (32.0-37.0) g/dL Lymphocytes # (0.90-5.00) X 10*3/uL Sodium (137-145) mmol/L BUN (7-17) mg/dL Creatinine (0.52-1.04) mg/dL Est GFR (CKD-EPI)AfAm 47.4 L (60.0-200.0) Est GFR (CKD-EPI)NonAf 40.9 L (60.0-200.0) BUN/Creatinine Ratio 22.50 H (12.00-20.00) Ratio Calcium 8.2 L (8.7-10.3) mg/dL Assessment and Plan Plan: 1. Right hip comminuted fracture He is well-controlled patient probably will be discharged tomorrow 2. Fall/blunt head trauma; patient is on anticoagulation; CT of head done in ED was negative for intracranial changes 3. Atrial fibrillation; remains rate controlled on verapamil and metoprolol and systemic anticoagulation 1. Hypertension; verapamil 180 mg daily; metoprolol 25 mg twice a day. Blood pressure is fairly well controlled at this time, IV fluids will be discontinued 5. Hyperlipidemia; Lipitor 20 mg by mouth daily at bedtime 6. Hypothyroidism; levothyroxin 100 MCG daily 7. 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
--- NOTE | 2020-11-08 13:50 | CDI ---
Paroxysmal a fib Documentation Clarification Form Date: 11/08/2020 01:39:50 PM From: Selena Bertrand [facility], CCDS Admit Date: 11/05/2020 09:42:00 PM Patient Name: Selena Horton Visit Number: [id number] Discharge Date: ATTENTION: The Clinical Documentation Specialists (CDI) and [facility] Coding Staff appreciate your assistance in clarifying documentation. Please respond to the clarification below the line at the bottom and electronically sign. The CDI & [facility] Coding staff will review the response and follow-up if needed. Please note: Queries are made part of the Legal Health Record. If you have any questions, please contact the author of this message via ITS. Dr. Lucas Lu: Atrial Fibrillation is documented in the 11/05 ED note, the 11/06 History & Physical, the 11/06 Medical Consult and subsequent Progress Notes without further specificity. Additional clarification regarding the type of atrial fibrillation is requested. History/Risk Factors per the 11/06 Medical Consult: Atrial fibrillation on Coumadin, GERD, Hyperlipidemia, Hypertension, Osteoarthritis, Pneumonia & Renal Vasculitis, Bipolar. Former smoker. Clinical Indicators: Presented to the ED on 11/05 via EMS after a fall at home with injury to right hip & blunt head injury. Clinical Impression: Fall, Right Hip Fracture 11/05 VS: T 97.6, P 92, R 20, BP 124/97, PO 100 RA - 90 RA 11/06 VS: P 105 - 63 - 105 - 99 11/07 VS: P 101 - 96 11/05 LAB: Hgb 10.6, CO2 18, BUN 25, Cr 1.39 11/05 UA: cloudy, 1+ Protein, Trace Blood, Large Esterase, RBC 35, WBC 47. 11/05 Toxicology: Opiates, Tricyclic Antidepressants. 11/05 EKG: R 93 sinus rhythm with 1st degree AV block Treatment 11/05: IV Morphine 4 mg x2, po Tylenol. 11/05: IV Zofran 4 mg q6H, IV Cefazolin 100 mls/hr x1. To OR 11/06 for IM nailing fixation of right hip. 11/07: Heparin sq. Home meds: Verapamil, Lopressor, Lexapro, Lipitor, Eliquis. Please clarify the type of atrial fibrillation, if known: [ ] Chronic [ ] Permanent [ ] Paroxysmal [ ] Persistent [ ] Other, please specify [ ] Unable to determine (Template Last Revised: October 2020) MTDD
[2020-11-08] MEDS: ATORVASTATIN 20 MG TAB PO SCH (21:54)
[2020-11-08] MEDS: LEVOTHYROXINE 100 MCG TAB PO SCH (21:54)
[2020-11-08] MEDS: LATANOPROST 0.005% OPHTH DROPS 2.5 ML BTL BOTH EYES SCH (21:55)
[2020-11-09] MEDS: ONDANSETRON 4 MG/2 ML VIAL IVP PRN (08:45)
[2020-11-09] MEDS: HEPARIN SODIUM,PORCINE/PF 5,000 UNIT/0.5 ML SYRINGE SQ SCH ×2 (10:09→21:35)
[2020-11-09] MEDS: ESCITALOPRAM 20 MG TAB PO SCH (10:10)
[2020-11-09] MEDS: VERAPAMIL SR 180 MG TABLET.ER PO SCH (10:10)
[2020-11-09] MEDS: METOPROLOL TARTRATE 25 MG TAB PO SCH ×2 (10:10→21:34)
[2020-11-09] MEDS: DORZOLAMIDE-TIMOLOL 2.23%/0.68 10ML BTL BOTH EYES SCH ×2 (10:12→21:35)
--- NOTE | 2020-11-09 13:17 | P.PN ---
Subjective Progress Note Date: 11/09/20 Principal diagnosis: Right hip intertrochanteric fracture status post fall Patient was seen this morning. She was sitting in chair with breakfast. She says she is feeling nauseous and she had been up to the bathroom early this morning and felt like she had throw up. However, she has not vomited. She says her hip pain is doing well and she has no new complaints. She is able to wiggle her toes major legs. She says she has been passing gas. She says she has not been doing a lot with physical therapy. Patient denies loss of bowel/bladder control. Patient denies any fever, chest pain, shortness of breath, chills, change in vision. Objective - Vital Signs Vital signs: Vital Signs Temp 98.6 F 11/09/20 12:43 Pulse 73 11/09/20 12:43 Resp 18 11/09/20 12:43 BP 147/69 11/09/20 12:43 Pulse Ox 98 11/09/20 12:43 Intake & Output 11/08/20 11/09/20 11/09/20 18:59 06:59 18:59 Intake Total 0 Output Total 200 500 Balance -200 -500 0 Intake: Blood Product 0 Rc Irr As1 Unit 0 [id number] Output: Urine 200 500 Other: Voiding Method Indwelling Catheter Toilet - Exam Incision is clean, dry, and intact. The silver foam tape is in good condition. There is minimal soft tissue swelling and ecchymosis surrounding the medial and lateral aspects of the incision. Calf is soft, no tenderness with palpation. Plantar flexion, dorsiflexion, EHL, FHL are intact. Sensory exam to light touch throughout the extremity is intact, dorsal pedis pulses 2+. - Labs CBC & Chem 7: 11/08/20 06:54 11/08/20 06:54 Labs: Abnormal Lab Results - Last 24 Hours (Table) 11/09/20 Range/Units 10:07 Crossmatch See Detail Assessment and Plan Assessment: Postoperative day #3 - right hip fracture status post fall; right hip intramedullary nail 1. Right hip intertrochanteric fracture 2. Blunt head trauma on eliquis, CT negative for any intracranial changes 3. History of A. fib 4. History of renal vasculitis, hypertension, hyperlipidemia Plan: 1. Right hip fracture - postoperative day #3 status post right hip intramedullary nail 2. Pain management - stable at this time. Continue oral pain meds. 3. PT/OT - up bed 4-5 times daily. Weightbearing as tolerated; use walker for assistance. 4. Appreciate medical management 5. GI prophylaxis/DVT prophylaxis - continue senna; continue heparin. 6. Low hemoglobin - 1 unit packed red blood cells ordered 7. Encourage incentive spirometer use 8. Discharge planning - planning on sending patient home with health services tomorrow. Patient does say she would like to go home and has 3 daughters that are very willing to assist her in her recovery. Time with Patient: Less than 30
--- NOTE | 2020-11-09 14:18 | P.PN ---
Subjective Progress Note Date: 11/09/20 Right hip comminuted fracture Fall/blunt head trauma History of paroxysmal Atrial fibrillation 85-year-old very pleasant female presented to the emergency department last night after a fall from standing at home. The patient states that she was with her family and they were having dinner and a couple of drinks she stood up and seemed to trip and fell onto her right hip. She complained of immediate right hip pain and inability to ambulate and was taken to the hospital via EMS. She states pain in her right hip was no radiation. She denies any loss of consciousness but states that she did hit her head when she fell. She is on eloquence for what she states she has been told his A. fib. She has been rate controlled however. She has a history of renal vasculitis as well as high blood pressure and hypercholesterol area and she denies any other lung or heart problems. She is otherwise very active in her day-to-day livings.. She does get help from her 3 daughters and occasionally uses a cane or a walker to get around. AP pelvis as well as AP lateral right hip and right femur obtained and reviewed in the emergency department and this demonstrates a peritrochanteric fracture of the right hip which is flexed and externally rotated and displaced. There is no apparent femoral neck fracture there is no fracture distal to this the remaining of the femur appears intact. AP pelvis demonstrates post surgical changes of the left hip status post IM nailing of the left hip several years back. No evidence of hardware failure or loosening. 11/07/2020 Patient is seen and evaluated in room at bedside; reports well-controlled pain; hasn't been out of bed.; No specific complaints Vital signs are reviewed and stable with a temperature 90.8, pulse 82, respiration 18 and blood pressure of 189/96 Patient is status post right hip intramedullary nail placement, POD #1; orthopedic surgery on board and recommending PT/OT evaluation; aggressive ambulation protocol; out of bed with all meals and in November 4-5 times daily; patient will continue to have SCDs; cleared for pharmacological anticoagulation with heparin Patient remains on IV fluids in form of normal saline at 85 mL an hour pos toperatively; BUN/creatinine slightly elevated upon admission; we will monitor renal function and electrolytes and make adjustments to IV fluids accordingly Blood pressure remains elevated; patient is currently on metoprolol 25 mg twice a day; we will escalate antihypertensive; verapamil 180 mg daily has been added 11/08/2020 Patient's creatinine is around 1. which appears to be baseline for this patient. Patient is otherwise clinically doing well. Pain is well controlled at this time. 11/09/2020 Patient is seen and evaluated in follow-up currently sleeping although easily arousable sitting up in the chair. Patient pain being managed per primary service. Patient did have some nausea although states is relieved at this time. PT/OT following. Hemoglobin yesterday was 7.6 and awaiting to receive a unit of PRBC and will repeat a.m. labs. Right surgical hip dressing is dry and intact. No new labs from today. Patient states discharge planning is to go home with home care and she has multiple family members that will be in the home to help her. Constitutional: Denied any fatigue denied any fever. Cardio vascular: denied any chest pain, palpitations Gastrointestinal : Reports some nausea this morning, passing gas, no bowel movements yet Pulmonary: Denied any shortness of breath cough Neurologic denied any new focal deficits All inpatient medications were reviewed and appropriate changes in these medications as dictated in the interval history and assessment and plan. Objective - Vital Signs Vital signs: Vital Signs Temp 98.4 F 11/09/20 07:59 Pulse 102 H 11/09/20 07:59 Resp 15 11/09/20 07:59 BP 154/75 11/09/20 07:59 Pulse Ox 96 11/09/20 08:32 Intake & Output 11/08/20 11/09/20 11/09/20 18:59 06:59 18:59 Output Total 200 500 Balance -200 -500 Output: Urine 200 500 Other: Voiding Method Indwelling Catheter Toilet - Exam GENERAL: The patient is alert and oriented x3, not in any acute distress. Well developed, well nourished. HEENT: Pupils are round and equally reacting to light. EOMI. No scleral icterus. No conjunctival pallor. Normocephalic, atraumatic. No pharyngeal erythema. No thyromegaly. CARDIOVASCULAR: S1 and S2 present. No murmurs, rubs, or gallops. PULMONARY: Chest is clear to auscultation, no wheezing or crackles. ABDOMEN: Soft, nontender, nondistended, normoactive bowel sounds. No palpable organomegaly. MUSCULOSKELETAL: No joint swelling or deformity. EXTREMITIES: No cyanosis, clubbing, or pedal edema. Right hip surgical dressing is dry and intact NEUROLOGICAL: Gross neurological examination did not reveal any focal deficits. SKIN: No rashes. - Labs CBC & Chem 7: 11/08/20 06:54 11/08/20 06:54 Labs: Abnormal Lab Results - Last 24 Hours (Table) 11/09/20 Range/Units 10:07 Crossmatch See Detail Assessment and Plan Assessment: Right hip comminuted fracture secondary to a fall status post right hip intramedullary nail fixation Fall/blunt head trauma, CT of the brain was negative for intracranial changes History of Paroxysmal atrial fibrillation, currently rate controlled and on Eliquis Hypertension continue with current home medications Hyperlipidemia, continue Lipitor Hypothyroidism, continue with levothyroxine 100 g daily Chronic kidney disease stage III probably secondary to hypertensive nephrosclerosis DVT prophylaxis Full code Plan: Patient's hemoglobin was found to be slightly low at 7.6 and waiting to receive a unit of PRBC per primary service. PT/OT following. Patient had some nausea this morning and will continue Zofran as needed. Patient is currently on heparin subcutaneous for DVT prophylaxis and will discuss with orthopedics about resuming Eliquis for discharge. Instructed the patient to continue using incentive spirometer at least 10 times every hour while awake. Will repeat a.m. labs. Will continue to follow along with orthopedics during hospitalization. Thank you for this consultation.
[2020-11-09] MEDS: KETOROLAC 15 MG/ML 1 ML VIAL IVP PRN ×2 (15:43→21:36)
[2020-11-09] MEDS: LATANOPROST 0.005% OPHTH DROPS 2.5 ML BTL BOTH EYES SCH (21:35)
[2020-11-09] MEDS: ATORVASTATIN 20 MG TAB PO SCH (21:35)
[2020-11-09] MEDS: LEVOTHYROXINE 100 MCG TAB PO SCH (21:35)
[2020-11-10 06:37] LABS: Basophils % (A) 0 %; Eosinophils # (A) 0.1 k/uL (0-0.7); Eosinophils % (A) 1 %; HCT 24.6 % (34.0-46.0); HGB 8.1 gm/dL (11.4-16.0); Hypochromasia Slight; Lymphocytes # (A) 0.7 k/uL (1.0-4.8); Lymphocytes % (A) 7 %; MCH 28.8 pg (25.0-35.0); MCHC 32.9 g/dL (31.0-37.0); MCV 87.4 fL (80.0-100.0); Mean Platelet Volume 6.9; Monocytes # (A) 0.6 k/uL (0-1.0); Monocytes % (A) 6 %; Neutrophils # (A) 8.4 k/uL (1.3-7.7); Neutrophils % (A) 84 %; Platelet Count 244 k/uL (150-450); Poikilocytosis Slight; RBC 2.81 m/uL (3.80-5.40); RDW 14.7 % (11.5-15.5); WBC 9.9 k/uL (3.8-10.6)
[2020-11-10 06:56] LABS: African American GFR (CKD) 51 (>60 ml/min/1.73 sqM); Anion Gap 7 mmol/L; Blood Urea Nitrogen 50 mg/dL (7-17); Calcium 8.4 mg/dL (8.4-10.2); Carbon Dioxide 21 mmol/L (22-30); Chloride 111 mmol/L (98-107); Glucose 105 mg/dL (74-99); Non-African American GFR(CKD) 45 (>60 ml/min/1.73 sqM); Potassium 3.8 mmol/L (3.5-5.1); Sodium 139 mmol/L (137-145)
--- NOTE | 2020-11-10 08:32 | P.PN ---
Subjective Progress Note Date: 11/10/20 Principal diagnosis: Right hip intertrochanteric fracture status post fall Patient was seen this morning. She was sitting up in bed. She says she's been having diarrhea since yesterday. She does say she has been eating meals. When I am in room she says she has to go. She was able to get up out of bed with minimal assistance using walker and ambulates with walker to the bathroom. She says her hip pain is doing well and she has no new complaints. She is able to wiggle her toes and lift legs. She says she has been passing gas. She says she has not been doing a lot with physical therapy. Patient denies loss of bowel/bladder control. Patient denies any fever, chest pain, shortness of breath, chills, change in vision. Objective - Vital Signs Vital signs: Vital Signs Temp 98.1 F 11/10/20 01:01 Pulse 79 11/10/20 01:01 Resp 18 11/09/20 16:01 BP 175/75 11/10/20 01:01 Pulse Ox 97 11/10/20 01:01 Intake & Output 11/09/20 11/10/20 11/10/20 18:59 06:59 18:59 Intake Total 620 Balance 620 Intake: Blood Product 620 Rc Irr As1 Unit 310 [id number] Other: Voiding Method Toilet # Voids 2 3 # Bowel Movements 1 4 - Labs CBC & Chem 7: 11/10/20 05:23 11/10/20 05:23 Labs: Abnormal Lab Results - Last 24 Hours (Table) 11/09/20 11/10/20 11/10/20 Range/Units 10:07 05:23 05:23 RBC 2.81 L (3.80-5.40) m/uL Hgb 8.1 L (11.4-16.0) gm/dL Hct 24.6 L (34.0-46.0) % Neutrophils # 8.4 H (1.3-7.7) k/uL Lymphocytes # 0.7 L (1.0-4.8) k/uL Chloride 111 H (98-107) mmol/L Carbon Dioxide 21 L (22-30) mmol/L BUN 50 H (7-17) mg/dL Creatinine 1.12 H (0.52-1.04) mg/dL Glucose 105 H (74-99) mg/dL Crossmatch See Detail Assessment and Plan Assessment: Postoperative day #3 - right hip fracture status post fall; right hip intramedul darryl nail 1. Right hip intertrochanteric fracture 2. Blunt head trauma on eliquis, CT negative for any intracranial changes 3. History of A. fib 4. History of renal vasculitis, hypertension, hyperlipidemia Plan: 1. Right hip fracture - postoperative day #4 status post right hip intramedullary nail 2. Pain management - stable at this time. Continue oral pain meds. 3. PT/OT - up bed 4-5 times daily. Weightbearing as tolerated; use walker for assistance. 4. Appreciate medical management 5. GI prophylaxis/DVT prophylaxis - continue senna; continue heparin. 6. Low hemoglobin - 1 unit packed red blood cells ordered yesterday and given. Patient hemoglobin of tape 8.1 today 7. Encourage incentive spirometer use 8. Discharge planning - planning on sending patient home with health services today, 11/10/2020. Patient does say she would like to go home and has 3 daughters that are very willing to assist her in her recovery. Time with Patient: Less than 30
[2020-11-10] MEDS: METOPROLOL TARTRATE 25 MG TAB PO SCH (08:35)
[2020-11-10] MEDS: HEPARIN SODIUM,PORCINE/PF 5,000 UNIT/0.5 ML SYRINGE SQ SCH (08:36)
[2020-11-10] MEDS: DORZOLAMIDE-TIMOLOL 2.23%/0.68 10ML BTL BOTH EYES SCH (08:36)
[2020-11-10] MEDS: ESCITALOPRAM 20 MG TAB PO SCH (08:36)
[2020-11-10] MEDS: VERAPAMIL SR 180 MG TABLET.ER PO SCH (08:37)
[2020-11-10] MEDS ORDERED: LOPERAMIDE 2 MG CAP PO PRN (08:52)
--- NOTE | 2020-11-10 11:23 | P.DS ---
Providers Date of admission: 11/05/20 21:42 Expected date of discharge: 11/10/20 Attending physician: Scott Estrella DO Consults: 11/05/20 21:42 Consult Physician Routine Consulting Provider: Pepe Miranda Consult Reason/Comments: medicine consult Do you want consulting provider notified?: Yes Primary care physician: Aryan Mcneil [facility] Hospital Course: Date of admission: 11/05/2020 Date of discharge: 11/10/2020 Admission diagnosis: Right hip intertrochanteric fracture Discharge diagnosis: Same Attending physician: Dr. Estrella Surgical procedures: Right hip intramedullary nail Brief history: Patient is a a 85-year-old female with a history of right hip intertrochanteric fracture status post fall. At this point patient has failed conservative treatment measures and has opted to proceed with a elective right hip intramedullary nail fixation. Hospital course: Details of patient's surgery can be found in operative report. Patient tolerated the procedure well and was subsequently transported to orthopedic floor. Patient's orthopeidc and medical care was provided daily. Patient had daily laboratory tests performed for evaluation of overall blood counts. Patient had daily physical therapy to include strengthening range of motion as well as education with walker ambulation. Patient was treated with heparin for their postoperative DVT prophylaxis during their inpatient stay. Patient was noted to have a relatively uneventful postoperative course. Patient reported satisfactory pain control with oral pain medications by postoperative day 4. Patient showed satisfactory progress with physical therapy. Patient moved steadily through the program and had no difficulty meeting the goals by postoperative day 4. Given patient's otherwise satisfactory course and having met physical therapy goals, plan is to discharge patient home on postoperative day 4. Discharge condition/disposition: Patient will be discharged home in stable condition. Discharge medications: Instructions are given on resumption of patient's normal daily medications per primary care recommendation, in addition patient will be prescribed Tylenol with codeine; resume home Eliquis 2.5 ,g Discharge instructions: 1. Wound care and infection precautions, keep incision dry and covered while showering, no lotions, creams, moisturizers. No soaking, tubs, pools, hottubs. Do not scrub over the incision. 2. Weight-bear as tolerated with walker / cane until follow-up. 3. Ice and elevate when necessary. Do not exceed 20 minutes per hour with ice pack. 4. Utilize compression sleeve until seen at first follow up appointment. 5. Visiting nursing care. 6. Home physical therapy. 7. Pain meds and anticoagulants per prescription. 8. Pain medication has potential to cause constipation. Increase oral fluid and fiber intake. Contact primary care provider if you have not had a bowel movement within 48 hours after discharge 9. No anti-inflammatory medication until discussed at first post operative visit, this including Motrin, Aleve, Mobic, Diclofenac. 10. Follow up in office at 2 weeks postop with Scott Estrella DO. 11. Follow up with your primary care doctor 7-10 days after discharge. 12. Contact [facility] with any questions, . Assessment: Right hip intertrochanteric fracture status post fall Patient Condition at Discharge: Good Plan - Discharge Summary Discharge Rx Participant: No New Discharge Prescriptions: New Acetaminophen-Codeine 300-30mg [Tylenol w/codeine #3] 1 - 2 tab PO Q4H PRN #40 tablet PRN Reason: Pain Ondansetron Odt [Zofran Odt] 4 mg PO Q8HR PRN #30 tab PRN Reason: Nausea No Action mycophenolate mofetiL [Cellcept] 750 mg PO BID Escitalopram [Lexapro] 20 mg PO DAILY Verapamil HCl [Verapamil ER] 180 mg PO DAILY Dorzolamide/Timolol/Pf [Dorzolamide-Timolol 2%-0.5%] 1 drop BOTH EYES BID Levothyroxine Sodium 100 mcg PO HS ALPRAZolam [Xanax] 0.25 mg PO BID PRN PRN Reason: Anxiety Latanoprost [Xalatan 0.005%] 1 drop BOTH EYES HS Apixaban [Eliquis] 2.5 mg PO BID Atorvastatin [Lipitor] 20 mg PO HS Metoprolol Tartrate [Lopressor] 25 mg PO BID Brimonidine Unknown Dose 1 drop BOTH EYES BID Discharge Medication List Escitalopram [Lexapro] 20 mg PO DAILY 09/24/15 [History] mycophenolate mofetiL [Cellcept] 750 mg PO BID 09/24/15 [History] Verapamil HCl [Verapamil ER] 180 mg PO DAILY 05/28/16 [History] Dorzolamide/Timolol/Pf [Dorzolamide-Timolol 2%-0.5%] 1 drop BOTH EYES BID 10/11/18 [History] Levothyroxine Sodium 100 mcg PO HS 10/11/18 [History] ALPRAZolam [Xanax] 0.25 mg PO BID PRN 10/30/18 [History] Apixaban [Eliquis] 2.5 mg PO BID 11/05/20 [History] Atorvastatin [Lipitor] 20 mg PO HS 11/05/20 [History] Brimonidine Unknown Dose 1 drop BOTH EYES BID 11/05/20 [History] Latanoprost [Xalatan 0.005%] 1 drop BOTH EYES HS 11/05/20 [History] Metoprolol Tartrate [Lopressor] 25 mg PO BID 11/05/20 [History] Acetaminophen-Codeine 300-30mg [Tylenol w/codeine #3] 1 - 2 tab PO Q4H PRN #40 tablet 11/09/20 [Rx] Ondansetron Odt [Zofran Odt] 4 mg PO Q8HR PRN #30 tab 11/09/20 [Rx] Follow up Appointment(s)/Referral(s): Aryan Tsang III, MD [Primary Care Provider] - 11/11/20 10:30 am [facility] [NON-STAFF] - (Please call [facility] if you have questions regarding your bedside commode. ) [facility], [NON-STAFF] - ([facility] will call to arrange your first home visit. ) Scott Estrella DO [Doctor of Osteopathic Medicine] - 2 Weeks Activity/Diet/Wound Care/Special Instructions: Orthopedic Discharge and Recovery Instructions Date of Surgery: 11/06/2020 Diagnosis: Right hip intertrochanteric fracture Procedure: Right hip intramedullary nail fixation Medications: See list Weight bearing status: Weightbearing as tolerated with assist All medication refills should be obtained through your primary care doctor or your clinic orthopedic surgeon. Please discuss prescription refills at your follow up appointment. Do not call the hospital for medication refills. Dressing: Unless directed otherwise by your surgeon, leave your dressing in place for a total of 3 days post operatively. Then you may remove your dressing and leave open to air. Keep the area clean and if not able to keep area clean, then cover with sterile gauze and tape. Showering: You may shower 3 days after your procedure allowing soap and water to run over incision. Do not scrub. Do not soak. Blot dry. Follow up: Please confirm a follow up appointment with your surgeon 2 weeks post operatively. Please make an appointment to follow up with your PCP in 1-2 weeks after surgery for evaluation Cast Care: If you have a cast please keep it clean, dry and intact. Do not put anything down inside the cast. Do no scratch inside the cast. Do not weight bear on the cast. Discharge Disposition: HOME WITH HOME HEALTH SERVICES
--- NOTE | 2020-11-10 11:36 | CDI ---
Documentation Clarification Form Date: 11/10/2020 11:23:28 AM From: Selena JeffBertrandKENTON, CCDS Admit Date: 11/05/2020 09:42:00 PM Patient Name: Selena Horton Visit Number: [id number] Discharge Date: ATTENTION: The Clinical Documentation Specialists (CDI) and [facility] Coding Staff appreciate your assistance in clarifying documentation. Please respond to the clarification below the line at the bottom and electronically sign. The CDI & [facility] Coding staff will review the response and follow-up if needed. Please note: Queries are made part of the Legal Health Record. If you have any questions, please contact the author of this message via ITS. Dr. Scott Estrella: Per the 11/10 Orthopedic Progress Note: Low hemoglobin - 1 unit packed red blood cells ordered yesterday and given. Patient's hemoglobin today 8.1. Please clarify if there is an additional diagnosis and/or clinical significance related to these lab values. History/Risk Factors per the 11/05 ED Note Patient's Past Medical History: Hypertension, CKD 3, Hyperlipidemia, A Fib on anticoagulants, GERD, Hypothyroid, Vasculitis, Shingles. Clinical indicators: Presented to the ED on 11/05 via EMS after a fall from standing, fell backwards & hit her head, complaining of right hip pain. ED Clinical Impression: Fall, Hip Fracture 11/06 Procedure: Intramedullary nail fixation of right hip. Hgb: 11/05: 10.6, 11/07: 8.0 - 8.1; 11/08: 7.6; 11/10: 8.1 Hct: 11/05: 34.6; 11/07: 27.0 - 25.5; 11/08: 26.5; 11/10: 24.6 Treatment 11/05: IV Morphine 4 mg x1, po Tylenol, IV Morphine 4 mg q4H/prn 11/06: IV Zofran, IV Cefazolin, IV Tranexamic Acid, IV Lactated Ringers, IV Dilaudid .5 mg x2, IV Labetalol 11/07: Heparin sq, IV Toradol 11/09 Transfusion: 1 unit PRBCs Is there an additional diagnosis and/or clinical significance related to the above lab result/information: [ ] Acute blood loss anemia [ ] Acute blood loss anemia and is a complication of the patient's procedure (IM nailing) [ ] Acute blood loss anemia and is not a complication of the patient's procedure (IM nailing) [ ] Acute on chronic blood loss anemia, please specify type of chronic anemia: [ ] Chronic blood loss anemia due to (Please specify condition): [ ] Anemia of chronic kidney disease [ ] Unable to determine [ ] Other, please specify (Template Last Revised: July 2020) Acute blood loss anemia is correlated to procedure IM nailing but is not complication and was expected secondary to the patient's fracture and having been on Eiliquis prior to surgery MTDD
[2020-11-10] MEDS: ACETAMINOPHEN TAB 325 MG TAB PO PRN (12:26)
--- NOTE | 2020-11-10 13:10 | P.PN ---
Subjective Progress Note Date: 11/10/20 Right hip comminuted fracture Fall/blunt head trauma History of paroxysmal Atrial fibrillation 85-year-old very pleasant female presented to the emergency department last night after a fall from standing at home. The patient states that she was with her family and they were having dinner and a couple of drinks she stood up and seemed to trip and fell onto her right hip. She complained of immediate right hip pain and inability to ambulate and was taken to the hospital via EMS. She states pain in her right hip was no radiation. She denies any loss of consciousness but states that she did hit her head when she fell. She is on eloquence for what she states she has been told his A. fib. She has been rate controlled however. She has a history of renal vasculitis as well as high blood pressure and hypercholesterol area and she denies any other lung or heart problems. She is otherwise very active in her day-to-day livings.. She does get help from her 3 daughters and occasionally uses a cane or a walker to get around. AP pelvis as well as AP lateral right hip and right femur obtained and reviewed in the emergency department and this demonstrates a peritrochanteric fracture of the right hip which is flexed and externally rotated and displaced. There is no apparent femoral neck fracture there is no fracture distal to this the remaining of the femur appears intact. AP pelvis demonstrates post surgical changes of the left hip status post IM nailing of the left hip several years back. No evidence of hardware failure or loosening. 11/07/2020 Patient is seen and evaluated in room at bedside; reports well-controlled pain; hasn't been out of bed.; No specific complaints Vital signs are reviewed and stable with a temperature 90.8, pulse 82, respiration 18 and blood pressure of 189/96 Patient is status post right hip intramedullary nail placement, POD #1; orthopedic surgery on board and recommending PT/OT evaluation; aggressive ambulation protocol; out of bed with all meals and in November 4-5 times daily; patient will continue to have SCDs; cleared for pharmacological anticoagulation with heparin Patient remains on IV fluids in form of normal saline at 85 mL an hour pos toperatively; BUN/creatinine slightly elevated upon admission; we will monitor renal function and electrolytes and make adjustments to IV fluids accordingly Blood pressure remains elevated; patient is currently on metoprolol 25 mg twice a day; we will escalate antihypertensive; verapamil 180 mg daily has been added 11/08/2020 Patient's creatinine is around 1. which appears to be baseline for this patient. Patient is otherwise clinically doing well. Pain is well controlled at this time. 11/09/2020 Patient is seen and evaluated in follow-up currently sleeping although easily arousable sitting up in the chair. Patient pain being managed per primary service. Patient did have some nausea although states is relieved at this time. PT/OT following. Hemoglobin yesterday was 7.6 and awaiting to receive a unit of PRBC and will repeat a.m. labs. Right surgical hip dressing is dry and intact. No new labs from today. Patient states discharge planning is to go home with home care and she has multiple family members that will be in the home to help her. 11/10/2020 Patient is seen in follow-up this morning states she has had multiple loose stools and feels she is not agreeing with the diet although denies any nausea or vomiting. Stool sample was sent for C. diff which was negative and will start the patient on Imodium as needed for loose stools. Patient did have a unit of PRBCs yesterday and hemoglobin today is 8.1 prescription provided for outpatient close monitoring and recommending repeat testing in a few days to monitor hemoglobin. She also has an appointment with her primary care provider tomorrow and suggested making that appointment for follow-up. Patient is going home with home care and family members at the home will help her. No bleeding noted in the stool per staff. Primary service resuming eliquis on discharge and also instructing the patient to follow-up with her silk hanger outpatient. Constitutional: Denied any fatigue denied any fever. Cardio vascular: denied any chest pain, palpitations Gastrointestinal : Reports some loose stools, denies nausea or vomiting today Pulmonary: Denied any shortness of breath cough Neurologic denied any new focal deficits All inpatient medications were reviewed and appropriate changes in these medications as dictated in the interval history and assessment and plan. Objective - Vital Signs Vital signs: Vital Signs Temp 97.8 F 11/10/20 08:00 Pulse 102 H 11/10/20 08:00 Resp 16 11/10/20 08:00 BP 171/86 11/10/20 08:00 Pulse Ox 99 11/10/20 08:00 Intake & Output 11/09/20 11/10/20 11/10/20 18:59 06:59 18:59 Intake Total 620 Balance 620 Intake: Blood Product 620 Rc Irr As1 Unit 310 [id number] Other: Voiding Method Toilet # Voids 2 3 # Bowel Movements 1 4 - Exam GENERAL: The patient is alert and oriented x3, not in any acute distress. Well developed, well nourished. HEENT: Pupils are round and equally reacting to light. EOMI. No scleral icterus. No conjunctival pallor. Normocephalic, atraumatic. No pharyngeal erythema. No thyromegaly. CARDIOVASCULAR: S1 and S2 present. No murmurs, rubs, or gallops. PULMONARY: Chest is clear to auscultation, no wheezing or crackles. ABDOMEN: Soft, nontender, nondistended, normoactive bowel sounds. No palpable organomegaly. MUSCULOSKELETAL: No joint swelling or deformity. EXTREMITIES: No cyanosis, clubbing, or pedal edema. Right hip surgical dressing is dry and intact NEUROLOGICAL: Gross neurological examination did not reveal any focal deficits. SKIN: No rashes. - Labs CBC & Chem 7: 11/10/20 05:23 11/10/20 05:23 Labs: Abnormal Lab Results - Last 24 Hours (Table) 11/09/20 11/10/20 11/10/20 Range/Units 10:07 05:23 05:23 RBC 2.81 L (3.80-5.40) m/uL Hgb 8.1 L (11.4-16.0) gm/dL Hct 24.6 L (34.0-46.0) % Neutrophils # 8.4 H (1.3-7.7) k/uL Lymphocytes # 0.7 L (1.0-4.8) k/uL Chloride 111 H (98-107) mmol/L Carbon Dioxide 21 L (22-30) mmol/L BUN 50 H (7-17) mg/dL Creatinine 1.12 H (0.52-1.04) mg/dL Glucose 105 H (74-99) mg/dL Crossmatch See Detail Assessment and Plan Assessment: Right hip comminuted fracture secondary to a fall status post right hip intrame dullary nail fixation Fall/blunt head trauma, CT of the brain was negative for intracranial changes Acute blood loss anemia possibly secondary to an expected surgery outcome: Patient received a unit of PRBCs yesterday and hemoglobin today is 8.1 with no active bleeding noted History of Paroxysmal atrial fibrillation, currently rate controlled and on Eliquis Hypertension continue with current home medications Hyperlipidemia, continue Lipitor Hypothyroidism, continue with levothyroxine 100 g daily Chronic kidney disease stage III 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 No reports of nausea or vomiting today and reports a few episodes of loose stool since last night and also stating she is not agreeing with the food here. C. diff testing was negative this morning. Will give Imodium as needed. Patient was on heparin subcutaneous for DVT prophylaxis and will resume Eliquis for discharge. Patient follows with Dr. Tafoya in cardiology in the outpatient setting in instructed to follow-up in 1-2 weeks. Instructed the patient to continue using incentive spirometer at least 10 times every hour while awake. Creatinine slightly improving and provided prescriptions and recommending repeat labs in a few days to monitor kidney functions along with hemoglobin. Patient does have a scheduled outpatient appointment tomorrow with her primary care provider Dr. Tsang in instructed the patient to keep the appointment. Will continue to follow along with orthopedics during hospitalization. Patient is scheduled to be discharged today from primary service. Will continue with home care in the outpatient setting. Thank you for this consultation.
[2020-11-10 15:31] VITALS: BP 161/66; PULSE 72; RESP 14; TEMP 97.6
== END 2020-11-10 16:10 | disposition home health service (06) | DRG 481 ==
LOC: EC 19:57 → 4SSUR 21:42
PROVIDERS: ADMIT Orthopaedic Surgery; ATTEND Orthopaedic Surgery
PROC: 0QS636Z Reposition Right Upper Femur with Intramedullary Internal Fixation Device, Percutaneous Approach (ICD-10-PCS; principal; 2020-11-06 09:30)
PROC: 30230N1 Transfusion of Nonautologous Red Blood Cells into Peripheral Vein, Open Approach (ICD-10-PCS; 2020-11-09)
DX: S72.141A Displaced intertrochanteric fracture of right femur, initial encounter for closed fracture (principal); D62 Acute posthemorrhagic anemia; S09.90XA Unspecified injury of head, initial encounter; I48.0 Paroxysmal atrial fibrillation; N18.30 Chronic kidney disease, stage 3 unspecified; I77.89 Other specified disorders of arteries and arterioles; I12.9 Hypertensive chronic kidney disease with stage 1 through stage 4 chronic kidney disease, or unspecified chronic kidney disease; Z20.822 Contact with and (suspected) exposure to COVID-19; S00.03XA Contusion of scalp, initial encounter; E78.00 Pure hypercholesterolemia, unspecified; E03.9 Hypothyroidism, unspecified; E78.5 Hyperlipidemia, unspecified; K21.9 Gastro-esophageal reflux disease without esophagitis; M19.90 Unspecified osteoarthritis, unspecified site; R19.7 Diarrhea, unspecified; Z79.01 Long term (current) use of anticoagulants; Z79.890 Hormone replacement therapy; Z79.899 Other long term (current) drug therapy; Z87.01 Personal history of pneumonia (recurrent); Z87.891 Personal history of nicotine dependence; Z87.81 Personal history of (healed) traumatic fracture; Z86.19 Personal history of other infectious and parasitic diseases; Z90.49 Acquired absence of other specified parts of digestive tract; Z87.19 Personal history of other diseases of the digestive system; Z87.42 Personal history of other diseases of the female genital tract; Z90.710 Acquired absence of both cervix and uterus; Z98.890 Other specified postprocedural states; W01.0XXA Fall on same level from slipping, tripping and stumbling without subsequent striking against object, initial encounter; Y92.009 Unspecified place in unspecified non-institutional (private) residence as the place of occurrence of the external cause; Z82.49 Family history of ischemic heart disease and other diseases of the circulatory system; Z82.3 Family history of stroke
CPT/HCPCS: 36415; 70450; 71045; 72125; 72170; 73501; 73502; 80048; 80053; 80306; 80320; 81001; 84484; 85025; 85610; 85730; 86850; 86900; 86901; 86920; 87324; 87635; 93005; 94760; 96360; 99285

== ENCOUNTER → 2020-11-12 | Outpatient (CLI) | payer MEDICARE, BC | END | disposition home or self-care (01) | LOC: LABWHC1 13:56 | PROVIDERS: ATTEND Nurse Practitioner Family | DX: Z53.9 Procedure and treatment not carried out, unspecified reason (principal) ==

== ENCOUNTER 2020-11-24 10:07 | Emergency (ER) | payer MEDICARE, BC ==
[2020-11-24 10:16] VITALS: BP 141/74; PULSE 89; RESP 18; TEMP 97.8
--- NOTE | 2020-11-24 10:50 | XR ---
EXAMINATION TYPE: XR Hip RT and AP Pelvis DATE OF EXAM: 11/24/2020 COMPARISON: Pelvic x-ray November 05, 2020. Right hip x-ray November 06, 2020 HISTORY: Pelvic and right hip pain. Recent right hip surgery. Possible dislocation. TECHNIQUE: A single AP view of the pelvis is obtained. Two views of the right hip are obtained. FINDINGS: There is no acute fracture/dislocation evident in the pelvis. The sacroiliac joints redem onstrate some narrowing bilaterally. Pubic symphysis remains intact. Coils overlie the lower pelvis f rom prior hernia repair surgery. There is partial visualization of metallic hardware left proximal fe mur from prior surgical fixation. Large ossific projection redemonstrated superiorly to the level of the left greater trochanter. Two views of right hip redemonstrate fixation hardware with 2 femoral neck fixating screws along with intramedullary jaylon and smaller distal horizontal transverse fixating screw through comminuted intert rochanteric fracture right proximal femur. Small fracture fragment involving the lesser trochanter r edemonstrated, size is stable. Adjacent vertical skin catracho redemonstrated. Cynx-op-dqpidikc axial joint space loss right hip redemonstrated without dislocation. IMPRESSION: As above. No new fracture or dislocation.
--- NOTE | 2020-11-24 11:06 | ED ---
General Adult HPI - General Chief complaint: Extremity Injury, Lower Stated complaint: Hip pain Time Seen by Provider: 11/24/20 10:08 Source: patient, EMS Mode of arrival: EMS Limitations: no limitations - History of Present Illness Initial comments: 85-year-old female presents emergency Department chief complaint right hip pain. Patient had surgery almost [address] Estrella. Patient states that she went to stand up and felt a pop. Patient complains of right hip groin pain. No paresthesias. Patient states is painful so she ended up calling EMS. - Related Data Home Medications Medication Instructions Recorded Confirmed Escitalopram [Lexapro] 20 mg PO DAILY 09/24/15 11/05/20 mycophenolate mofetiL [Cellcept] 750 mg PO BID 09/24/15 11/05/20 Verapamil HCl [Verapamil ER] 180 mg PO DAILY 05/28/16 11/05/20 Dorzolamide/Timolol/Pf 1 drop BOTH EYES BID 10/11/18 11/05/20 [Dorzolamide-Timolol 2%-0.5%] Levothyroxine Sodium 100 mcg PO DAILY 10/11/18 11/05/20 ALPRAZolam [Xanax] 0.25 mg PO BID PRN 10/30/18 11/05/20 Apixaban [Eliquis] 2.5 mg PO BID 11/05/20 11/05/20 Atorvastatin [Lipitor] 20 mg PO HS 11/05/20 11/05/20 Brimonidine Unknown Dose 1 drop BOTH EYES BID 11/05/20 11/05/20 Latanoprost [Xalatan 0.005%] 1 drop BOTH EYES HS 11/05/20 11/05/20 Metoprolol Tartrate [Lopressor] 25 mg PO BID 11/05/20 11/05/20 Previous Rx's Medication Instructions Recorded Acetaminophen-Codeine 300-30mg 1 - 2 tab PO Q4H PRN #40 tablet 11/09/20 [Tylenol w/codeine #3] Ondansetron Odt [Zofran Odt] 4 mg PO Q8HR PRN #30 tab 11/09/20 Loperamide [Imodium] 2 mg PO QID PRN #30 cap 11/10/20 Allergies Allergy/AdvReac Type Severity Reaction Status Date / Time No Known Allergies Allergy Verified 11/24/20 11:34 Review of Systems ROS Statement: Those systems with pertinent positive or pertinent negative responses have been documented in the HPI. ROS Other: All systems not noted in ROS Statement are negative. 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 Recieved both covid vaccines, [place]nd dose [place] History of Any Multi-Drug Resistant Organisms: None Reported Past Surgical History: Appendectomy, Hysterectomy, Orthopedic Surgery Additional Past Surgical History / Comment(s): left ankle, left hip surgery x 2017 Past Anesthesia/Blood Transfusion Reactions: Postoperative Nausea & Vomiting (PONV) Past Psychological History: No Psychological Hx Reported Smoking Status: Former smoker Past Alcohol Use History: Occasional Past Drug Use History: None Reported - Past Family History Mother Family Medical History: Myocardial Infarction (CA) Additional Family Medical History / Comment(s): mother passed 5 at 52 from a CA Father Family Medical History: CVA/TIA Additional Family Medical History / Comment(s): father from stroke General Exam Limitations: no limitations General appearance: alert, in no apparent distress Head exam: Present: atraumatic, normocephalic, normal inspection Neck exam: Present: normal inspection, full ROM. Absent: tenderness, meningismus, lymphadenopathy Respiratory exam: Present: normal lung sounds bilaterally. Absent: respiratory distress, wheezes, rales, rhonchi, stridor Cardiovascular Exam: Present: regular rate, normal rhythm, normal heart sounds. Absent: systolic murmur, diastolic murmur, rubs, gallop, clicks GI/Abdominal exam: Present: soft, normal bowel sounds. Absent: distended, tenderness, guarding, rebound, rigid Extremities exam: Present: other (external rotation or right leg with mild tenderness in the groin/hip NV intact) Neurological exam: Present: alert Skin exam: Present: warm, dry, intact, normal color. Absent: rash Course Vital Signs 11/24/20 10:13 Temperature 97.8 F Pulse Rate 89 Respiratory 18 Rate Blood Pressure 141/74 O2 Sat by Pulse 100 Oximetry Medical Decision Making - Medical Decision Making X-ray reviewed there are no new fractures or his location or hardware shifting. Patient was able to stand, ambulates with mild soreness to her right hip with her walker. Patient feels comfortable with discharge has pain medication at home has a follow-up appointment with Dr. Estrella Disposition Clinical Impression: Right hip pain Disposition: HOME SELF-CARE Condition: Stable Instructions (If sedation given, give patient instructions): Hip Pain (ED) Additional Instructions: Please return to the Emergency Department if symptoms worsen or any other concerns. Is patient prescribed a controlled substance at d/c from ED?: No Referrals: Aryan Tsang III, MD [Primary Care Provider] - 1-2 days Scott Estrella DO [Doctor of Osteopathic Medicine] - 1-2 days Time of Disposition: 11:43
== END 2020-11-24 12:01 | disposition home or self-care (01) ==
LOC: EC 10:07
DX: M25.551 Pain in right hip (principal); R10.30 Lower abdominal pain, unspecified; I48.91 Unspecified atrial fibrillation; K21.9 Gastro-esophageal reflux disease without esophagitis; E78.5 Hyperlipidemia, unspecified; I10 Essential (primary) hypertension; M19.90 Unspecified osteoarthritis, unspecified site; Z87.891 Personal history of nicotine dependence; Z79.01 Long term (current) use of anticoagulants
CPT/HCPCS: 73502; 99283

== ENCOUNTER 2021-08-27 12:25 | Emergency (ER) | payer MEDICARE, BC ==
[2021-08-27 12:32] VITALS: BP 174/80; PULSE 80; RESP 20; TEMP 97.5
--- NOTE | 2021-08-27 13:33 | XR ---
EXAMINATION TYPE: XR knee complete LT DATE OF EXAM: 08/27/2021 CLINICAL HISTORY: pain TECHNIQUE: Three views of the left knee are obtained. COMPARISON: None. FINDINGS: There is no acute fracture/dislocation. The tri-compartment joint spaces appear moderatel y narrowed. The overlying soft tissue appears unremarkable. Small suprapatellar joint effusion noted. IMPRESSION: There is no acute fracture or dislocation ICD 10 NO FRACTURE, INITIAL EVALUATION
--- NOTE | 2021-08-27 13:34 | XR ---
EXAMINATION TYPE: XR ankle complete LT DATE OF EXAM: 08/27/2021 COMPARISON: NONE HISTORY: Pain TECHNIQUE: 3 views of the left ankle are submitted for evaluation. FINDINGS: There is no evidence for fracture or dislocation. Ankle mortise is intact. Soft tissues are within normal limits. IMPRESSION: 1. No evidence for acute fracture.
--- NOTE | 2021-08-27 13:53 | ED ---
Fall HPI - General Chief Complaint: Fall Stated Complaint: fall, left knee, left ankle pain Time Seen by Provider: 08/27/21 12:41 Source: patient Mode of arrival: wheelchair - History of Present Illness Initial Comments: Patient is an 86-year-old female who presents to the emergency department with a chief complaint of left ankle pain. 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 She landed on her left knee gently. She did not hit her head. Patient noticed increased left ankle and left knee swelling today so she went to the urgent care who sent her to the emergency department as they did not feel comfortable due to patient taking Eliquis. Patient currently reports mild left ankle pain. She denies instability. She is able to walk on it with her walker. She denies left knee pain. - Related Data Home Medications Medication Instructions Recorded Confirmed mycophenolate mofetiL [Cellcept] 1,000 mg PO HS 09/24/15 08/27/21 Verapamil HCl [Verapamil ER] 180 mg PO HS 05/28/16 08/27/21 Levothyroxine Sodium 100 mcg PO MOTUWETHFR 10/11/18 08/27/21 ALPRAZolam [Xanax] 0.25 mg PO BID PRN 10/30/18 08/27/21 Apixaban [Eliquis] 2.5 mg PO BID 11/05/20 08/27/21 Atorvastatin [Lipitor] 20 mg PO HS 11/05/20 08/27/21 Latanoprost [Xalatan 0.005%] 1 drop BOTH EYES HS 11/05/20 08/27/21 Acetaminophen [Tylenol Arthritis] 650 mg PO Q8H PRN 08/27/21 08/27/21 Brimonidine Tartrate [Alphagan P 1 drop RIGHT EYE BID 08/27/21 08/27/21 0.2% Ophth Soln] Ferrous Sulfate [Slow Fe] 142 mg PO DAILY 08/27/21 08/27/21 Ketoconazole 2% Shampoo [Nizoral] 1 applic TOPICAL Q3D PRN 08/27/21 08/27/21 Losartan [Cozaar] 25 mg PO DAILY 08/27/21 08/27/21 Allergies Allergy/AdvReac Type Severity Reaction Status Date / Time No Known Allergies Allergy Verified 08/27/21 13:51 Review of Systems ROS Statement: Those systems with pertinent positive or pertinent negative responses have been documented in the HPI. ROS Other: All systems not noted in ROS Statement are negative. 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 Recieved both covid vaccines, 2nd dose around easter History of Any Multi-Drug Resistant Organisms: None Reported Past Surgical History: Appendectomy, Hysterectomy, Orthopedic Surgery Additional Past Surgical History / Comment(s): left ankle, left hip surgery x 2017 Past Anesthesia/Blood Transfusion Reactions: Postoperative Nausea & Vomiting (PONV) Past Psychological History: No Psychological Hx Reported Smoking Status: Former smoker Past Alcohol Use History: Occasional Past Drug Use History: None Reported - Past Family History Mother Family Medical History: Myocardial Infarction ([place]) Additional Family Medical History / Comment(s): mother passed 5 at 52 from a [place] Father Family Medical History: CVA/TIA Additional Family Medical History / Comment(s): father from stroke General Exam Limitations: no limitations General appearance: alert, in no apparent distress Head exam: Present: atraumatic, normocephalic, normal inspection Eye exam: Present: normal appearance, PERRL, EOMI. Absent: scleral icterus, conjunctival injection, periorbital swelling Neck exam: Present: normal inspection. Absent: tenderness Respiratory exam: Present: normal lung sounds bilaterally. Absent: respiratory distress, wheezes, rales, rhonchi, stridor Cardiovascular Exam: Present: regular rate, normal rhythm, normal heart sounds. Absent: systolic murmur, diastolic murmur, rubs, gallop, clicks GI/Abdominal exam: Present: soft, normal bowel sounds. Absent: distended, tenderness, guarding, rebound, rigid Extremities exam: Present: other (Left ankle: Mild swelling laterally. No erythema or ecchymosis. Patient is tender to palpation over the tip of the lateral malleolus. Negative talar tilt and anterior drawer test. Sensation intact. Pulses present. Left knee: minimal swelling superior to the patella. No erythema or ecchymosis ) Neurological exam: Present: alert, oriented X3, CN II-XII intact Psychiatric exam: Present: normal affect, normal mood Skin exam: Present: warm, dry, intact, normal color. Absent: rash Course Vital Signs 08/27/21 12:27 Temperature 97.5 F L Pulse Rate 80 Respiratory 20 Rate Blood Pressure 174/80 O2 Sat by Pulse 98 Oximetry Medical Decision Making - Medical Decision Making This is an 86-year-old female presents with left ankle pain and left knee swelling. Thorough history and examination were performed. Left knee and left ankle x-ray revealed no fracture or dislocation. This is likely a grade 1 sprain as patient has minimal pain, swelling, and is able to bear weight. Patient offered pain medication and air splint. She declines at this time and will be discharged. Patient instructed to follow up with primary care provider in one to 2 days. Return parameters discussed. Dr. Hopkins is my attending. Disposition Clinical Impression: Ankle pain, left, Left knee pain Disposition: HOME SELF-CARE Condition: Good Instructions (If sedation given, give patient instructions): Fall Prevention for Older Adults (ED) Additional Instructions: You may bear weight on the left ankle as tolerated. Ice the ankle 4 times a day for 20 minutes for symptom relief. Keep the ankle elevated when resting to reduce swelling. Take Tylenol as needed for pain. Follow-up with primary care provider in 1-2 days. Turn to the emergency department if you experience new, concerning, or worsening symptoms Is patient prescribed a controlled substance at d/c from ED?: No Referrals: Aryan Tsang III, MD [Primary Care Provider] - 1-2 days Time of Disposition: 13:53
== END 2021-08-27 14:15 | disposition home or self-care (01) ==
LOC: EC 12:25
DX: M25.572 Pain in left ankle and joints of left foot (principal); M25.562 Pain in left knee; I10 Essential (primary) hypertension; I48.91 Unspecified atrial fibrillation; K21.9 Gastro-esophageal reflux disease without esophagitis; E78.5 Hyperlipidemia, unspecified; M19.90 Unspecified osteoarthritis, unspecified site; Z87.891 Personal history of nicotine dependence; Z79.890 Hormone replacement therapy; Z79.01 Long term (current) use of anticoagulants; Z79.899 Other long term (current) drug therapy; X50.1XXA Overexertion from prolonged static or awkward postures, initial encounter
CPT/HCPCS: 99283

== ENCOUNTER 2022-04-26 14:19 | Emergency (ER) | payer MEDICARE, BC ==
[2022-04-26 14:37] VITALS: TEMP 97
--- NOTE | 2022-04-26 15:48 | ED ---
General Adult HPI - General Chief complaint: Shortness of Breath Stated complaint: pneumonia Time Seen by Provider: 04/26/22 15:11 Source: patient Mode of arrival: ambulatory Limitations: no limitations - History of Present Illness Initial comments: Dictation was produced using [employer] dictation software. please excuse any grammatical, word or spelling errors. Chief Complaint: 86-year-old female sent in for the urgent care for evaluation History of Present Illness: Patient's 86-year-old female presents to the emergency department for evaluation. Allegedly 10 days ago she was diagnosed with pneumonia. She was started on Augmentin dose prescribed by the urgent care. GEN a follow-up appointment with her department coordinator 3-4 days ago told her that she still has pneumonia and to follow up with her primary care doctor. They tried to make an appointment with PCP, Dr. Tsang however were unable to do so. She will follow up with urgent care today and had an x-ray that showed persistent pneumonia. She was then redirected to the emergency department. Patient states that she is overall feeling better. She is on day 10 of Augmentin. Patient denies any shortness of breath. Denies any fever or constitutional symptoms. The ROS documented in this emergency department record has been reviewed and confirmed by me. Those systems with pertinent positive or negative responses have been documented in the HPI. All other systems are other negative and/or noncontributory. PHYSICAL EXAM: General Impression: Alert and oriented x3, not in acute distress HEENT: Normocephalic atraumatic, extra-ocular movements intact, pupils equal and reactive to light bilaterally, mucous membranes moist. Cardiovascular: Heart regular rate and rhythm Chest: Able to complete full sentences, no retractions, no tachypnea, mild maintenance craftsman ckling at the left lower lung base posteriorly Abdomen: abdomen soft, non-tender, non-distended, no organomegaly Musculoskeletal: Pulses present and equal in all extremities, no peripheral edema Motor: no focal deficits noted Neurological: CN II-XII grossly intact, no focal motor or sensory deficits noted Skin: Intact with no visualized rashes Psych: Normal affect and mood ED course: 86-year-old female presents to the emergency department for evaluation of perhaps persistent pneumonia. Overall patient states that she is feeling better. Signs upon arrival are within acceptable limits. Patient's well-appearing at the bedside she is not showing any signs of respiratory distress. She is afebrile and reports overall feeling better. Within acceptable limits. X-rays unremarkable. Patient observed in emergency department for 3 hours. Reevaluate bedside at 5:15 PM found to be stable [facility] condition. Patient be discharged. EKG interpretation: Ventricular rate 89, sinus rhythm,. Interval to 12, crit 37, QTc 402. No ID prolongation, no QTC prolongation, no ST or T-wave changes noted. Overall, this EKG is unremarkable - Related Data Home Medications Medication Instructions Recorded Confirmed mycophenolate mofetiL [Cellcept] 1,000 mg PO HS 09/24/15 08/27/21 Verapamil HCl [Verapamil ER] 180 mg PO HS 05/28/16 08/27/21 Levothyroxine Sodium 100 mcg PO MOTUWETHFR 10/11/18 08/27/21 ALPRAZolam [Xanax] 0.25 mg PO BID PRN 10/30/18 08/27/21 Apixaban [Eliquis] 2.5 mg PO BID 11/05/20 08/27/21 Atorvastatin [Lipitor] 20 mg PO HS 11/05/20 08/27/21 Latanoprost [Xalatan 0.005%] 1 drop BOTH EYES HS 11/05/20 08/27/21 Acetaminophen [Tylenol Arthritis] 650 mg PO Q8H PRN 08/27/21 08/27/21 Brimonidine Tartrate [Alphagan P 1 drop RIGHT EYE BID 08/27/21 08/27/21 0.2% Ophth Soln] Ferrous Sulfate [Slow Fe] 142 mg PO DAILY 08/27/21 08/27/21 Ketoconazole 2% Shampoo [Nizoral] 1 applic TOPICAL Q3D PRN 08/27/21 08/27/21 Losartan [Cozaar] 25 mg PO DAILY 08/27/21 08/27/21 Allergies Allergy/AdvReac Type Severity Reaction Status Date / Time No Known Allergies Allergy Verified 04/26/22 14:37 Review of Systems ROS Statement: Those systems with pertinent positive or pertinent negative responses have been documented in the HPI. ROS Other: All systems not noted in ROS Statement are negative. 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 Recieved both covid vaccines, 2nd dose around [place] History of Any Multi-Drug Resistant Organisms: None Reported Past Surgical History: Appendectomy, Hysterectomy, Orthopedic Surgery Additional Past Surgical History / Comment(s): left ankle, left hip surgery x 2017 Past Anesthesia/Blood Transfusion Reactions: Postoperative Nausea & Vomiting (PONV) Past Psychological History: No Psychological Hx Reported Smoking Status: Former smoker Past Alcohol Use History: Occasional Past Drug Use History: None Reported - Past Family History Mother Family Medical History: Myocardial Infarction ([place]) Additional Family Medical History / Comment(s): mother passed 5 at 52 from a [place] Father Family Medical History: CVA/TIA Additional Family Medical History / Comment(s): father from stroke General Exam Limitations: no limitations Course Vital Signs 04/26/22 04/26/22 14:34 16:48 Temperature 97 F L Pulse Rate 98 96 Respiratory 16 18 Rate Blood Pressure 144/80 123/69 O2 Sat by Pulse 99 97 Oximetry Medical Decision Making - Lab Data Result diagrams: 04/26/22 16:08 04/26/22 16:08 Lab Results 04/26/22 04/26/22 04/26/22 Range/Units 16:08 16:08 16:08 WBC 7.1 (3.8-10.6) k/uL RBC 4.00 (3.80-5.40) m/uL Hgb 11.2 L (11.4-16.0) gm/dL Hct 35.9 (34.0-46.0) % MCV 89.8 (80.0-100.0) fL MCH 28.1 (25.0-35.0) pg MCHC 31.3 (31.0-37.0) g/dL RDW 13.2 (11.5-15.5) % Plt Count 557 H (150-450) k/uL MPV 7.2 Neutrophils % 74 % Lymphocytes % 15 % Monocytes % 7 % Eosinophils % 2 % Basophils % 1 % Neutrophils # 5.2 (1.3-7.7) k/uL Lymphocytes # 1.1 (1.0-4.8) k/uL Monocytes # 0.5 (0-1.0) k/uL Eosinophils # 0.2 (0-0.7) k/uL Basophils # 0.0 (0-0.2) k/uL Hypochromasia Marked Sodium 134 L (137-145) mmol/L Potassium 5.3 H (3.5-5.1) mmol/L Chloride 102 (98-107) mmol/L Carbon Dioxide 19 L (22-30) mmol/L Anion Gap 13 mmol/L BUN 24 H (7-17) mg/dL Creatinine 1.32 H (0.52-1.04) mg/dL Est GFR (CKD-EPI)AfAm 42 (>60 ml/min/1.73 sqM) Est GFR (CKD-EPI)NonAf 36 (>60 ml/min/1.73 sqM) Glucose 89 (74-99) mg/dL Plasma Lactic Acid King 1.2 (0.7-2.0) mmol/L Calcium 8.7 (8.4-10.2) mg/dL Disposition Clinical Impression: Abnormal x-ray Disposition: HOME SELF-CARE Condition: Good Instructions (If sedation given, give patient instructions): Bacterial Pneumonia (ED) Is patient prescribed a controlled substance at d/c from ED?: No Referrals: Aryan Tsang III, MD [Primary Care Provider] - 1-2 days Time of Disposition: 17:13
--- NOTE | 2022-04-26 16:23 | XR ---
EXAMINATION TYPE: XR chest 2V DATE OF EXAM: 04/26/2022 COMPARISON: 11/05/2020 HISTORY: Shortness of breath TECHNIQUE: Frontal and lateral views of the chest are obtained. FINDINGS: Scattered senescent parenchymal changes noted. Hyperinflation compatible with COPD. No evidence for infiltrate. No evidence for atelectasis. Heart size is stable. Mediastinal structures are stable and grossly unremarkable. No evidence for hilar prominence. Degenerative changes dorsal spine. IMPRESSION: 1. No evidence for acute pulmonary disease.
[2022-04-26 16:37] LABS: Basophils % (A) 1 %; Eosinophils # (A) 0.2 k/uL (0-0.7); Eosinophils % (A) 2 %; HCT 35.9 % (34.0-46.0); HGB 11.2 gm/dL (11.4-16.0); Hypochromasia Marked; Lymphocytes # (A) 1.1 k/uL (1.0-4.8); Lymphocytes % (A) 15 %; MCH 28.1 pg (25.0-35.0); MCHC 31.3 g/dL (31.0-37.0); MCV 89.8 fL (80.0-100.0); Mean Platelet Volume 7.2; Monocytes # (A) 0.5 k/uL (0-1.0); Monocytes % (A) 7 %; Neutrophils # (A) 5.2 k/uL (1.3-7.7); Neutrophils % (A) 74 %; Platelet Count 557 k/uL (150-450); RDW 13.2 % (11.5-15.5); WBC 7.1 k/uL (3.8-10.6)
[2022-04-26 16:46] LABS: Calcium 8.7 mg/dL (8.4-10.2)
[2022-04-26 16:48] LABS: Potassium 5.3 mmol/L (3.5-5.1)
[2022-04-26 17:47] VITALS: BP 134/73; PULSE 98; RESP 16
== END 2022-04-26 17:47 | disposition home or self-care (01) ==
LOC: EC 14:19
DX: J18.9 Pneumonia, unspecified organism (principal); I48.91 Unspecified atrial fibrillation; K21.9 Gastro-esophageal reflux disease without esophagitis; E78.5 Hyperlipidemia, unspecified; I10 Essential (primary) hypertension; M19.90 Unspecified osteoarthritis, unspecified site; Z87.891 Personal history of nicotine dependence
CPT/HCPCS: 36415; 71046; 80048; 83605; 85025; 93005; 99284

== ENCOUNTER 2023-06-07 11:08 | Emergency (ER) | payer MEDICARE, BC ==
--- NOTE | 2023-06-07 11:50 | ED ---
General Adult HPI - General Source: patient Mode of arrival: wheelchair Limitations: no limitations <Safia Botello - Last Filed: 06/07/23 11:49> - General Source: RN notes reviewed, old records reviewed <Thomas Monson - Last Filed: 06/07/23 15:41> - General Chief complaint: Recheck/Abnormal Lab/Rx Stated complaint: evlevated bp may have had a mild stroke Time Seen by Provider: 06/07/23 11:50 - History of Present Illness Initial comments: Patient is a 87-year-old female presents emergency room with complaints of elevated blood pressure over the last few days. Also complains of a left conjunctival hemorrhage that started yesterday and when she woke up. Denies any trauma to the eye. Denies any vision changes, dizziness or sensitivity to light. She denies any headache, chest pain, shortness breath, neurological symptoms including paralysis weakness or abnormal speech. (Safia Botello) This is an 87-year-old who comes emergency Department complaining of elevated blood pressure. Patient denies headache patient denies any numbness weakness. Patient denies chest pain difficulty breathing shortness breath or palpitations. Patient does also mention that she has a subconjunctival hemorrhage that started yesterday morning. Patient states she takes her morning blood pressure meds but she does not take her evening was confused he falls asleep and forgets. Patient denies any abdominal pain patient denies nausea vomiting diarrhea. Patient denies any fever chills or cough. Patient has no complaints and states she never did have any complaints except for the fact her blood pressure was elevated. (Thomas Monson) - Related Data Home Medications Medication Instructions Recorded Confirmed mycophenolate mofetiL [Cellcept] 500 mg PO BID 09/24/15 06/07/23 Levothyroxine Sodium 100 mcg PO MOTUWETHFR 10/11/18 06/07/23 ALPRAZolam [Xanax] 0.25 mg PO BID PRN 10/30/18 06/07/23 Apixaban [Eliquis] 2.5 mg PO BID 11/05/20 06/07/23 Latanoprost [Xalatan 0.005%] 1 drop BOTH EYES HS 11/05/20 06/07/23 Brimonidine Tartrate [Alphagan P 1 drop BOTH EYES DAILY 03/05/22 12/14/23 0.2% Ophth Soln] Dorzolamide/Timolol/Pf 1 drop BOTH EYES DAILY 06/07/23 06/07/23 [Dorzolamide 2%-Timolol 0.5%] Ergocalciferol (Vitamin D2) 1,250 mcg PO Q14D 06/07/23 06/07/23 [Drisdol (50,000 Iu)] Iron 18 mg PO DAILY 06/07/23 06/07/23 Losartan Potassium 50 mg PO DAILY 06/07/23 06/07/23 Mirtazapine [Remeron] 15 mg PO HS 06/07/23 06/07/23 Simvastatin [Zocor] 20 mg PO HS 06/07/23 06/07/23 Triamcinolone 0.1% Cream [Kenalog 1 applic TOPICAL BID PRN 06/07/23 06/07/23 0.1% Cream] Verapamil HCl [Verapamil ER] 240 mg PO DAILY 06/07/23 06/07/23 calcitrioL [Calcitriol] 0.5 mcg PO MO 06/07/23 06/07/23 Allergies Allergy/AdvReac Type Severity Reaction Status Date / Time No Known Allergies Allergy Verified 06/07/23 15:06 Review of Systems ROS Other: All systems not noted in ROS Statement are negative. <Safia Botello - Last Filed: 06/07/23 11:49> ROS Other: All systems not noted in ROS Statement are negative. <Thomas Monson - Last Filed: 06/07/23 15:41> ROS Statement: Those systems with pertinent positive or pertinent negative responses have been documented in the HPI. 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 Recieved both covid vaccines, 2nd dose around History of Any Multi-Drug Resistant Organisms: None Reported Past Surgical History: Appendectomy, Hysterectomy, Orthopedic Surgery Additional Past Surgical History / Comment(s): left ankle, left hip surgery x 2017 Past Anesthesia/Blood Transfusion Reactions: Postoperative Nausea & Vomiting (PONV) Past Psychological History: No Psychological Hx Reported Smoking Status: Former smoker Past Alcohol Use History: Daily Past Drug Use History: None Reported - Past Family History Mother Family Medical History: Myocardial Infarction (MT) Additional Family Medical History / Comment(s): mother passed 5 at 52 from a [place] Father Family Medical History: CVA/TIA Additional Family Medical History / Comment(s): father from stroke <Safia Botello - Last Filed: 06/07/23 11:49> General Exam Limitations: no limitations <Matthias Botellon - Last Filed: 06/07/23 11:49> <Thomas Monson - Last Filed: 06/07/23 15:41> - General Exam Comments Initial Comments: Visual Physical Exam Vital signs reviewed General: Well-appearing, nontoxic, no acute distress. Head: Normocephalic, atraumatic Eyes: PERRLA, EOMI, left subconjunctival hemorrhage ENT: Airway patent Chest: Nonlabored breathing Skin: No visual rash, normal skin tone Neuro: Alert and oriented 3 Musculoskeletal: No gross abnormalities (Safia Botello) GENERAL: Patient is well-developed and well-nourished. Patient is nontoxic and well- hydrated and is in no acute distress. ENT: Neck is soft and supple. No significant lymphadenopathy is noted. Oropharynx is clear. Moist mucous membranes. Neck has full range of motion without eliciting any pain. EYES: The sclera were anicteric and conjunctiva were pink and moist. Patient has a subconjunctival hemorrhage in the left eye. Extraocular movements were intact and pupils were equal round and reactive to light. Eyelids were unremarkable. PULMONARY: Unlabored respirations. Good breath sounds bilaterally. No audible rales rhonchi or wheezing was noted. CARDIOVASCULAR: There is a regular rate and rhythm without any murmurs gallops or rubs. ABDOMEN: Soft and nontender with normal bowel sounds. SKIN: Skin is clear with no lesions or rashes and otherwise unremarkable. NEUROLOGIC: Patient is alert and oriented x3. Cranial nerves II through XII are grossly intact. Motor and sensory are also intact. Normal speech, volume and content. Symmetrical smile. MUSCULOSKELETAL: Normal extremities with adequate strength and full range of motion. No lower extremity swelling or edema. No calf tenderness. LYMPHATICS: No significant lymphadenopathy is noted PSYCHIATRIC: Normal psychiatric evaluation. (Thomas Monson) Course Vital Signs 06/07/23 06/07/23 06/07/23 11:25 13:06 14:49 Temperature 97.6 F 97.6 F Pulse Rate 136 H 106 H Respiratory 18 15 Rate Blood Pressure 187/109 192/100 196/104 O2 Sat by Pulse 99 96 Oximetry Medical Decision Making <Safia Botello - Last Filed: 06/07/23 11:49> - Lab Data Result diagrams: 06/07/23 11:56 06/07/23 11:56 <Thomas Monson - Last Filed: 06/07/23 15:41> - Medical Decision Making Quick note portion completed by myself, electronically signed VIKTOR Almodovar. (Safia Botello) EKG was interpreted by myself. EKG shows sinus tachycardia at 106 bpm [place] interval 291 QRSs 81 QT interval 3:30 QTC is 392. Patient's EKG shows no ST segment elevation or depression. Was pt. sent in by a medical professional or institution (, PA, PHYSIOGNOMIST, urgent care, hospital, or jail...) When possible be specific @ -Patient was sent into the ER by her primary medical care doctor Did you speak to anyone other than the patient for history (EMS, parent, family, police, friend...)? What history was obtained from this source @ -No Did you review nursing and triage notes (agree or disagree)? Why? @ -I reviewed and agree with nursing and triage notes Were old charts reviewed (outside hosp., previous admission, EMS record, old EKG, old radiological studies, urgent care reports/EKG's, jail records)? Report findings @ -I reviewed prior charts prior labwork on this patient Differential Diagnosis (chest pain, altered mental status, abdominal pain women, abdominal pain men, vaginal bleeding, weakness, fever, dyspnea, syncope, headache, dizziness, GI bleed, back pain, seizure, CVA, palpatations, mental health, musculoskeletal)? @ -not applicable EKG interpreted by me (3pts min.). @ -As above X-rays interpreted by me (1pt min.). @ -None done CT interpreted by me (1pt min.). @ -None done U/S interpreted by me (1pt. min.). @ -None done What testing was considered but not performed or refused? (CT, X-rays, U/S, labs)? Why? @ -None What meds were considered but not given or refused? Why? @ -None Did you discuss the management of the patient with other professionals (professionals i.e. , PA, PHYSIOGNOMIST, lab, RT, psych nurse, medical social consultant, registered land surveyor, teacher, combat information center officer, manager of case)? Give summary @ -No Was smoking cessation discussed for >3mins.? @ -No Was critical care preformed (if so, how long)? @ -No Were there social determinants of health that impacted care today? How? (Homelessness, low income, unemployed, alcoholism, drug addiction, transportation, low edu. Level, literacy, decrease access to med. care, group home, rehab)? @ -No Was there de-escalation of care discussed even if they declined (Discuss DNR or withdrawal of care, Hospice)? DNR status @ -No What co-morbidities impacted this encounter? (DM, HTN, Smoking, COPD, CAD, Cancer, CVA, ARF, Chemo, Hep., AIDS, mental health diagnosis, sleep apnea, morbid obesity)? @ -None Was patient admitted / discharged? Hospital course, mention meds given and route, prescriptions, significant lab abnormalities, going to OR and other p ertinent info. @ -Patient received hydralazine in that brought her blood pressure down into a normal range. Patient had no symptoms while in the emergency department. Patient realizes that she has to start taking her blood pressure medications as prescribed. Undiagnosed new problem with uncertain prognosis? @ -No Drug Therapy requiring intensive monitoring for toxicity (Heparin, Nitro, Insulin, Cardizem)? @ -No Were any procedures done? @ -No Diagnosis/symptom? @ -Hypertensive urgency Acute, or Chronic, or Acute on Chronic? @ -Acute Uncomplicated (without systemic symptoms) or Complicated (systemic symptoms)? @ -Complicated Side effects of treatment? @ -No Exacerbation, Progression, or Severe Exacerbation? @ -No Poses a threat to life or bodily function? How? (Chest pain, USA, [place], pneumonia, PE, COPD, DKA, ARF, appy, cholecystitis, CVA, Diverticulitis, Homicidal, Suicidal, threat to staff... and all critical care pts) @ -No (Thomas Monson) - Lab Data Lab Results 06/07/23 06/07/23 06/07/23 Range/Units 11:56 11:56 11:56 WBC 6.7 (3.8-10.6) k/uL RBC 4.44 (3.80-5.40) m/uL Hgb 11.9 (11.4-16.0) gm/dL Hct 39.3 (34.0-46.0) % MCV 88.5 (80.0-100.0) fL MCH 26.9 (25.0-35.0) pg MCHC 30.3 L (31.0-37.0) g/dL RDW 14.9 (11.5-15.5) % Plt Count 383 (150-450) k/uL MPV 7.1 Neutrophils % 72 % Lymphocytes % 14 % Monocytes % 7 % Eosinophils % 5 % Basophils % 1 % Neutrophils # 4.8 (1.3-7.7) k/uL Lymphocytes # 1.0 (1.0-4.8) k/uL Monocytes # 0.5 (0-1.0) k/uL Eosinophils # 0.3 (0-0.7) k/uL Basophils # 0.0 (0-0.2) k/uL Hypochromasia Marked PT 10.4 (10.0-12.5) sec INR 0.9 (<1.2) APTT 25.6 (22.0-30.0) sec Sodium 139 (137-145) mmol/L Potassium 4.1 (3.5-5.1) mmol/L Chloride 103 (98-107) mmol/L Carbon Dioxide 28 (22-30) mmol/L Anion Gap 8 mmol/L BUN 25 H (7-17) mg/dL Creatinine 1.53 H (0.52-1.04) mg/dL Est GFR (CKD-EPI)AfAm 35 (>60 ml/min/1.73 sqM) Est GFR (CKD-EPI)NonAf 30 (>60 ml/min/1.73 sqM) Glucose 97 (74-99) mg/dL Calcium 9.2 (8.4-10.2) mg/dL Total Bilirubin 0.4 (0.2-1.3) mg/dL AST 26 (14-36) U/L ALT 9 (4-34) U/L Alkaline Phosphatase 91 (38-126) U/L Troponin I (0.000-0.034) ng/mL Total Protein 7.1 (6.3-8.2) g/dL Albumin 3.9 (3.5-5.0) g/dL 06/07/23 Range/Units 11:56 WBC (3.8-10.6) k/uL RBC (3.80-5.40) m/uL Hgb (11.4-16.0) gm/dL Hct (34.0-46.0) % MCV (80.0-100.0) fL MCH (25.0-35.0) pg MCHC (31.0-37.0) g/dL RDW (11.5-15.5) % Plt Count (150-450) k/uL MPV Neutrophils % % Lymphocytes % % Monocytes % % Eosinophils % % Basophils % % Neutrophils # (1.3-7.7) k/uL Lymphocytes # (1.0-4.8) k/uL Monocytes # (0-1.0) k/uL Eosinophils # (0-0.7) k/uL Basophils # (0-0.2) k/uL Hypochromasia PT (10.0-12.5) sec INR (<1.2) APTT (22.0-30.0) sec Sodium (137-145) mmol/L Potassium (3.5-5.1) mmol/L Chloride (98-107) mmol/L Carbon Dioxide (22-30) mmol/L Anion Gap mmol/L BUN (7-17) mg/dL Creatinine (0.52-1.04) mg/dL Est GFR (CKD-EPI)AfAm (>60 ml/min/1.73 sqM) Est GFR (CKD-EPI)NonAf (>60 ml/min/1.73 sqM) Glucose (74-99) mg/dL Calcium (8.4-10.2) mg/dL Total Bilirubin (0.2-1.3) mg/dL AST (14-36) U/L ALT (4-34) U/L Alkaline Phosphatase (38-126) U/L Troponin I 0.027 (0.000-0.034) ng/mL Total Protein (6.3-8.2) g/dL Albumin (3.5-5.0) g/dL Disposition <Safia Botello - Last Filed: 06/07/23 11:49> Is patient prescribed a controlled substance at d/c from ED?: No Time of Disposition: 15:41 <Thomas Monson - Last Filed: 06/07/23 15:41> Clinical Impression: Hypertensive urgency Disposition: HOME SELF-CARE Condition: Good Instructions (If sedation given, give patient instructions): Hypertension (ED) Additional Instructions: Patient is to start taking her blood pressure medications as prescribed Referrals: Aryan Tsang III, MD [Primary Care Provider] - 1-2 days
[2023-06-07 12:22] LABS: Basophils % (A) 1 %; Eosinophils # (A) 0.3 k/uL (0-0.7); Eosinophils % (A) 5 %; HCT 39.3 % (34.0-46.0); HGB 11.9 gm/dL (11.4-16.0); Hypochromasia Marked; Lymphocytes % (A) 14 %; MCH 26.9 pg (25.0-35.0); MCHC 30.3 g/dL (31.0-37.0); MCV 88.5 fL (80.0-100.0); Mean Platelet Volume 7.1; Monocytes # (A) 0.5 k/uL (0-1.0); Monocytes % (A) 7 %; Neutrophils # (A) 4.8 k/uL (1.3-7.7); Neutrophils % (A) 72 %; Platelet Count 383 k/uL (150-450); RBC 4.44 m/uL (3.80-5.40); RDW 14.9 % (11.5-15.5); WBC 6.7 k/uL (3.8-10.6)
[2023-06-07 12:34] LABS: INR 0.9 (<1.2); Partial Thromboplastin Time 25.6 sec (22.0-30.0); Prothrombin Time 10.4 sec (10.0-12.5)
[2023-06-07 13:00] LABS: ALT 9 U/L (4-34); AST 26 U/L (14-36); African American GFR (CKD) 35 (>60 ml/min/1.73 sqM); Albumin 3.9 g/dL (3.5-5.0); Alkaline Phosphatase 91 U/L (38-126); Anion Gap 8 mmol/L; Blood Urea Nitrogen 25 mg/dL (7-17); Calcium 9.2 mg/dL (8.4-10.2); Carbon Dioxide 28 mmol/L (22-30); Chloride 103 mmol/L (98-107); Glucose 97 mg/dL (74-99); Non-African American GFR(CKD) 30 (>60 ml/min/1.73 sqM); Potassium 4.1 mmol/L (3.5-5.1); Sodium 139 mmol/L (137-145); Total Bilirubin 0.4 mg/dL (0.2-1.3); Total Protein 7.1 g/dL (6.3-8.2)
[2023-06-07] MEDS ORDERED: hydrALAZINE HCL 20 MG/ML 1 ML VIAL IVP STA (13:14)
[2023-06-07] MEDS ORDERED: SODIUM CHLORIDE 0.9% 500 ML 500 ML IV ONE (14:00)
[2023-06-07 16:24] VITALS: BP 119/74; PULSE 101; RESP 16; TEMP 97.8
== END 2023-06-07 16:28 | disposition home or self-care (01) ==
LOC: EC 11:08
DX: I16.0 Hypertensive urgency (principal); I10 Essential (primary) hypertension; I48.91 Unspecified atrial fibrillation; E78.5 Hyperlipidemia, unspecified; M19.90 Unspecified osteoarthritis, unspecified site; Z87.891 Personal history of nicotine dependence; Z79.1 Long term (current) use of non-steroidal anti-inflammatories (NSAID); Z79.899 Other long term (current) drug therapy; Z79.01 Long term (current) use of anticoagulants
CPT/HCPCS: 36415; 80053; 84484; 85025; 85610; 85730; 99284; 96374; 96361; J0360

== ENCOUNTER 2023-06-30 11:33 | Inpatient (IN) | payer MEDICARE, BC ==
--- NOTE | 2023-06-30 12:01 | ED ---
General Adult HPI - General Source: RN notes reviewed <Bryan Hunt - Last Filed: 06/30/23 12:00> <Vincent Downing - Last Filed: 06/30/23 15:21> - General Stated complaint: BP ISSUES - History of Present Illness Initial comments: Quick note: 88-year-old female presents to the emergency room for a chief complaint of high blood pressure. Daughter states patient has had high blood pressure for weeks. If she is taking medications and recently had Dr. Ding increase one of them. Patient is not having any symptoms but they are concerned her blood pressure is so high. (Bryan Hunt) - Related Data Home Medications Medication Instructions Recorded Confirmed mycophenolate mofetiL [Cellcept] 500 mg PO BID 09/24/15 06/07/23 Levothyroxine Sodium 100 mcg PO MOTUWETHFR 10/11/18 06/07/23 ALPRAZolam [Xanax] 0.25 mg PO BID PRN 10/30/18 06/07/23 Apixaban [Eliquis] 2.5 mg PO BID 11/05/20 06/07/23 Latanoprost [Xalatan 0.005%] 1 drop BOTH EYES HS 11/05/20 06/07/23 Brimonidine Tartrate [Alphagan P 1 drop BOTH EYES DAILY 08/27/21 06/07/23 0.2% Ophth Soln] Dorzolamide/Timolol/Pf 1 drop BOTH EYES DAILY 06/07/23 06/07/23 [Dorzolamide 2%-Timolol 0.5%] Ergocalciferol (Vitamin D2) 1,250 mcg PO Q14D 06/07/23 06/07/23 [Drisdol (50,000 Iu)] Iron 18 mg PO DAILY 06/07/23 06/07/23 Losartan Potassium 50 mg PO DAILY 06/07/23 06/07/23 Mirtazapine [Remeron] 15 mg PO HS 06/07/23 06/07/23 Simvastatin [Zocor] 20 mg PO HS 06/07/23 06/07/23 Triamcinolone 0.1% Cream [Kenalog 1 applic TOPICAL BID PRN 06/07/23 06/07/23 0.1% Cream] Verapamil HCl [Verapamil ER] 240 mg PO DAILY 06/07/23 06/07/23 calcitrioL [Calcitriol] 0.5 mcg PO MO 06/07/23 06/07/23 Allergies Allergy/AdvReac Type Severity Reaction Status Date / Time No Known Allergies Allergy Verified 06/30/23 12:04 Review of Systems ROS Other: All systems not noted in ROS Statement are negative. <Bryan Hunt - Last Filed: 06/30/23 12:00> ROS Other: All systems not noted in ROS Statement are negative. <Vincent Downing - Last Filed: 06/30/23 15:21> ROS Statement: Those systems with pertinent positive or pertinent negative responses have been documented in the HPI. 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 Recieved both covid vaccines, 2nd dose around History of Any Multi-Drug Resistant Organisms: None Reported Past Surgical History: Appendectomy, Hysterectomy, Orthopedic Surgery Additional Past Surgical History / Comment(s): left ankle, left hip surgery x 2017 Past Anesthesia/Blood Transfusion Reactions: Postoperative Nausea & Vomiting (PONV) Past Psychological History: No Psychological Hx Reported Smoking Status: Former smoker Past Alcohol Use History: Daily Past Drug Use History: None Reported - Past Family History Mother Family Medical History: Myocardial Infarction ([place]) Additional Family Medical History / Comment(s): mother passed 5 at 52 from a [place] Father Family Medical History: CVA/TIA Additional Family Medical History / Comment(s): father from stroke <Bryan Hunt - Last Filed: 06/30/23 12:00> General Exam <Bryan Hunt - Last Filed: 06/30/23 12:00> - General Exam Comments Initial Comments: Visual physical exam: Well-appearing, no acute distress (Bryan Hunt) Course Vital Signs 06/30/23 06/30/23 12:04 14:48 Temperature 97.9 F Pulse Rate 104 H 101 H Respiratory 16 18 Rate Blood Pressure 195/94 211/106 O2 Sat by Pulse 99 98 Oximetry Medical Decision Making - Lab Data Result diagrams: 06/30/23 12:38 06/30/23 12:38 <Vincent Downing - Last Filed: 06/30/23 15:21> - Medical Decision Making Was pt. sent in by a medical professional or institution (SULY Gurrola, DONOR RELATIONS OFFICER, urgent care, hospital, or snf...) When possible be specific @ -No Did you speak to anyone other than the patient for history (EMS, parent, family, police, friend...)? What history was obtained from this source @ -No Did you review nursing and triage notes (agree or disagree)? Why? @ -I reviewed and agree with nursing and triage notes Were old charts reviewed (outside hosp., previous admission, EMS record, old EKG, old radiological studies, urgent care reports/EKG's, snf records)? Report findings @ -No old charts were reviewed Differential Diagnosis (chest pain, altered mental status, abdominal pain women, abdominal pain men, vaginal bleeding, musculoskeletal, weakness, fever, dyspnea, syncope, headache, dizziness, GI bleed, back pain, seizure, CVA, palpatations, mental health)? @ -not applicable EKG interpreted by me (3pts min.). @ -None done X-rays interpreted by me (1pt min.). @ -None done CT interpreted by me (1pt min.). @ -None done U/S interpreted by me (1pt. min.). @ -None done What testing was considered but not performed or refused? (CT, X-rays, U/S, labs)? Why? @ -None What meds were considered but not given or refused? Why? @ -None Did you discuss the management of the patient with other professionals (professionals i.e. SULY Gurrola, DONOR RELATIONS OFFICER, lab, RT, psych nurse, social service assistant, business systems administrator, teacher, disciplinary hearing officer, leather case finisher)? Give summary @ -Case discussed with Dr. Paul for admission Was smoking cessation discussed for >3mins.? @ -No Was critical care preformed (if so, how long)? @ -No Were there social determinants of health that impacted care today? How? (Homelessness, low income, unemployed, alcoholism, drug addiction, transportation, low edu. Level, literacy, decrease access to med. care, care home, rehab)? @ -No Was there de-escalation of care discussed even if they declined (Discuss DNR or withdrawal of care, Hospice)? DNR status @ -No What co-morbidities impacted this encounter? (DM, HTN, Smoking, COPD, CAD, Cancer, CVA, ARF, Chemo, Hep., AIDS, mental health diagnosis, sleep apnea, morbid obesity)? @ -None Was patient admitted / discharged? Hospital course, mention meds given and route, prescriptions, significant lab abnormalities, going to OR and other pertinent info. @ -88-year-old female presents emergency Department with elevated blood pressures. Vital signs upon arrival shows blood pressure of 195/94. Repeat blood pressure is 211/106. She states that she's been having significantly elevated blood pressures for last several days not improving with outpatient management. Patient denies any symptoms of hypertensive emergency. No headache or strokelike symptoms, chest pain or shortness of breath. Patient would benefit from short hospital admission for inpatient management of blood pressure. Patient be admitted. Dr. Paul requests patient be started on twice a day labetalol 200 mg by mouth. Undiagnosed new problem with uncertain prognosis? @ -No Drug Therapy requiring intensive monitoring for toxicity (Heparin, Nitro, Insulin, Cardizem)? @ -No Were any procedures done? @ -No Diagnosis/symptom? Acute, or Chronic, or Acute on Chronic? Uncomplicated (without systemic symptoms) or Complicated (systemic symptoms)? @ -Malignant hypertension Side effects of treatment? @ -No Exacerbation, Progression, or Severe Exacerbation? @ -No Poses a threat to life or bodily function? How? (Chest pain, USA, [place], pneumonia, PE, COPD, DKA, ARF, appy, cholecystitis, CVA, Diverticulitis, Homicidal, Suicidal, threat to staff... and all critical care pts) @ -yes (Vincent Downing) - Lab Data Lab Results 06/30/23 06/30/23 Range/Units 12:38 12:38 WBC 5.7 (3.8-10.6) k/uL RBC 4.06 (3.80-5.40) m/uL Hgb 11.2 L (11.4-16.0) gm/dL Hct 36.2 (34.0-46.0) % MCV 89.2 (80.0-100.0) fL MCH 27.5 (25.0-35.0) pg MCHC 30.9 L (31.0-37.0) g/dL RDW 15.5 (11.5-15.5) % Plt Count 386 (150-450) k/uL MPV 6.8 Neutrophils % 76 % Lymphocytes % 13 % Monocytes % 6 % Eosinophils % 3 % Basophils % 0 % Neutrophils # 4.4 (1.3-7.7) k/uL Lymphocytes # 0.8 L (1.0-4.8) k/uL Monocytes # 0.3 (0-1.0) k/uL Eosinophils # 0.2 (0-0.7) k/uL Basophils # 0.0 (0-0.2) k/uL Hypochromasia Moderate Sodium 140 (137-145) mmol/L Potassium 4.7 (3.5-5.1) mmol/L Chloride 106 (98-107) mmol/L Carbon Dioxide 21 L (22-30) mmol/L Anion Gap 13 mmol/L BUN 30 H (7-17) mg/dL Creatinine 1.92 H (0.52-1.04) mg/dL Est GFR (CKD-EPI)AfAm 26 (>60 ml/min/1.73 sqM) Est GFR (CKD-EPI)NonAf 23 (>60 ml/min/1.73 sqM) Glucose 97 (74-99) mg/dL Calcium 9.0 (8.4-10.2) mg/dL Disposition <Bryan Hunt - Last Filed: 06/30/23 12:00> Decision Time: 15:21 <Vincent Downing - Last Filed: 06/30/23 15:21> Clinical Impression: Malignant hypertension Disposition: ADMITTED IP TO THIS HOSP Condition: Fair Referrals: Aryan Tsang III, MD [Primary Care Provider] - 1-2 days
[2023-06-30 12:55] LABS: Basophils % (A) 0 %; Eosinophils # (A) 0.2 k/uL (0-0.7); Eosinophils % (A) 3 %; HCT 36.2 % (34.0-46.0); HGB 11.2 gm/dL (11.4-16.0); Hypochromasia Moderate; Lymphocytes # (A) 0.8 k/uL (1.0-4.8); Lymphocytes % (A) 13 %; MCH 27.5 pg (25.0-35.0); MCHC 30.9 g/dL (31.0-37.0); MCV 89.2 fL (80.0-100.0); Mean Platelet Volume 6.8; Monocytes # (A) 0.3 k/uL (0-1.0); Monocytes % (A) 6 %; Neutrophils # (A) 4.4 k/uL (1.3-7.7); Neutrophils % (A) 76 %; Platelet Count 386 k/uL (150-450); RBC 4.06 m/uL (3.80-5.40); RDW 15.5 % (11.5-15.5); WBC 5.7 k/uL (3.8-10.6)
[2023-06-30 13:17] LABS: African American GFR (CKD) 26 (>60 ml/min/1.73 sqM); Anion Gap 13 mmol/L; Blood Urea Nitrogen 30 mg/dL (7-17); Carbon Dioxide 21 mmol/L (22-30); Chloride 106 mmol/L (98-107); Glucose 97 mg/dL (74-99); Non-African American GFR(CKD) 23 (>60 ml/min/1.73 sqM); Potassium 4.7 mmol/L (3.5-5.1); Sodium 140 mmol/L (137-145)
[2023-06-30] MEDS ORDERED: NALOXONE 0.4 MG/ML 1 ML VIAL IV PRN (15:19)
[2023-06-30] MEDS: SODIUM CHLORIDE 0.9% 1,000 ML IV SCH (15:32)
[2023-06-30] MEDS ORDERED: LABETALOL 200 MG TAB PO SCH (16:00)
[2023-06-30] MEDS ORDERED: TRIAMCINOLONE 0.1% CREAM 80 GM TUBE TOPICAL PRN (18:12)
--- NOTE | 2023-06-30 18:25 | P.HPIM ---
History of Present Illness H&P Date: 06/30/23 Chief Complaint: Uncontrolled blood pressure This is a pleasant 88-year-old patient, who is following with Dr. Wiley. chronic medical conditions include atrial fibrillation, GERD, hyperlipidemia, osteomyelitis, CK D, vasculitis. Patient is followed by motorcycle racer Dr. Ding. For last few days patient blood pressure running high over 200 systolic. Patient denies any chest pain and dizziness lightheadedness. Patient is always at a low rate. Has come in for the same. No dizziness lightheadedness. Review of systems: GEN.: Tired EYES: None HEENT: None NECK: None RESPIRATORY: None CARDIOVASCULAR: None GASTROINTESTINAL: None GENITOURINARY: Urine stress incontinence MUSCULOSKELETAL: Joint pains LYMPHATICS: None HEMATOLOGICAL: None PSYCHIATRY: None NEUROLOGICAL: None Social history: Lives alone. Patient stopped smoking many years ago. Smoked for about 20 y ears. No alcohol. Physical examination: VITAL SIGNS: 97.9, 104, 16, 211/106, 98% room air GENERAL: BMI 40.3, laying in bed awake not in distress. EYES: Pupils equal. Conjunctiva normal. HEENT: External appearance of nose and ears normal, oral cavity grossly normal. NECK: JVD not raised; masses not palpable. HEART: First and second heart sounds are normal; no edema. LUNGS: Respiratory rate normal; clear to auscultation. ABDOMEN: Soft, nontender, liver spleen not palpable, no masses palpable. PSYCH: Alert and oriented x3; mood and affect normal. MUSCULOSKELETAL:No Clubbing/cyanosis;muscles-grossly intact. OA. Loss of muscle mass prominent bones NEUROLOGICAL: Cranial nerves grossly intact; no facial asymmetry, power and sensation grossly intact. LYMPHATICS: No lymph nodes palpable in the axilla and neck INVESTIGATIONS, reviewed in the clinical context: 06/30/2023: White count 5.7 hemoglobin 11.2 platelets 386 potassium 4.7 BUN 30 creatinine 1.9 to Assessment and plan: -Essential hypertension uncontrolled with systolic blood pressure greater than 200. Continue home dose of verapamil ER 240 mg a day and losartan 50 mg daily. Add labetalol 200 mg twice a day. We'll aim to keep the systolic blood pressure around 160 Patient is known to Dr. Ding from nephrology. 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 Attention supplements -Chronic vascular disc, type unknown CellCept -Chronic urinary stress incontinence -Moderate protein calorie malnutrition Ensure. 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 Recieved both covid vaccines, 2nd dose around History of Any Multi-Drug Resistant Organisms: None Reported Past Surgical History: Appendectomy, Hysterectomy, Orthopedic Surgery Additional Past Surgical History / Comment(s): left ankle, left hip surgery x 2017 Past Anesthesia/Blood Transfusion Reactions: Postoperative Nausea & Vomiting (PONV) Past Psychological History: No Psychological Hx Reported Smoking Status: Former smoker Past Alcohol Use History: Daily Past Drug Use History: None Reported - Past Family History Mother Family Medical History: Myocardial Infarction ([place]) Additional Family Medical History / Comment(s): mother passed 5 at 52 from a [place] Father Family Medical History: CVA/TIA Additional Family Medical History / Comment(s): father from stroke Medications and Allergies Home Medications Medication Instructions Recorded Confirmed Type mycophenolate mofetiL [Cellcept] 500 mg PO BID 09/24/15 06/30/23 History Levothyroxine Sodium 100 mcg PO MOTUWETHFR 10/11/18 06/30/23 History ALPRAZolam [Xanax] 0.25 mg PO BID PRN 10/30/18 06/30/23 History Apixaban [Eliquis] 2.5 mg PO BID 11/05/20 06/30/23 History Latanoprost [Xalatan 0.005%] 1 drop BOTH EYES HS 11/05/20 06/30/23 History Brimonidine Tartrate [Alphagan P 1 drop BOTH EYES DAILY 08/27/21 06/30/23 History 0.2% Ophth Soln] Ergocalciferol (Vitamin D2) 1,250 mcg PO Q14D 06/07/23 06/30/23 History [Drisdol (50,000 Iu)] Iron 18 mg PO DAILY 06/07/23 06/30/23 History Losartan Potassium 50 mg PO DAILY 06/07/23 06/30/23 History Mirtazapine [Remeron] 15 mg PO HS 06/07/23 06/30/23 History Simvastatin [Zocor] 20 mg PO HS 06/07/23 06/30/23 History Triamcinolone 0.1% Cream [Kenalog 1 applic TOPICAL BID PRN 06/07/23 06/30/23 History 0.1% Cream] Verapamil HCl [Verapamil ER] 240 mg PO DAILY 06/07/23 06/30/23 History calcitrioL [Calcitriol] 0.5 mcg PO MO 06/07/23 06/30/23 History Dorzolamide-Timol 2.23%/0.68% 1 drop BOTH EYES DAILY 06/30/23 06/30/23 History [Cosopt] Allergies Allergy/AdvReac Type Severity Reaction Status Date / Time No Known Allergies Allergy Verified 06/30/23 16:26 Physical Exam Vitals: Vital Signs Temp Pulse Resp BP Pulse Ox 06/30/23 18:00 90 18 161/82 96 06/30/23 16:18 92 18 208/103 97 06/30/23 14:48 101 H 18 211/106 98 06/30/23 12:04 97.9 F 104 H 16 195/94 99 Intake and Output 06/30/23 06/30/23 06/30/23 06:59 14:59 22:59 Other: Weight 40.37 kg Results CBC & Chem 7: 06/30/23 12:38 06/30/23 12:38 Labs: Abnormal Lab Results - Last 24 Hours (Table) 06/30/23 06/30/23 Range/Units 12:38 12:38 Hgb 11.2 L (11.4-16.0) gm/dL MCHC 30.9 L (31.0-37.0) g/dL Lymphocytes # 0.8 L (1.0-4.8) k/uL Carbon Dioxide 21 L (22-30) mmol/L BUN 30 H (7-17) mg/dL Creatinine 1.92 H (0.52-1.04) mg/dL
[2023-06-30] MEDS: MIRTAZAPINE 15 MG TAB PO SCH (22:08)
[2023-06-30] MEDS: APIXABAN 2.5 MG TABLET PO SCH (22:08)
[2023-06-30] MEDS: ATORVASTATIN 10 MG TAB PO SCH (22:08)
[2023-06-30] MEDS: LABETALOL 200 MG TAB PO SCH (22:09)
[2023-06-30] MEDS: LATANOPROST 0.005% OPHTH DROPS 2.5 ML BTL BOTH EYES SCH (22:12)
[2023-07-01] MEDS: ALPRAZolam 0.25 MG TAB PO PRN ×2 (01:14→22:29)
[2023-07-01] MEDS ORDERED: DORZOLAMIDE-TIMOLOL 2.23%/0.68 10ML BTL BOTH EYES SCH (09:00)
[2023-07-01] MEDS ORDERED: LOSARTAN 50 MG TAB PO SCH (09:00)
[2023-07-01] MEDS ORDERED: NON FORMULARY DRUG (Iron [Iron] 18 MG Tablet) PO SCH (09:00)
[2023-07-01] MEDS: APIXABAN 2.5 MG TABLET PO SCH ×2 (10:58→21:48)
[2023-07-01] MEDS: LABETALOL 200 MG TAB PO SCH (11:00)
[2023-07-01] MEDS: VERAPAMIL SR 240 MG TABLET.ER PO SCH (11:00)
[2023-07-01] MEDS: BRIMONIDINE TARTRATE 0.2% DROPS 5 ML BTL BOTH EYES SCH (11:01)
--- NOTE | 2023-07-01 14:49 | P.PN ---
Progress Note - Text Progress Note Date: 07/01/23 Chief Complaint: Uncontrolled blood pressure This is a pleasant 88-year-old patient, who is following with Dr. Wiley. chronic medical conditions include atrial fibrillation, GERD, hyperlipidemia, osteomyelitis, CK D, vasculitis. Patient is followed by cordage sales representative Dr. Ding. For last few days patient blood pressure running high over 200 systolic. Patient denies any chest pain and dizziness lightheadedness. Patient is always at a low rate. Has come in for the same. No dizziness lightheadedness. 07/01/2023: Patient received a morning medications later than scheduled at about 11 AM today. Blood pressure was high then did come down. Also automatic blood pressure was done. Manual blood pressure showed blood pressure to drop. Below 120 systolic. Patient losartan will be changed 2 PM dose. Starting tomorrow. Continue with labetalol. Will change to 100 mg twice a day. Patient feels well otherwise. Active Medications Alprazolam (Alprazolam 0.25 Mg Tab) 0.25 mg PO BID PRN PRN Reason: Anxiety Last Admin: 07/01/23 01:14 Dose: 0.25 mg Apixaban (Apixaban 2.5 Mg Tablet) 2.5 mg PO BID [facility]; Protocol Last Admin: 07/01/23 10:58 Dose: 2.5 mg Atorvastatin Calcium (Atorvastatin 10 Mg Tab) 10 mg PO HS [facility] Last Admin: 06/30/23 22:08 Dose: 10 mg Brimonidine Tartrate (Brimonidine Tartrate 0.2% Drops 5 Ml Btl) 1 drops BOTH EYES DAILY [facility] Last Admin: 07/01/23 11:01 Dose: 1 drops Calcitriol (Calcitriol 0.25 Mcg Cap) 0.5 mcg PO MO NOREEN Dorzolamide/Timolol (Dorzolamide-Timolol 2.23%/0.68 10ml Btl) 1 drops BOTH EYES DAILY [facility] Last Admin: 07/01/23 11:03 Dose: 1 drops Ergocalciferol (Ergocalciferol 1,250 Mcg (50,000 Iu) Capsule) 1,250 mcg PO Q14D [facility] Sodium Chloride (Saline 0.9%) 1,000 mls @ 20 mls/hr IV .Q24H [facility] Last Admin: 06/30/23 15:32 Dose: 20 mls/hr Latanoprost (Latanoprost 0.005% Ophth Drops 2.5 Ml Btl) 1 drops BOTH EYES HS [facility] Last Admin: 06/30/23 22:12 Dose: 1 drops Levothyroxine Sodium (Levothyroxine 100 Mcg Tab) 100 mcg PO MOTUWETHFR [facility] Losartan Potassium (Losartan 50 Mg Tab) 50 mg PO HS [facility] Mirtazapine (Mirtazapine 15 Mg Tab) 15 mg PO HS [facility] Last Admin: 06/30/23 22:08 Dose: 15 mg Mycophenolate Mofetil (Mycophenolate Mofetil 500 Mg Tab) 500 mg PO BID [facility] Last Admin: 07/01/23 10:59 Dose: 500 mg Naloxone HCl (Naloxone 0.4 Mg/Ml 1 Ml Vial) 0.2 mg IV Q2M PRN PRN Reason: Opioid Reversal Triamcinolone Acetonide (Triamcinolone 0.1% Cream 80 Gm Tube) 1 applic TOPICAL BID PRN; Protocol PRN Reason: Rash Verapamil HCl (Verapamil Sr 240 Mg Tablet.Er) 240 mg PO DAILY [facility] Last Admin: 07/01/23 11:00 Dose: 240 mg Social history: Lives alone. Patient stopped smoking many years ago. Smoked for about 20 years. No alcohol. Physical examination: VITAL SIGNS: 98, 52, 20, 116/58, 97% room air GENERAL: Sitting on edge of bed, comfortable EYES: Pupils equal. Conjunctiva normal. HEENT: External appearance of nose and ears normal, oral cavity grossly normal. NECK: JVD not raised; masses not palpable. HEART: First and second heart sounds are normal; no edema. LUNGS: Respiratory rate normal; clear to auscultation. ABDOMEN: Soft, nontender, liver spleen not palpable, no masses palpable. PSYCH: Alert and oriented x3; mood and affect normal. MUSCULOSKELETAL:No Clubbing/cyanosis;muscles-grossly intact. OA. Loss of muscle mass prominent bones INVESTIGATIONS, reviewed in the clinical context: TSH 1.5 06/30/2023: White count 5.7 hemoglobin 11.2 platelets 386 potassium 4.7 BUN 30 creatinine 1.9 to Assessment and plan: -Essential hypertension uncontrolled with systolic blood pressure greater than 200. This morning dropped to below 120 systolic. Continue home dose of verapamil ER 240 mg a day and losartan . 50 mg daily. Losartan to be changed to daily at bedtime starting tomorrow. Blood pressure drop. Cutback labetalol 200 mg twice a day. Patient is known to Dr. Ding from nephrology. 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 Attention supplements -Chronic vascular disc, type unknown CellCept -Chronic urinary stress incontinence -Moderate protein calorie malnutrition Ensure. Consult dietitian Back dose of labetalol 200 mg twice a day. Change losartan to daily at bedtime starting tomorrow. 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 Recieved both covid vaccines, 2nd dose around History of Any Multi-Drug Resistant Organisms: None Reported Past Surgical History: Appendectomy, Hysterectomy, Orthopedic Surgery Additional Past Surgical History / Comment(s): left ankle, left hip surgery x 2017 Past Anesthesia/Blood Transfusion Reactions: Postoperative Nausea & Vomiting (PONV) Past Psychological History: No Psychological Hx Reported Smoking Status: Former smoker Past Alcohol Use History: Daily Past Drug Use History: None Reported
[2023-07-01] MEDS: SODIUM CHLORIDE 0.9% 1,000 ML IV SCH (15:33)
[2023-07-01] MEDS: ATORVASTATIN 10 MG TAB PO SCH (21:48)
[2023-07-01] MEDS: MIRTAZAPINE 15 MG TAB PO SCH (21:48)
[2023-07-01] MEDS: LABETALOL 100 MG TAB PO SCH (21:48)
[2023-07-01] MEDS: LATANOPROST 0.005% OPHTH DROPS 2.5 ML BTL BOTH EYES SCH (21:49)
[2023-07-02] MEDS ORDERED: LEVOTHYROXINE 100 MCG TAB PO SCH (06:30)
[2023-07-02 09:10] VITALS: RESP 17; TEMP 98.4
[2023-07-02] MEDS: LABETALOL 100 MG TAB PO SCH (09:25)
[2023-07-02] MEDS: BRIMONIDINE TARTRATE 0.2% DROPS 5 ML BTL BOTH EYES SCH (09:25)
[2023-07-02] MEDS: APIXABAN 2.5 MG TABLET PO SCH (09:25)
[2023-07-02 11:32] VITALS: BP 162/78; PULSE 100; BMI 17.9
[2023-07-02] MEDS: VERAPAMIL SR 240 MG TABLET.ER PO SCH (12:23)
--- NOTE | 2023-07-02 13:49 | P.NPCON ---
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 Patient is maintained on CellCept. She was admitted to the hospital with complaints of uncontrolled blood pressure. No significant change in diet or other medications. Systolic blood pressure was in the 200 range upon admission. Home dose of Cozaar and verapamil is continued and labetalol was added at 200 mg twice a day. Blood pressure had dropped to systolic in the 90s and therefore the dose was decreased 200 mg twice a day. This morning systolic blood pressure is 1 62 mmHg. Patient feels well and wants to go home. Serum creatinine slightly elevated at 1.9 from baseline of about 1.3-1.4 mg/dL. 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 Recieved both covid vaccines, 2nd dose around History of Any Multi-Drug Resistant Organisms: None Reported Past Surgical History: Appendectomy, Hysterectomy, Orthopedic Surgery Additional Past Surgical History / Comment(s): left ankle, left hip surgery x 2017 Past Anesthesia/Blood Transfusion Reactions: Postoperative Nausea & Vomiting (PONV) Past Psychological History: No Psychological Hx Reported Smoking Status: Former smoker Past Alcohol Use History: Daily Past Drug Use History: None Reported - Past Family History Mother Family Medical History: Myocardial Infarction ([place]) Additional Family Medical History / Comment(s): mother passed 5 at 52 from a [place] Father Family Medical History: CVA/TIA Additional Family Medical History / Comment(s): father from stroke Medications and Allergies Home Medications Medication Instructions Recorded Confirmed Type mycophenolate mofetiL [Cellcept] 500 mg PO BID 09/24/15 06/30/23 History Levothyroxine Sodium 100 mcg PO MOTUWETHFR 10/11/18 06/30/23 History ALPRAZolam [Xanax] 0.25 mg PO BID PRN 10/30/18 06/30/23 History Apixaban [Eliquis] 2.5 mg PO BID 11/05/20 06/30/23 History Latanoprost [Xalatan 0.005%] 1 drop BOTH EYES HS 11/05/20 06/30/23 History Brimonidine Tartrate [Alphagan P 1 drop BOTH EYES DAILY 08/27/21 06/30/23 History 0.2% Ophth Soln] Ergocalciferol (Vitamin D2) 1,250 mcg PO Q14D 06/07/23 06/30/23 History [Drisdol (50,000 Iu)] Iron 18 mg PO DAILY 06/07/23 06/30/23 History Mirtazapine [Remeron] 15 mg PO HS 06/07/23 06/30/23 History Simvastatin [Zocor] 20 mg PO HS 06/07/23 06/30/23 History Triamcinolone 0.1% Cream [Kenalog 1 applic TOPICAL BID PRN 06/07/23 06/30/23 History 0.1% Cream] Verapamil HCl [Verapamil ER] 240 mg PO DAILY 06/07/23 06/30/23 History calcitrioL [Calcitriol] 0.5 mcg PO MO 06/07/23 06/30/23 History Dorzolamide-Timol 2.23%/0.68% 1 drop BOTH EYES DAILY 06/30/23 06/30/23 History [Cosopt] Losartan Potassium 50 mg PO HS #0 07/01/23 06/30/23 Rx Labetalol [Trandate] 100 mg PO BID #60 tab 07/02/23 Rx Losartan [Cozaar] 50 mg PO HS tab 07/02/23 Rx Allergies Allergy/AdvReac Type Severity Reaction Status Date / Time No Known Allergies Allergy Verified 06/30/23 16:26 Physical Exam Vitals: Vital Signs Temp Pulse Pulse Resp BP BP Pulse Ox 07/02/23 11:26 98.4 F 100 17 162/78 94 L 07/02/23 08:00 98.4 F 100 17 172/78 93 L 07/02/23 04:00 98.2 F 84 18 118/71 96 07/02/23 00:00 90 18 166/84 95 07/01/23 20:00 97.8 F 70 18 140/74 96 07/01/23 18:34 74 18 108/76 95 07/01/23 17:56 48 L 20 104/48 96 07/01/23 17:00 50 L 18 98/46 98 01/07/24 16:03 62 18 105/59 97 07/01/23 15:31 64 18 98/56 96 07/01/23 14:10 52 L 20 85/48 97 Intake and Output 07/01/23 07/02/23 07/02/23 22:59 06:59 14:59 Intake Total 240 Balance 240 Intake: Oral 240 Other: # Voids 1 Weight 40.37 kg Patient is awake, comfortable, in no acute distress Examination of the heart S1 and S2 Examination of the lungs bilateral breath sounds are heard Abdomen is soft nontender Examination lower extremities shows no evidence of edema MEDICAL STAFF PHYSICIAN exam grossly intact Results - Lab Results Most recent lab results Calcium 9.0 mg/dL (8.4-10.2) 06/30/23 12:38 06/30/23 12:38 06/30/23 12:38 Assessment and Plan Assessment: 1. Acute kidney injury associated with fluctuation in blood pressure. 2. 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 Uncontrolled hypertension, better controlled. Labetalol at 100 mg twice a day added this admission 4. CK D mineral bone disorder Plan: Okay to continue with current medications. We will follow-up as outpatient in 2-3 days time. Encourage increased oral intake particularly fluids.
--- NOTE | 2023-07-02 15:13 | P.DS ---
Providers Date of admission: 06/30/23 15:19 Expected date of discharge: 07/02/23 Attending physician: Gus Paul Consults: 07/01/23 18:07 Consult Physician Routine Consulting Provider: La Ding Consult Reason/Comments: htn; blood pressure; see's pt in office Do you want consulting provider notified?: Yes Primary care physician: [facility] Course: Chief Complaint: Uncontrolled blood pressure This is a pleasant 88-year-old patient, who is following with Dr. Wiley. chronic medical conditions include atrial fibrillation, GERD, hyperlipidemia, osteomyelitis, CK D, vasculitis. Patient is followed by utility worker woolen mill Dr. Ding. For last few days patient blood pressure running high over 200 systolic. Patient denies any chest pain and dizziness lightheadedness. Patient is always at a low rate. Has come in for the same. No dizziness lightheadedness. 07/01/2023: Patient received a morning medications later than scheduled at about 11 AM today. Blood pressure was high then did come down. Also automatic blood pressure was done. Manual blood pressure showed blood pressure to drop. Below 120 systolic. Patient losartan will be changed 2 PM dose. Starting tomorrow. Continue with labetalol. Will change to 100 mg twice a day. Patient feels well otherwise. 07/02/2023: Systolic blood pressure manually this morning around 160. We'll discharge in libido 100 mg twice a day. Discussed care with the patient daughter the bedside. Patient will follow with Dr. Ding. Nicole blood pressure check and log. Questions answered Discussion and discharge planning more than 35 minutes Social history: Lives alone. Patient stopped smoking many years ago. Smoked for about 20 years. No alcohol. Physical examination: VITAL SIGNS: I gave 0.4, 100, 17, 1 62 x 78, 94% room air GENERAL: Laying in bed comfortable EYES: Pupils equal. Conjunctiva normal. HEENT: External appearance of nose and ears normal, oral cavity grossly normal. NECK: JVD not raised; masses not palpable. HEART: First and second heart sounds are normal; no edema. LUNGS: Respiratory rate normal; clear to auscultation. ABDOMEN: Soft, nontender, liver spleen not palpable, no masses palpable. PSYCH: Alert and oriented x3; mood and affect normal. MUSCULOSKELETAL:No Clubbing/cyanosis;muscles-grossly intact. OA. Loss of muscle mass prominent bones INVESTIGATIONS, reviewed in the clinical context: TSH 1.5 06/30/2023: White count 5.7 hemoglobin 11.2 platelets 386 potassium 4.7 BUN 30 creatinine 1.9 to Assessment and plan: -Essential hypertension uncontrolled with systolic blood pressure greater than 200. This morning dropped to below 120 systolic. Continue home dose of verapamil ER 240 mg a day and losartan . 50 mg daily. Lo sartan to be changed to daily at bedtime starting tomorrow. Started- labetalol 100 mg twice a day. Follow-up with Dr. Ding -Chronic kidney disease, stage IV possibly nephrosclerosis Follow renal function -Normocytic anemia secondary to chronic kidney disease -Hypothyroid Levothyroxin. 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 Continue supplements -Chronic vascular disc, type unknown CellCept -Chronic urinary stress incontinence -Moderate protein calorie malnutrition Ensure. 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 Recieved both covid vaccines, 2nd dose around History of Any Multi-Drug Resistant Organisms: None Reported Past Surgical History: Appendectomy, Hysterectomy, Orthopedic Surgery Additional Past Surgical History / Comment(s): left ankle, left hip surgery x 2017 Past Anesthesia/Blood Transfusion Reactions: Postoperative Nausea & Vomiting (PONV) Past Psychological History: No Psychological Hx Reported Smoking Status: Former smoker Past Alcohol Use History: Daily Past Drug Use History: None Reported Plan - Discharge Summary New Discharge Prescriptions: New Labetalol [Trandate] 100 mg PO BID #60 tab Losartan [Cozaar] 50 mg PO HS tab Continue mycophenolate mofetiL [Cellcept] 500 mg PO BID Levothyroxine Sodium 100 mcg PO MOTUWETHFR ALPRAZolam [Xanax] 0.25 mg PO BID PRN PRN Reason: Anxiety Latanoprost [Xalatan 0.005%] 1 drop BOTH EYES HS Apixaban [Eliquis] 2.5 mg PO BID Triamcinolone 0.1% Cream [Kenalog 0.1% Cream] 1 applic TOPICAL BID PRN PRN Reason: Rash Simvastatin [Zocor] 20 mg PO HS Brimonidine Tartrate [Alphagan P 0.2% Ophth Soln] 1 drop BOTH EYES DAILY calcitrioL [Calcitriol] 0.5 mcg PO MO Iron 18 mg PO DAILY Ergocalciferol (Vitamin D2) [Drisdol (50,000 Iu)] 1,250 mcg PO Q14D Mirtazapine [Remeron] 15 mg PO HS Verapamil HCl [Verapamil ER] 240 mg PO DAILY Dorzolamide-Timol 2.23%/0.68% [Cosopt] 1 drop BOTH EYES DAILY Changed Losartan Potassium 50 mg PO HS #0 Discharge Medication List mycophenolate mofetiL [Cellcept] 500 mg PO BID 09/24/15 [History] Levothyroxine Sodium 100 mcg PO MOTUWETHFR 10/11/18 [History] ALPRAZolam [Xanax] 0.25 mg PO BID PRN 10/30/18 [History] Apixaban [Eliquis] 2.5 mg PO BID 11/05/20 [History] Latanoprost [Xalatan 0.005%] 1 drop BOTH EYES HS 11/05/20 [History] Brimonidine Tartrate [Alphagan P 0.2% Ophth Soln] 1 drop BOTH EYES DAILY 08/27/21 [History] Ergocalciferol (Vitamin D2) [Drisdol (50,000 Iu)] 1,250 mcg PO Q14D 06/07/23 [History] Iron 18 mg PO DAILY 06/07/23 [History] Mirtazapine [Remeron] 15 mg PO HS 06/07/23 [History] Simvastatin [Zocor] 20 mg PO HS 06/07/23 [History] Triamcinolone 0.1% Cream [Kenalog 0.1% Cream] 1 applic TOPICAL BID PRN 06/07/23 [History] Verapamil HCl [Verapamil ER] 240 mg PO DAILY 06/07/23 [History] calcitrioL [Calcitriol] 0.5 mcg PO MO 06/07/23 [History] Dorzolamide-Timol 2.23%/0.68% [Cosopt] 1 drop BOTH EYES DAILY 06/30/23 [History] Losartan Potassium 50 mg PO HS #0 07/01/23 [Rx] Labetalol [Trandate] 100 mg PO BID #60 tab 07/02/23 [Rx] Losartan [Cozaar] 50 mg PO HS tab 07/02/23 [Rx] Follow up Appointment(s)/Referral(s): La Ding MD [STAFF PHYSICIAN] - 1 Week (July 19 9:20) Mannie Wiley DO [Primary Care Provider] - 1 Week (office will call you with appt time) [facility], [NON-STAFF] - Patient Instructions/Handouts: Chronic Hypertension (DC) Activity/Diet/Wound Care/Special Instructions: heart healthy diet activity limited until follow up Discharge Disposition: HOME WITH HOME HEALTH SERVICES
[2023-07-02] MEDS ORDERED: LOSARTAN 50 MG TAB PO SCH (21:00)
[2023-07-07] MEDS ORDERED: ERGOCALCIFEROL 1,250 MCG (50,000 IU) CAPSULE PO SCH (09:00)
== END 2023-07-02 12:41 | disposition home health service (06) | DRG 683 ==
LOC: EC 11:33 → 3SCARD 15:19
PROVIDERS: ADMIT Hospitalist; ATTEND Hospitalist
DX: I12.9 Hypertensive chronic kidney disease with stage 1 through stage 4 chronic kidney disease, or unspecified chronic kidney disease (principal); E44.0 Moderate protein-calorie malnutrition; N17.9 Acute kidney failure, unspecified; N18.4 Chronic kidney disease, stage 4 (severe); M86.9 Osteomyelitis, unspecified; D63.1 Anemia in chronic kidney disease; E83.9 Disorder of mineral metabolism, unspecified; I77.82 Antineutrophilic cytoplasmic antibody [ANCA] vasculitis; I48.91 Unspecified atrial fibrillation; E78.5 Hyperlipidemia, unspecified; E03.9 Hypothyroidism, unspecified; K21.9 Gastro-esophageal reflux disease without esophagitis; N39.3 Stress incontinence (female) (male); M19.90 Unspecified osteoarthritis, unspecified site; F41.9 Anxiety disorder, unspecified; F51.04 Psychophysiologic insomnia; Z79.01 Long term (current) use of anticoagulants; Z79.890 Hormone replacement therapy; Z79.624 Long term (current) use of inhibitors of nucleotide synthesis; Z79.899 Other long term (current) drug therapy; Z87.891 Personal history of nicotine dependence; Z86.19 Personal history of other infectious and parasitic diseases; Z71.3 Dietary counseling and surveillance; Z82.49 Family history of ischemic heart disease and other diseases of the circulatory system
CPT/HCPCS: 36415; 80048; 84443; 85025; 99285

== ENCOUNTER 2023-07-25 16:44 | Inpatient (IN) | payer MEDICARE, BC ==
[2023-07-25] MEDS: SODIUM CHLORIDE 0.9% 1,000 ML IV STA (17:00)
[2023-07-25 17:50] LABS: Basophils % (A) 0 %; Eosinophils # (A) 0.2 k/uL (0-0.7); Eosinophils % (A) 3 %; HCT 25.5 % (34.0-46.0); Hypochromasia Marked; Lymphocytes # (A) 0.4 k/uL (1.0-4.8); Lymphocytes % (A) 8 %; MCH 28.1 pg (25.0-35.0); MCHC 30.7 g/dL (31.0-37.0); MCV 91.6 fL (80.0-100.0); Mean Platelet Volume 7.7; Monocytes # (A) 0.2 k/uL (0-1.0); Monocytes % (A) 4 %; Neutrophils # (A) 4.5 k/uL (1.3-7.7); Neutrophils % (A) 85 %; Platelet Count 279 k/uL (150-450); RBC 2.78 m/uL (3.80-5.40); RDW 15.7 % (11.5-15.5); WBC 5.3 k/uL (3.8-10.6)
[2023-07-25 17:59] LABS: HGB 7.8 gm/dL (11.4-16.0)
[2023-07-25 18:00] LABS: ALT 28 U/L (4-34); AST 44 U/L (14-36); African American GFR (CKD) 20 (>60 ml/min/1.73 sqM); Albumin 2.8 g/dL (3.5-5.0); Alkaline Phosphatase 69 U/L (38-126); Anion Gap 6 mmol/L; Blood Urea Nitrogen 35 mg/dL (7-17); Calcium 7.8 mg/dL (8.4-10.2); Carbon Dioxide 15 mmol/L (22-30); Chloride 116 mmol/L (98-107); Creatine Kinase 50 U/L (30-135); Glucose 146 mg/dL (74-99); Magnesium 1.6 mg/dL (1.6-2.3); Non-African American GFR(CKD) 17 (>60 ml/min/1.73 sqM); Potassium 4.5 mmol/L (3.5-5.1); Sodium 137 mmol/L (137-145); Total Bilirubin 0.3 mg/dL (0.2-1.3); Total Protein 5.2 g/dL (6.3-8.2)
--- NOTE | 2023-07-25 18:07 | XR ---
EXAMINATION TYPE: XR chest 1V portable DATE OF EXAM: 07/25/2023 5:50 PM CLINICAL INDICATION:Female, 88 years old with history of weak; COMPARISON: Chest radiographs from 04/26/2022 TECHNIQUE: XR chest 1V portable Frontal view of the chest. FINDINGS: Lungs/Pleura: There is no evidence of pleural effusion, focal consolidation, or pneumothorax. Pulmonary vascularity: Unremarkable. Heart/mediastinum: Cardiomediastinal silhouette is prominent in size. The aorta appears tortuous, a finding usually associated with either atherosclerosis or systemic hypertension. Musculoskeletal: No acute osseous pathology. IMPRESSION: 1. No acute cardiopulmonary disease process. 2. COPD changes.
[2023-07-25 18:09] LABS: INR 1.1 (<1.2); NT-Pro-B-Type Natriuretic Pept 4210 pg/mL; Partial Thromboplastin Time 23.8 sec (22.0-30.0); Prothrombin Time 11.4 sec (10.0-12.5)
[2023-07-25] MEDS: fentaNYL (PF) 50 MCG/ML 2 ML AMP IVP STA (18:11)
[2023-07-25] MEDS ORDERED: QUEtiapine 25 MG TAB PO PRN (18:42)
[2023-07-25] MEDS: METOPROLOL SUCCINATE (ER) 25 MG TAB.ER.24H PO SCH (18:49)
--- NOTE | 2023-07-25 19:46 | CT ---
EXAMINATION TYPE: CT chest wo con CT DLP: 1410 mGycm, Automated exposure control for dose reduction was used. DATE OF EXAM: 07/25/2023 7:01 PM COMPARISON: 09/24/2015 CLINICAL INDICATION:Female, 88 years old with history of fall, pain; PHH, weakness. low BP and recent falls TECHNIQUE: Multiple axial images were obtained through the chest. Sagittal and coronal reformats were created for review. Contrast used: mL of (None if empty) Oral contrast used: (None if empty) FINDINGS: LUNGS/ PLEURA: No focal consolidation, pneumothorax or pleural effusion. Left upper lobe peripheral s uspected atelectasis extending towards the pleural surface. AIRWAY: Mild bronchial wall thickening most pronounced in the lower lungs. HEART: Size within normal limits. MEDIASTINUM: No gross evidence of adenopathy. Large hiatal hernia is present. VASCULATURE: No aortic aneurysm. MUSCULOSKELETAL: No acute osseous abnormalities degeneration changes of the shoulders with joint spac e narrowing and osteophyte formation. Cortical step-off within the right rib [address] ep-off and right rib 9 near the costochondral junction. Compression deformities of the superior fifth and seventh vertebrae. SOFT TISSUES/LYMPH NODES: Unremarkable. LOWER NECK: No significant findings. UPPER ABDOMEN: No significant findings. IMPRESSION: 1. Nondisplaced right rib 6 and 9 fractures. Correlate with point tenderness. 2. Age-indeterminate Compression deformities of the fifth and seventh vertebrae superior endplate co rrelate with back pain. 3. Bronchial wall thickening in the predominantly in the lower lobes correlate for chronic aspiratio n/bronchitis. 4. Large hiatal hernia.
--- NOTE | 2023-07-25 20:05 | CT ---
EXAMINATION TYPE: CT brain cspine wo con CT DLP: 11/05/2020 mGycm, Automated exposure control for dose reduction was used. DATE OF EXAM: 07/25/2023 7:01 PM COMPARISON: 11/05/2020 CLINICAL INDICATION:Female, 88 years old with history of fall; weakness. low BP and recent falls TECHNIQUE: Brain: Multiple axial CT images of the brain were obtained without IV contrast. Cspine: Axial CT images from the skull base to the inferior aspect of T2 we obtained without intraven ous contrast. Coronal and sagittal reformatted images were also reviewed. FINDINGS: Brain: Extra-axial spaces: No abnormal extra-axial fluid collections. Ventricular system: Dilatation in proportion to cerebral atrophy. Cerebral parenchyma: Cerebral atrophy. No acute intraparenchymal hemorrhage or mass effect. The grajeda -white junction is well differentiated. Scattered hypoattenuating areas are seen within the white mat ter. Cerebellum: Unremarkable. Mass effect: No evidence of midline shift. Intracranial vasculature: unremarkable Soft tissues: Normal. Calvarium/osseous structures: No depressed skull fracture. Paranasal sinuses and mastoid air cells: Mild scattered mucosal thickening and or secretions. Visualized orbits: Bilateral aphakia Cervical spine: Fracture: None. Osseous structures: Multilevel degenerative disc disease changes with endplate spurring and disc oste ophyte complex's. Vertebral alignment: Within normal limits. Spinal canal/Neural Foramina: Disc osteophyte complexes at C6-C7 with at least mild spinal canal sten osis. No evidence for significant neural foraminal stenosis. Neck soft tissues: Prevertebral soft tissues are within normal limits. Other: The airway is patent. The lung apices are clear. IMPRESSION: 1. No acute intracranial process. 2. Nonspecific white matter changes, likely secondary to chronic small vessel ischemic disease. 3. No evidence of cervical spine fracture. 4. Mild multilevel degenerative disc disease.
--- NOTE | 2023-07-25 21:07 | ED ---
Weakness HPI - General Chief complaint: Weakness Stated complaint: Weakness Source: patient, EMS Mode of arrival: EMS - History of Present Illness Initial comments: 88-year-old female presents the emergency department with hypotension, bradycardia and weakness. Patient was recently hospitalized for accelerated hypertension. Her home blood pressure medication regiment had changed and she is now taking labetalol 100 mg twice a day, losartan 50 mg at 2 PM and verapamil 240 mg at bedtime. Patient has had increasing weakness. Yesterday she had a fall where she landed on her right chest wall. She is now complaining of chest wall pain. Today the patient's daughter checked her blood pressure and it was low. EMS found her to be hypotensive and bradycardic. They did give her several doses of push dose epi en route to the hospital. When questioning the patient there is a possibility that she may have taken double the dose of her labetalol. She is supposed to cut her tablet in half however the patient remembers taking 2 half tablets today on accident. She denies any chest pain. No shortness of breath. Denies head injury. Patient is on anticoagulation. No other alleviating, precipitating or modifying factors - Related Data Home Medications Medication Instructions Recorded Confirmed mycophenolate mofetiL [Cellcept] 500 mg PO BID 09/24/15 07/25/23 Levothyroxine Sodium 100 mcg PO MOTUWETHFR 10/11/18 07/25/23 Apixaban [Eliquis] 2.5 mg PO BID 11/05/20 07/25/23 Latanoprost [Xalatan 0.005%] 1 drop BOTH EYES HS 11/05/20 07/25/23 Brimonidine Tartrate [Alphagan P 1 drop BOTH EYES DAILY 08/27/21 07/25/23 0.2% Ophth Soln] Ergocalciferol (Vitamin D2) 1,250 mcg PO Q14D 06/07/23 07/25/23 [Drisdol (50,000 Iu)] Iron 18 mg PO DAILY 06/07/23 07/25/23 Mirtazapine [Remeron] 15 mg PO HS 06/07/23 07/25/23 Simvastatin [Zocor] 20 mg PO HS 06/07/23 07/25/23 Triamcinolone 0.1% Cream [Kenalog 1 applic TOPICAL BID PRN 06/07/23 07/25/23 0.1% Cream] calcitrioL 0.5 mcg PO MO 06/07/23 07/25/23 Dorzolamide-Timol 2.23%/0.68% 1 drop BOTH EYES DAILY 06/30/23 07/25/23 [Cosopt] Previous Rx's Medication Instructions Recorded Losartan [Cozaar] 12.5 mg PO DAILY@1600 #30 tab 07/29/23 Sodium Bicarbonate Tab 650 mg PO TID #60 tab 07/29/23 Verapamil Sr [Isoptin Sr] 120 mg PO DAILY #30 tab 07/29/23 carvediloL [Coreg] 6.25 mg PO BID-W/MEALS #60 tab 07/29/23 Allergies Allergy/AdvReac Type Severity Reaction Status Date / Time No Known Allergies Allergy Verified 06/30/23 16:26 Review of Systems ROS Statement: Those systems with pertinent positive or pertinent negative responses have been documented in the HPI. ROS Other: All systems not noted in ROS Statement are negative. 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 Recieved both covid vaccines, 2nd dose around History of Any Multi-Drug Resistant Organisms: None Reported Past Surgical History: Appendectomy, Hysterectomy, Orthopedic Surgery Additional Past Surgical History / Comment(s): left ankle, left hip surgery x 2017 Past Anesthesia/Blood Transfusion Reactions: Postoperative Nausea & Vomiting (PONV) Past Psychological History: No Psychological Hx Reported Smoking Status: Former smoker Past Alcohol Use History: Daily Past Drug Use History: None Reported - Past Family History Mother Family Medical History: Myocardial Infarction (ME) Additional Family Medical History / Comment(s): mother passed 5 at 52 from a ME Father Family Medical History: CVA/TIA Additional Family Medical History / Comment(s): father from stroke General Exam General appearance: alert, in no apparent distress Head exam: Present: atraumatic, normocephalic, normal inspection Eye exam: Present: normal appearance, PERRL, EOMI. Absent: scleral icterus, conjunctival injection, periorbital swelling ENT exam: Present: normal exam, mucous membranes moist Neck exam: Present: normal inspection. Absent: tenderness, meningismus, lymphadenopathy Respiratory exam: Present: normal lung sounds bilaterally. Absent: respiratory distress, wheezes, rales, rhonchi, stridor Cardiovascular Exam: Present: normal rhythm, bradycardia, normal heart sounds. Absent: systolic murmur, diastolic murmur, rubs, gallop, clicks GI/Abdominal exam: Present: soft, normal bowel sounds. Absent: distended, tenderness, guarding, rebound, rigid Extremities exam: Present: normal inspection, full ROM, normal capillary refill. Absent: tenderness, pedal edema, joint swelling, calf tenderness Back exam: Present: normal inspection Neurological exam: Present: alert, oriented X3, CN II-XII intact Psychiatric exam: Present: normal affect, normal mood Skin exam: Present: warm, dry, intact, normal color. Absent: rash Course Vital Signs 07/25/23 07/25/23 07/25/23 16:44 16:50 16:53 Temperature 96.9 F L Pulse Rate 50 L 47 L 47 L Respiratory 20 20 23 Rate Blood Pressure 77/47 74/42 74/42 O2 Sat by Pulse 93 L 95 95 Oximetry 07/25/23 07/25/23 07/25/23 17:00 17:10 17:20 Temperature Pulse Rate 46 L 43 L 43 L Respiratory 22 21 21 Rate Blood Pressure 79/46 79/44 73/45 O2 Sat by Pulse 88 L 95 94 L Oximetry 07/25/23 07/25/23 07/25/23 17:30 17:40 17:50 Temperature Pulse Rate 42 L 43 L 41 L Respiratory 23 20 19 Rate Blood Pressure 75/49 86/47 87/52 O2 Sat by Pulse 79 L 96 96 Oximetry 07/25/23 07/25/23 07/25/23 18:00 18:10 18:20 Temperature Pulse Rate 44 L 46 L 47 L Respiratory 20 19 11 L Rate Blood Pressure 92/55 99/51 99/52 O2 Sat by Pulse 96 92 L 82 L Oximetry 07/25/23 07/25/23 07/25/23 18:40 18:50 19:00 Temperature Pulse Rate 49 L 58 L 53 L Respiratory 15 14 15 Rate Blood Pressure 108/58 107/57 119/67 O2 Sat by Pulse 95 94 L 91 L Oximetry 07/25/23 07/25/23 07/25/23 19:10 19:20 19:30 Temperature Pulse Rate 60 60 61 Respiratory 14 17 13 Rate Blood Pressure 128/62 130/64 138/61 O2 Sat by Pulse 96 94 L 94 L Oximetry 07/25/23 07/25/23 07/25/23 19:40 20:00 20:30 Temperature Pulse Rate 62 66 65 Respiratory 13 16 17 Rate Blood Pressure 132/66 139/108 141/68 O2 Sat by Pulse 94 L 95 95 Oximetry 07/25/23 07/25/23 07/25/23 21:00 21:30 22:00 Temperature Pulse Rate 65 64 64 Respiratory 16 15 15 Rate Blood Pressure 142/79 142/66 136/77 O2 Sat by Pulse 94 L 94 L 95 Oximetry 07/26/23 07/26/23 07/26/23 02:00 06:00 08:35 Temperature Pulse Rate 68 80 95 Respiratory 18 18 18 Rate Blood Pressure 163/76 170/83 173/85 O2 Sat by Pulse 95 95 98 Oximetry 07/26/23 07/26/23 07/26/23 11:00 12:52 15:33 Temperature Pulse Rate 88 75 59 L Respiratory 18 18 18 Rate Blood Pressure 173/93 169/101 152/95 O2 Sat by Pulse 96 96 96 Oximetry 07/26/23 17:45 Temperature Pulse Rate 108 H Respiratory 18 Rate Blood Pressure 164/88 O2 Sat by Pulse 97 Oximetry Medical Decision Making - Medical Decision Making Was pt. sent in by a medical professional or institution (Dr. PA, [employer]GER, urgent care, hospital, or senior care...) When possible be specific @ -No Did you speak to anyone other than the patient for history (EMS, parent, family, police, friend...)? What history was obtained from this source @ -Spoke with EMS Did you review nursing and triage notes (agree or disagree)? Why? @ -I reviewed and agree with nursing and triage notes Were old charts reviewed (outside hosp., previous admission, EMS record, old EKG, old radiological studies, urgent care reports/EKG's, senior care records)? Report findings @ -I reviewed the patient's pharmacy record to identify her current medications Differential Diagnosis (chest pain, altered mental status, abdominal pain women, abdominal pain men, vaginal bleeding, weakness, fever, dyspnea, syncope, headache, dizziness, GI bleed, back pain, seizure, CVA, palpatations, mental health, musculoskeletal)? @ -Differential Weakness: Hypoglycemia, shock, sepsis, hyponatremia, anemia, infection, ME, ETOH, adverse medicine reaction, overdose, stroke, this is not meant to be an all-inclusive list. EKG interpreted by me (3pts min.). @ -Yes and demonstrates bradycardia with a rate of 49. QRS 96. QTc of 453. No acute ST segment elevations or depressions X-rays interpreted by me (1pt min.). @ -None done CT interpreted by me (1pt min.). @ -None done U/S interpreted by me (1pt. min.). @ -None done What testing was considered but not performed or refused? (CT, X-rays, U/S, labs)? Why? @ -None What meds were considered but not given or refused? Why? @ -Atropine Did you discuss the management of the patient with other professionals ( professionals i.e. , PA, [employer]GER, lab, RT, psych nurse, social welfare administrator, after school driver, teacher, senior administrative services officer, case monitor)? Give summary @ -Spoke with Dr. Paul for admission Was smoking cessation discussed for >3mins.? @ -No Was critical care preformed (if so, how long)? @ -No Were there social determinants of health that impacted care today? How? (Homelessness, low income, unemployed, alcoholism, drug addiction, transportation, low edu. Level, literacy, decrease access to med. care, half-way, rehab)? @ -No Was there de-escalation of care discussed even if they declined (Discuss DNR or withdrawal of care, Hospice)? DNR status @ -No What co-morbidities impacted this encounter? (DM, HTN, Smoking, COPD, CAD, Cancer, CVA, ARF, Chemo, Hep., AIDS, mental health diagnosis, sleep apnea, morbid obesity)? @ -Hypertension Was patient admitted / discharged? Hospital course, mention meds given and rout e, prescriptions, significant lab abnormalities, going to OR and other pertinent info. @ -Admitted. Upon arrival patient was placed into trauma 1. Thorough history and physical exam was performed. Patient found to be hypotensive and bradycardic. She is initiated on medications. Laboratory studies are conducted. Patient does have resolution in her vital signs. I recommended admission for further observation for which the patient was agreeable Undiagnosed new problem with uncertain prognosis? @ -No Drug Therapy requiring intensive monitoring for toxicity (Heparin, Nitro, Insulin, Cardizem)? @ -No Were any procedures done? @ -No Diagnosis/symptom? @ -Acute fall, hypotension, bradycardia, possible unintentional medication overdose Acute, or Chronic, or Acute on Chronic? @ -Acute Uncomplicated (without systemic symptoms) or Complicated (systemic symptoms)? @ -Complicated Side effects of treatment? @ -No Exacerbation, Progression, or Severe Exacerbation? @ -No Poses a threat to life or bodily function? How? (Chest pain, USA, ME, pneumonia, PE, COPD, DKA, ARF, appy, cholecystitis, CVA, Diverticulitis, Homicidal, Suicidal, threat to staff... and all critical care pts) @ -Yes patient had very unstable vital signs for EMS - Lab Data Result diagrams: 07/26/23 06:12 07/28/23 07:34 Lab Results 07/25/23 07/25/23 07/25/23 Range/Units 17:20 17:20 17:20 WBC 5.3 (3.8-10.6) k/uL RBC 2.78 L (3.80-5.40) m/uL Hgb 7.8 L D (11.4-16.0) gm/dL Hct 25.5 L (34.0-46.0) % MCV 91.6 (80.0-100.0) fL MCH 28.1 (25.0-35.0) pg MCHC 30.7 L (31.0-37.0) g/dL RDW 15.7 H (11.5-15.5) % Plt Count 279 (150-450) k/uL MPV 7.7 Neutrophils % 85 % Lymphocytes % 8 % Monocytes % 4 % Eosinophils % 3 % Basophils % 0 % Neutrophils # 4.5 (1.3-7.7) k/uL Lymphocytes # 0.4 L (1.0-4.8) k/uL Monocytes # 0.2 (0-1.0) k/uL Eosinophils # 0.2 (0-0.7) k/uL Basophils # 0.0 (0-0.2) k/uL Hypochromasia Marked PT 11.4 (10.0-12.5) sec INR 1.1 (<1.2) APTT 23.8 (22.0-30.0) sec Sodium 137 (137-145) mmol/L Potassium 4.5 (3.5-5.1) mmol/L Chloride 116 H (98-107) mmol/L Carbon Dioxide 15 L (22-30) mmol/L Anion Gap 6 mmol/L BUN 35 H (7-17) mg/dL Creatinine 2.39 H (0.52-1.04) mg/dL Est GFR (CKD-EPI)AfAm 20 (>60 ml/min/1.73 sqM) Est GFR (CKD-EPI)NonAf 17 (>60 ml/min/1.73 sqM) Glucose 146 H (74-99) mg/dL Plasma Lactic Acid King (0.7-2.0) mmol/L Calcium 7.8 L (8.4-10.2) mg/dL Magnesium 1.6 (1.6-2.3) mg/dL Total Bilirubin 0.3 (0.2-1.3) mg/dL AST 44 H (14-36) U/L ALT 28 (4-34) U/L Alkaline Phosphatase 69 (38-126) U/L Creatine Kinase 50 (30-135) U/L Troponin I (0.000-0.034) ng/mL NT-Pro-B Natriuret Pep 4210 pg/mL Total Protein 5.2 L (6.3-8.2) g/dL Albumin 2.8 L (3.5-5.0) g/dL TSH (0.465-4.680) mIU/L 07/25/23 07/25/23 07/25/23 Range/Units 17:20 17:20 17:20 WBC (3.8-10.6) k/uL RBC (3.80-5.40) m/uL Hgb (11.4-16.0) gm/dL Hct (34.0-46.0) % MCV (80.0-100.0) fL MCH (25.0-35.0) pg MCHC (31.0-37.0) g/dL RDW (11.5-15.5) % Plt Count (150-450) k/uL MPV Neutrophils % % Lymphocytes % % Monocytes % % Eosinophils % % Basophils % % Neutrophils # (1.3-7.7) k/uL Lymphocytes # (1.0-4.8) k/uL Monocytes # (0-1.0) k/uL Eosinophils # (0-0.7) k/uL Basophils # (0-0.2) k/uL Hypochromasia PT (10.0-12.5) sec INR (<1.2) APTT (22.0-30.0) sec Sodium (137-145) mmol/L Potassium (3.5-5.1) mmol/L Chloride (98-107) mmol/L Carbon Dioxide (22-30) mmol/L Anion Gap mmol/L BUN (7-17) mg/dL Creatinine (0.52-1.04) mg/dL Est GFR (CKD-EPI)AfAm (>60 ml/min/1.73 sqM) Est GFR (CKD-EPI)NonAf (>60 ml/min/1.73 sqM) Glucose (74-99) mg/dL Plasma Lactic Acid King 1.6 (0.7-2.0) mmol/L Calcium (8.4-10.2) mg/dL Magnesium (1.6-2.3) mg/dL Total Bilirubin (0.2-1.3) mg/dL AST (14-36) U/L ALT (4-34) U/L Alkaline Phosphatase (38-126) U/L Creatine Kinase (30-135) U/L Troponin I <0.012 (0.000-0.034) ng/mL NT-Pro-B Natriuret Pep pg/mL Total Protein (6.3-8.2) g/dL Albumin (3.5-5.0) g/dL TSH 3.920 (0.465-4.680) mIU/L 07/26/23 07/26/23 07/26/23 Range/Units 06:12 06:12 06:12 WBC 4.1 (3.8-10.6) k/uL RBC 2.85 L (3.80-5.40) m/uL Hgb 7.9 L (11.4-16.0) gm/dL Hct 26.1 L (34.0-46.0) % MCV 91.3 (80.0-100.0) fL MCH 27.8 (25.0-35.0) pg MCHC 30.5 L (31.0-37.0) g/dL RDW 15.7 H (11.5-15.5) % Plt Count 261 (150-450) k/uL MPV 7.6 Neutrophils % 65 % Lymphocytes % 26 % Monocytes % 5 % Eosinophils % 2 % Basophils % 0 % Neutrophils # 2.7 (1.3-7.7) k/uL Lymphocytes # 1.1 (1.0-4.8) k/uL Monocytes # 0.2 (0-1.0) k/uL Eosinophils # 0.1 (0-0.7) k/uL Basophils # 0.0 (0-0.2) k/uL Hypochromasia Marked PT (10.0-12.5) sec INR (<1.2) APTT (22.0-30.0) sec Sodium 140 (137-145) mmol/L Potassium 4.2 (3.5-5.1) mmol/L Chloride 118 H (98-107) mmol/L Carbon Dioxide 15 L (22-30) mmol/L Anion Gap 7 mmol/L BUN 35 H (7-17) mg/dL Creatinine 2.25 H (0.52-1.04) mg/dL Est GFR (CKD-EPI)AfAm 22 (>60 ml/min/1.73 sqM) Est GFR (CKD-EPI)NonAf 19 (>60 ml/min/1.73 sqM) Glucose 68 L (74-99) mg/dL Plasma Lactic Acid King (0.7-2.0) mmol/L Calcium 8.5 (8.4-10.2) mg/dL Magnesium (1.6-2.3) mg/dL Total Bilirubin (0.2-1.3) mg/dL AST (14-36) U/L ALT (4-34) U/L Alkaline Phosphatase (38-126) U/L Creatine Kinase (30-135) U/L Troponin I <0.012 (0.000-0.034) ng/mL NT-Pro-B Natriuret Pep pg/mL Total Protein (6.3-8.2) g/dL Albumin (3.5-5.0) g/dL TSH (0.465-4.680) mIU/L 07/26/23 Range/Units 12:39 WBC (3.8-10.6) k/uL RBC (3.80-5.40) m/uL Hgb (11.4-16.0) gm/dL Hct (34.0-46.0) % MCV (80.0-100.0) fL MCH (25.0-35.0) pg MCHC (31.0-37.0) g/dL RDW (11.5-15.5) % Plt Count (150-450) k/uL MPV Neutrophils % % Lymphocytes % % Monocytes % % Eosinophils % % Basophils % % Neutrophils # (1.3-7.7) k/uL Lymphocytes # (1.0-4.8) k/uL Monocytes # (0-1.0) k/uL Eosinophils # (0-0.7) k/uL Basophils # (0-0.2) k/uL Hypochromasia PT (10.0-12.5) sec INR (<1.2) APTT (22.0-30.0) sec Sodium (137-145) mmol/L Potassium (3.5-5.1) mmol/L Chloride (98-107) mmol/L Carbon Dioxide (22-30) mmol/L Anion Gap mmol/L BUN (7-17) mg/dL Creatinine (0.52-1.04) mg/dL Est GFR (CKD-EPI)AfAm (>60 ml/min/1.73 sqM) Est GFR (CKD-EPI)NonAf (>60 ml/min/1.73 sqM) Glucose (74-99) mg/dL Plasma Lactic Acid King (0.7-2.0) mmol/L Calcium (8.4-10.2) mg/dL Magnesium (1.6-2.3) mg/dL Total Bilirubin (0.2-1.3) mg/dL AST (14-36) U/L ALT (4-34) U/L Alkaline Phosphatase (38-126) U/L Creatine Kinase (30-135) U/L Troponin I <0.012 (0.000-0.034) ng/mL NT-Pro-B Natriuret Pep pg/mL Total Protein (6.3-8.2) g/dL Albumin (3.5-5.0) g/dL TSH (0.465-4.680) mIU/L Disposition Clinical Impression: Hypotension, Bradycardia, CKD (chronic kidney disease), Fall, Rib fracture Disposition: ADMITTED IP TO THIS HOSP Is patient prescribed a controlled substance at d/c from ED?: No Time of Disposition: 21:05 Decision to Admit Reason: Admit from EC Decision Date: 07/25/23 Decision Time: 21:06
[2023-07-25] MEDS ORDERED: NALOXONE 0.4 MG/ML 1 ML VIAL IV PRN (21:13)
[2023-07-25] MEDS: LIDOCAINE 4% PATCH TOPICAL SCH (22:03)
[2023-07-26 07:03] LABS: Basophils % (A) 0 %; Eosinophils # (A) 0.1 k/uL (0-0.7); Eosinophils % (A) 2 %; HCT 26.1 % (34.0-46.0); HGB 7.9 gm/dL (11.4-16.0); Hypochromasia Marked; Lymphocytes # (A) 1.1 k/uL (1.0-4.8); Lymphocytes % (A) 26 %; MCH 27.8 pg (25.0-35.0); MCHC 30.5 g/dL (31.0-37.0); MCV 91.3 fL (80.0-100.0); Mean Platelet Volume 7.6; Monocytes # (A) 0.2 k/uL (0-1.0); Monocytes % (A) 5 %; Neutrophils # (A) 2.7 k/uL (1.3-7.7); Neutrophils % (A) 65 %; Platelet Count 261 k/uL (150-450); RBC 2.85 m/uL (3.80-5.40); RDW 15.7 % (11.5-15.5); WBC 4.1 k/uL (3.8-10.6)
[2023-07-26 07:54] LABS: African American GFR (CKD) 22 (>60 ml/min/1.73 sqM); Anion Gap 7 mmol/L; Blood Urea Nitrogen 35 mg/dL (7-17); Calcium 8.5 mg/dL (8.4-10.2); Carbon Dioxide 15 mmol/L (22-30); Chloride 118 mmol/L (98-107); Glucose 68 mg/dL (74-99); Non-African American GFR(CKD) 19 (>60 ml/min/1.73 sqM); Potassium 4.2 mmol/L (3.5-5.1); Sodium 140 mmol/L (137-145)
[2023-07-26] MEDS ORDERED: TRIAMCINOLONE 0.1% CREAM 80 GM TUBE TOPICAL PRN (10:36)
--- NOTE | 2023-07-26 11:36 | P.CRDCN ---
History of Present Illness Consult date: 07/26/23 Consult reason: hypotension, other (bradycardia) Chief complaint: hypotension History of present illness: History of present illness: Patient is a pleasant 88-year-old female with significant past medical history of hypertension, paroxysmal atrial fibrillation hyperlipidemia, osteomyelitis, CKD, vasculitis who presented with hypotension and bradycardia. She does see a striker out however is unsure who she sees in the office. She is followed by instrument mechanic Dr. Ding and was recently seen in the ER for uncontrolled high blood pressure and her medications were changed. Yesterday her blood pressure was too low and she was not feeling well, felt generalized weakness. There was question of her possibly taking a double dose of her labetalol. She did have a fall couple days ago when her legs gave out. Telemetry reviewed and shows slow atrial fibrillation with heart rates in the 40s. She is on Eliquis. Heart rates have now improved and are in the 80s90s. Her troponins were negative x 2, BNP 4210, TSH was normal, creatinine 2.25, potassium 4.2. She denies any chest pain or pressure. Denies any shortness of breath, dizziness, syncope. She is feeling better today. REVIEW OF SYSTEMS: No fever or chills. No cough or expectoration. No diaphoresis. Patient denies headache, dizziness, blurred vision, double vision. Patient denies any stomach discomfort. No nausea, vomiting. No hematochezia. No hematemesis. Denies any black stools or blood in his stools. Denies dysuria or hematuria. No numbness. No chest pain or pressure. Reports generalized weakness. PHYSICAL EXAMINATION: This is a 88-year-old female in no apparent distress at the time of my examination. HEENT: Head is atraumatic, normocephalic. Pupils are equal, round. Sclerae anicteric. Conjunctivae are clear. Mucous membranes of the mouth are moist. Neck is supple. There is no jugular venous distention. No carotid bruit is heard. CHEST EXAMINATION: Lungs are clear to auscultation. No chest wall tenderness is noted on palpation or with deep breathing. HEART EXAMINATION: Heart regular rate and rhythm. S1, S2 heard. No murmurs, g allops or rub. ABDOMEN: Soft, nontender. Bowel sounds are heard. EXTREMITIES: 2+ peripheral pulses with no evidence of peripheral edema and no calf tenderness noted. NEUROLOGIC EXAMINATION: Patient is awake, alert and oriented x3. IMPRESSION AND PLAN: 1. Hypertension 2. Bradycardia, possibly related to medication error at home 3. Atrial fibrillation, paroxysmal 4. Hypotension upon arrival, resolved 5. CKD PLAN: Heart rate and blood pressure has improved. Continue with current medicat ion regimen at this time, may need to adjust if becomes bradycardic again. Continue anticoagulation. Okay to eat. Consider outpatient monitor for 1 week at discharge. Will continue to monitor. I am dictating on behalf of Dr. Dev Pimentel's history/physical and assessment/plan. 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 Recieved both covid vaccines, 2nd dose around [facility] History of Any Multi-Drug Resistant Organisms: None Reported Past Surgical History: Appendectomy, Hysterectomy, Orthopedic Surgery Additional Past Surgical History / Comment(s): left ankle, left hip surgery x 2017 Past Anesthesia/Blood Transfusion Reactions: Postoperative Nausea & Vomiting (PONV) Past Psychological History: No Psychological Hx Reported Smoking Status: Former smoker Past Alcohol Use History: Daily Past Drug Use History: None Reported - Past Family History Mother Family Medical History: Myocardial Infarction ([place]) Additional Family Medical History / Comment(s): mother passed 5 at 52 from a [place] Father Family Medical History: CVA/TIA Additional Family Medical History / Comment(s): father from stroke Medications and Allergies Home Medications Medication Instructions Recorded Confirmed Type mycophenolate mofetiL [Cellcept] 500 mg PO BID 09/24/15 07/25/23 History Levothyroxine Sodium 100 mcg PO MOTUWETHFR 10/11/18 07/25/23 History Apixaban [Eliquis] 2.5 mg PO BID 11/05/20 07/25/23 History Latanoprost [Xalatan 0.005%] 1 drop BOTH EYES HS 11/05/20 07/25/23 History Brimonidine Tartrate [Alphagan P 1 drop BOTH EYES DAILY 08/27/21 07/25/23 History 0.2% Ophth Soln] Ergocalciferol (Vitamin D2) 1,250 mcg PO Q14D 06/07/23 07/25/23 History [Drisdol (50,000 Iu)] Iron 18 mg PO DAILY 06/07/23 07/25/23 History Mirtazapine [Remeron] 15 mg PO HS 06/07/23 07/25/23 History Simvastatin [Zocor] 20 mg PO HS 06/07/23 07/25/23 History Triamcinolone 0.1% Cream [Kenalog 1 applic TOPICAL BID PRN 06/07/23 07/25/23 History 0.1% Cream] Verapamil HCl [Verapamil ER] 240 mg PO HS 06/07/23 07/25/23 History calcitrioL 0.5 mcg PO MO 06/07/23 07/25/23 History Dorzolamide-Timol 2.23%/0.68% 1 drop BOTH EYES DAILY 06/30/23 07/25/23 History [Cosopt] Labetalol [Trandate] 100 mg PO BID #60 tab 07/02/23 07/25/23 Rx Losartan [Cozaar] 50 mg PO DAILY@1400 07/25/23 07/25/23 History Allergies Allergy/AdvReac Type Severity Reaction Status Date / Time No Known Allergies Allergy Verified 06/30/23 16:26 Physical Exam Vitals: Vital Signs Temp Pulse Resp BP Pulse Ox 07/26/23 08:35 95 18 173/85 98 07/26/23 06:00 80 18 170/83 95 07/26/23 02:00 68 18 163/76 95 07/25/23 22:00 64 15 136/77 95 07/25/23 21:30 64 15 142/66 94 L 07/25/23 21:00 65 16 142/79 94 L 07/25/23 20:30 65 17 141/68 95 07/25/23 20:00 66 16 139/108 95 07/25/23 19:40 62 13 132/66 94 L 07/25/23 19:30 61 13 138/61 94 L 07/25/23 19:20 60 17 130/64 94 L 07/25/23 19:10 60 14 128/62 96 07/25/23 19:00 53 L 15 119/67 91 L 07/25/23 18:50 58 L 14 107/57 94 L 07/25/23 18:40 49 L 15 108/58 95 07/25/23 18:20 47 L 11 L 99/52 82 L 07/25/23 18:10 46 L 19 99/51 92 L 07/25/23 18:00 44 L 20 92/55 96 07/25/23 17:50 41 L 19 87/52 96 07/25/23 17:40 43 L 20 86/47 96 07/25/23 17:30 42 L 23 75/49 79 L 07/25/23 17:20 43 L 21 73/45 94 L 07/25/23 17:10 43 L 21 79/44 95 07/25/23 17:00 46 L 22 79/46 88 L 07/25/23 16:53 47 L 23 74/42 95 07/25/23 16:50 96.9 F L 47 L 20 74/42 95 07/25/23 16:44 50 L 20 77/47 93 L Intake and Output 07/25/23 07/26/23 07/26/23 22:59 06:59 14:59 Other: Weight 45.132 kg Results 07/26/23 06:12 07/26/23 06:12 Cardiac Enzymes 07/25/23 07/25/23 07/26/23 Range/Units 17:20 17:20 06:12 AST 44 H (14-36) U/L Troponin I <0.012 <0.012 (0.000-0.034) ng/mL Coagulation 07/25/23 Range/Units 17:20 PT 11.4 (10.0-12.5) sec APTT 23.8 (22.0-30.0) sec CBC 07/25/23 07/26/23 Range/Units 17:20 06:12 WBC 5.3 4.1 (3.8-10.6) k/uL RBC 2.78 L 2.85 L (3.80-5.40) m/uL Hgb 7.8 L D 7.9 L (11.4-16.0) gm/dL Hct 25.5 L 26.1 L (34.0-46.0) % Plt Count 279 261 (150-450) k/uL Comprehensive Metabolic Panel 07/25/23 07/26/23 Range/Units 17:20 06:12 Sodium 137 140 (137-145) mmol/L Potassium 4.5 4.2 (3.5-5.1) mmol/L Chloride 116 H 118 H (98-107) mmol/L Carbon Dioxide 15 L 15 L (22-30) mmol/L BUN 35 H 35 H (7-17) mg/dL Creatinine 2.39 H 2.25 H (0.52-1.04) mg/dL Glucose 146 H 68 L (74-99) mg/dL Calcium 7.8 L 8.5 (8.4-10.2) mg/dL AST 44 H (14-36) U/L ALT 28 (4-34) U/L Alkaline Phosphatase 69 (38-126) U/L Total Protein 5.2 L (6.3-8.2) g/dL Albumin 2.8 L (3.5-5.0) g/dL Current Medications Generic Name Dose Route Start Last Admin Trade Name Freq PRN Reason Stop Dose Admin Acetaminophen 650 mg 07/25/23 21:16 Acetaminophen Tab 325 Mg Tab PO Q6HR PRN Pain Atorvastatin Calcium 10 mg 07/26/23 21:00 Atorvastatin 10 Mg Tab PO HS [facility] Brimonidine Tartrate 1 drops 07/26/23 11:00 Brimonidine Tartrate 0.2% Drops 5 Ml Btl BOTH EYES DAILY [facility] Dorzolamide/Timolol 1 drops 07/26/23 11:00 Dorzolamide-Timolol 2.23%/0.68 10ml Btl BOTH EYES DAILY [facility] Labetalol HCl 100 mg 07/26/23 11:00 Labetalol 100 Mg Tab PO BID [facility] Latanoprost 1 drops 07/26/23 21:00 Latanoprost 0.005% Ophth Drops 2.5 Ml Btl BOTH EYES HS [facility] Levothyroxine Sodium 100 mcg 07/26/23 11:00 Levothyroxine 100 Mcg Tab PO MoTuWeThFr@0630 [facility] Lidocaine 1 patch 07/25/23 21:30 07/26/23 08:37 Lidocaine 4% Patch TOPICAL Not Given DAILY [facility] Protocol Losartan Potassium 50 mg 07/26/23 14:00 Losartan 50 Mg Tab PO DAILY@1400 [facility] Mirtazapine 15 mg 07/26/23 21:00 Mirtazapine 15 Mg Tab PO HS [facility] Mycophenolate Mofetil 500 mg 07/26/23 11:00 Mycophenolate Mofetil 250 Mg Cap PO BID [facility] Naloxone HCl 0.2 mg 07/25/23 21:13 Naloxone 0.4 Mg/Ml 1 Ml Vial IV Q2M PRN Opioid Reversal Triamcinolone Acetonide 1 applic 07/26/23 10:36 Triamcinolone 0.1% Cream 80 Gm Tube TOPICAL BID PRN Rash Protocol Verapamil HCl 240 mg 07/26/23 21:00 Verapamil Sr 240 Mg Tablet.Er PO HS NOREEN Intake and Output 07/25/23 07/26/23 07/26/23 22:59 06:59 14:59 Other: Weight 45.132 kg 07/26/23 06:12 07/26/23 06:12
[2023-07-26] MEDS: LABETALOL 100 MG TAB PO SCH (12:18)
[2023-07-26] MEDS: ENOXAPARIN 30 MG/0.3 ML SYRINGE SQ SCH (12:20)
[2023-07-26] MEDS: LEVOTHYROXINE 100 MCG TAB PO SCH (12:21)
[2023-07-26] MEDS: BRIMONIDINE TARTRATE 0.2% DROPS 5 ML BTL BOTH EYES SCH (12:52)
[2023-07-26] MEDS: DORZOLAMIDE-TIMOLOL 2.23%/0.68 10ML BTL BOTH EYES SCH (12:52)
[2023-07-26] MEDS: SODIUM BICARB 8.4% 50 ML SYR (1 MEQ/ML) IV STA (15:25)
[2023-07-26] MEDS: LOSARTAN 50 MG TAB PO SCH (15:25)
[2023-07-26] MEDS: SODIUM BICARBONATE TAB 650 MG TAB PO SCH (15:25)
--- NOTE | 2023-07-26 16:04 | P.HPIM ---
History of Present Illness H&P Date: 07/26/23 Chief Complaint: Weak in the legs fall This is a pleasant 88-year-old patient, who is following with Dr. Wiley. [employer] Dr. Ding. chronic medical conditions include atrial fibrillation, GERD, hyperlipidemia, osteomyelitis, CK D, vasculitis. Patient was recently in the hospital from June 30 through July 02. Patient blood pressure was not well-controlled as outpatient. Hence admitted for the same. Medication adjusted was blood pressure was doing better. Recently his outpatient Dr. Ding further medications adjustment was done. Yesterday patient was in the kitchen when her legs gave under and she fell down. Never passed out. No dizziness normal lightheadedness. No chest pain or palpitation. EMS who came to to her house noted that she was hypotensive and bradycardic. Recently her verapamil was resumed. Her initial blood pressure when she arrived here was 77/47 with a heart rate in the 40s. Review of systems: GEN.: Tired EYES: None HEENT: None NECK: None RESPIRATORY: None CARDIOVASCULAR: None GASTROINTESTINAL: None GENITOURINARY: Urine stress incontinence MUSCULOSKELETAL: Joint pains LYMPHATICS: None HEMATOLOGICAL: None PSYCHIATRY: None NEUROLOGICAL: None Social history: Lives alone. Stopped smoking many years ago. Smoked for about 20 years. No alcohol. Physical examination: VITAL SIGNS: 96.9, 47, 20, 74/42, 95% room air upon presentation GENERAL: BMI 18.2, reclining in bed awake tired. EYES: Pupils equal. Conjunctiva normal. HEENT: External appearance of nose and ears normal, oral cavity grossly normal. NECK: JVD not raised; masses not palpable. HEART: First and second heart sounds are normal; no edema. LUNGS: Respiratory rate normal; clear to auscultation. ABDOMEN: Soft, nontender, liver spleen not palpable, no masses palpable. PSYCH: Alert and oriented x3; mood and affect normal. MUSCULOSKELETAL:No Clubbing/cyanosis;muscles-grossly intact. OA. Loss of muscle mass prominent bones NEUROLOGICAL: Cranial nerves grossly intact; no facial asymmetry, power and sensation grossly intact. LYMPHATICS: No lymph nodes palpable in the axilla and neck INVESTIGATIONS, reviewed in the clinical context: July 26, 2023: White count 4.1 hemoglobin 7.9 platelets 2 7061 sodium 140 potassium 4.2 bicarb 15 BUN 35 creatinine 2.25 Troponin I less than 0.012 x 3 TSH 3.9 EKG tracing personally reviewed by me-normal sinus rhythm. Some nonspecific T wave changes Chest x-ray film personally reviewed by me-unremarkable Assessment and plan: -Syncope from hypotension from medications that were being adjusted. Patient's blood pressure control has been a problem and is being followed by Dr. Ding her church worker outpatient. -Essential hypertension At home patient is getting verapamil ER to 40 mg, Cozaar 50 mg at 2 PM, labetalol 100 mg twice daily. Follow-up with Dr. Ding -Chronic kidney disease, stage IV possibly nephrosclerosis Follow renal function -Metabolic acidosis from CKD Sodium bicarbonate -Normocytic anemia secondary to chronic kidney disease -Hypothyroid Levothyroxin. 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 Continue supplements -Chronic vascular disease, type unknown CellCept -Chronic urinary stress incontinence -Moderate protein calorie malnutrition Ensure. Patient blood pressure has not been well-controlled. In spite of close monitoring and recent hospitalization patient still presents with hypotension. Close monitoring of blood pressure with further adjustments have to be done. Will need more than 2 night stay in the hospital. Not safe to be discharged. 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 Recieved both covid vaccines, 2nd dose around [facility] History of Any Multi-Drug Resistant Organisms: None Reported Past Surgical History: Appendectomy, Hysterectomy, Orthopedic Surgery Additional Past Surgical History / Comment(s): left ankle, left hip surgery x 2017 Past Anesthesia/Blood Transfusion Reactions: Postoperative Nausea & Vomiting (PONV) Past Psychological History: No Psychological Hx Reported Smoking Status: Former smoker Past Alcohol Use History: Daily Past Drug Use History: None Reported - Past Family History Mother Family Medical History: Myocardial Infarction ([place]) Additional Family Medical History / Comment(s): mother passed 5 at 52 from a [place] Father Family Medical History: CVA/TIA Additional Family Medical History / Comment(s): father from stroke Medications and Allergies Home Medications Medication Instructions Recorded Confirmed Type mycophenolate mofetiL [Cellcept] 500 mg PO BID 09/24/15 07/25/23 History Levothyroxine Sodium 100 mcg PO MOTUWETHFR 10/11/18 07/25/23 History Apixaban [Eliquis] 2.5 mg PO BID 11/05/20 07/25/23 History Latanoprost [Xalatan 0.005%] 1 drop BOTH EYES HS 11/05/20 07/25/23 History Brimonidine Tartrate [Alphagan P 1 drop BOTH EYES DAILY 08/27/21 07/25/23 Histor y 0.2% Ophth Soln] Ergocalciferol (Vitamin D2) 1,250 mcg PO Q14D 06/07/23 07/25/23 History [Drisdol (50,000 Iu)] Iron 18 mg PO DAILY 06/07/23 07/25/23 History Mirtazapine [Remeron] 15 mg PO HS 06/07/23 07/25/23 History Simvastatin [Zocor] 20 mg PO HS 06/07/23 07/25/23 History Triamcinolone 0.1% Cream [Kenalog 1 applic TOPICAL BID PRN 06/07/23 07/25/23 History 0.1% Cream] Verapamil HCl [Verapamil ER] 240 mg PO HS 06/07/23 07/25/23 History calcitrioL 0.5 mcg PO MO 06/07/23 07/25/23 History Dorzolamide-Timol 2.23%/0.68% 1 drop BOTH EYES DAILY 06/30/23 07/25/23 History [Cosopt] Labetalol [Trandate] 100 mg PO BID #60 tab 07/02/23 07/25/23 Rx Losartan [Cozaar] 50 mg PO DAILY@1400 07/25/23 07/25/23 History Allergies Allergy/AdvReac Type Severity Reaction Status Date / Time No Known Allergies Allergy Verified 06/30/23 16:26 Physical Exam Vitals: Vital Signs Temp Pulse Resp BP Pulse Ox 07/26/23 08:35 95 18 173/85 98 07/26/23 06:00 80 18 170/83 95 07/26/23 02:00 68 18 163/76 95 07/25/23 22:00 64 15 136/77 95 07/25/23 21:30 64 15 142/66 94 L 07/25/23 21:00 65 16 142/79 94 L 07/25/23 20:30 65 17 141/68 95 07/25/23 20:00 66 16 139/108 95 07/25/23 19:40 62 13 132/66 94 L 07/25/23 19:30 61 13 138/61 94 L 07/25/23 19:20 60 17 130/64 94 L 07/25/23 19:10 60 14 128/62 96 07/25/23 19:00 53 L 15 119/67 91 L 07/25/23 18:50 58 L 14 107/57 94 L 07/25/23 18:40 49 L 15 108/58 95 07/25/23 18:20 47 L 11 L 99/52 82 L 07/25/23 18:10 46 L 19 99/51 92 L 07/25/23 18:00 44 L 20 92/55 96 07/25/23 17:50 41 L 19 87/52 96 07/25/23 17:40 43 L 20 86/47 96 07/25/23 17:30 42 L 23 75/49 79 L 07/25/23 17:20 43 L 21 73/45 94 L 07/25/23 17:10 43 L 21 79/44 95 07/25/23 17:00 46 L 22 79/46 88 L 07/25/23 16:53 47 L 23 74/42 95 07/25/23 16:50 96.9 F L 47 L 20 74/42 95 07/25/23 16:44 50 L 20 77/47 93 L Intake and Output 07/25/23 07/26/23 07/26/23 22:59 06:59 14:59 Other: Weight 45.132 kg Results CBC & Chem 7: 07/26/23 06:12 07/26/23 06:12 Labs: Abnormal Lab Results - Last 24 Hours (Table) 07/25/23 07/25/23 07/26/23 Range/Units 17:20 17:20 06:12 RBC 2.78 L 2.85 L (3.80-5.40) m/uL Hgb 7.8 L D 7.9 L (11.4-16.0) gm/dL Hct 25.5 L 26.1 L (34.0-46.0) % MCHC 30.7 L 30.5 L (31.0-37.0) g/dL RDW 15.7 H 15.7 H (11.5-15.5) % Lymphocytes # 0.4 L (1.0-4.8) k/uL Chloride 116 H (98-107) mmol/L Carbon Dioxide 15 L (22-30) mmol/L BUN 35 H (7-17) mg/dL Creatinine 2.39 H (0.52-1.04) mg/dL Glucose 146 H (74-99) mg/dL Calcium 7.8 L (8.4-10.2) mg/dL AST 44 H (14-36) U/L Total Protein 5.2 L (6.3-8.2) g/dL Albumin 2.8 L (3.5-5.0) g/dL 07/26/23 Range/Units 06:12 RBC (3.80-5.40) m/uL Hgb (11.4-16.0) gm/dL Hct (34.0-46.0) % MCHC (31.0-37.0) g/dL RDW (11.5-15.5) % Lymphocytes # (1.0-4.8) k/uL Chloride 118 H (98-107) mmol/L Carbon Dioxide 15 L (22-30) mmol/L BUN 35 H (7-17) mg/dL Creatinine 2.25 H (0.52-1.04) mg/dL Glucose 68 L (74-99) mg/dL Calcium (8.4-10.2) mg/dL AST (14-36) U/L Total Protein (6.3-8.2) g/dL Albumin (3.5-5.0) g/dL
[2023-07-26] MEDS ORDERED: VERAPAMIL SR 240 MG TABLET.ER PO SCH (21:00)
[2023-07-26] MEDS: ATORVASTATIN 10 MG TAB PO SCH (21:29)
[2023-07-26] MEDS: MIRTAZAPINE 15 MG TAB PO SCH (21:30)
[2023-07-26] MEDS: LATANOPROST 0.005% OPHTH DROPS 2.5 ML BTL BOTH EYES SCH (22:12)
[2023-07-27] MEDS: VERAPAMIL SR 240 MG TABLET.ER PO SCH (07:46)
[2023-07-27] MEDS: hydrALAZINE HCL 50 MG TAB PO SCH (10:10)
--- NOTE | 2023-07-27 10:34 | P.PN ---
Subjective HISTORY OF PRESENT ILLNESS: This is an 88-year-old female who follows in the office with Dr. Tafoya. Patient has a history of paroxysmal atrial fibrillation, hypertension, hyperlipidemia, GERD, chronic kidney disease, mitral regurgitation, and frequent falls. The patient was recently admitted to the hospital for uncontrolled hypertension. Patients antihypertensive regimen was modified. Patient states that she has continued to have issues with her blood pressure going very low and also very high. Apparently there was question of the patient taking a double dose of her labetalol. The patient was bradycardic in the 40s upon arrival and also hypotensive with a systolic blood pressure in the 70s. Patient's blood pressure this morning was charted at 227/103. She denies any chest pain or pressure. She denies any shortness of breath. Denies any dizziness or lightheadedness. The patient is currently not on telemetry monitoring. Documented heart rates are in the [id number]. PHYSICAL EXAM: VITAL SIGNS: Reviewed. GENERAL: Well-developed in no acute distress. NECK: Supple. No JVD or thyromegaly LUNGS: Respirations even and unlabored. Lungs essentially clear to auscultation bilaterally. HEART: Regular rate and rhythm. S1 and S2 heard. EXTREMITIES: Normal range of motion. No clubbing or cyanosis. Peripheral pulses intact. No lower extremity edema ASSESSMENT: Bradycardia, possibly related to medication error at home, resolved Hypotension upon admission History of hypertension Labile blood pressures Paroxysmal atrial fibrillation Chronic kidney disease History of GERD History of mitral regurgitation History of frequent falls PLAN: Initially this morning when patient was evaluated her blood pressure was 227/103. Patient's labetalol was discontinued and patient was started on carvedilol 12.5 mg twice a day to begin this evening as she has already received her morning dose of labetalol. And also received her morning dose of losartan. Plan was to decrease losartan to 25 mg daily and add hydralazine 50 mg 3 times daily for optimal blood pressure control. However, notified by nursing that after patient was given her morning dose of verapamil and labetalol, her blood pressure was 110/61 and subsequently hyd ralazine was discontinued before patient received a dose Nursing obtained manual blood pressures in both arms. Left arm 92/48 and right arm 98/48 Continue to monitor blood pressure Obtain orthostatic blood pressures this afternoon Initiate telemetry monitoring to assess for any further episodes of bradycardia Further recommendations pending patient course Nurse practitioner note has been reviewed by physician. Signing provider agrees with the documented findings, assessment, and plan of care documented by [employer] REPA[employer] SUPERVISOR as a scribe. Objective - Vital Signs Vital signs: Vital Signs Temp 97.7 F 07/27/23 07:00 Pulse 96 07/27/23 07:00 Resp 20 07/27/23 07:00 BP 227/103 07/27/23 07:00 Pulse Ox 94 L 07/27/23 07:00 FiO2 Intake & Output 07/26/23 07/27/23 07/27/23 18:59 06:59 18:59 Intake Total 200 Balance 200 Weight 45.132 kg Intake: Oral 200 Other: # Voids 1 - Labs CBC & Chem 7: 07/26/23 06:12 07/26/23 06:12
--- NOTE | 2023-07-27 11:07 | P.NPCON ---
History of Present Illness - Reason for Consult acute renal failure, chronic renal failure - History of Present Illness Reason for consultation: Acute kidney injury on chronic kidney disease History of present illness: Patient is a 88-year-old female seen in renal consultation for acute kidney injury on chronic kidney disease. Patient's creatinine in May 2023 was 1.53 and 1.92 dated June 30, 2023. This admission her creatinine was 2.39 and is 2.25 today. 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 Patient states she was diagnosed with vasculitis in 2006. Patient came to the hospital after she sustained a fall at home. Patient states her legs gave out and she fell. She denies losing consciousness. She states her blood pressure medications are being adjusted outpatient and her blood pressure was high in the morning and dropping too low in the afternoon. Patient was also noted to be bradycardic and there was concern that she was taking too much labetalol. She denies chest pain or shortness of breath. Denies gross hematuria or dysuria. Blood pressure this admission has also been quite labile. She is on room air. She denies history of diabetes. Denies history of coronary artery disease. No fever or chills. Vital signs are stable. Blood pressure labile. General: No acute distress. HEENT: Head exam is unremarkable. LUNGS: No audible rhonchi or wheezes. HEART: Rate and Rhythm are regular. ABDOMEN: Nontender. EXTREMITITES: No edema. 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 Recieved both covid vaccines, 2nd dose around History of Any Multi-Drug Resistant Organisms: None Reported Past Surgical History: Appendectomy, Hysterectomy, Orthopedic Surgery Additional Past Surgical History / Comment(s): left ankle, left hip surgery x 2017 Past Anesthesia/Blood Transfusion Reactions: Postoperative Nausea & Vomiting (PONV) Past Psychological History: No Psychological Hx Reported Smoking Status: Former smoker Past Alcohol Use History: Daily Past Drug Use History: None Reported - Past Family History Mother Family Medical History: Myocardial Infarction ([place]) Additional Family Medical History / Comment(s): mother passed 5 at 52 from a [place] Father Family Medical History: CVA/TIA Additional Family Medical History / Comment(s): father from stroke Medications and Allergies Home Medications Medication Instructions Recorded Confirmed Type mycophenolate mofetiL [Cellcept] 500 mg PO BID 09/24/15 07/25/23 History Levothyroxine Sodium 100 mcg PO MOTUWETHFR 10/11/18 07/25/23 History Apixaban [Eliquis] 2.5 mg PO BID 11/05/20 07/25/23 History Latanoprost [Xalatan 0.005%] 1 drop BOTH EYES HS 11/05/20 07/25/23 History Brimonidine Tartrate [Alphagan P 1 drop BOTH EYES DAILY 08/27/21 07/25/23 History 0.2% Ophth Soln] Ergocalciferol (Vitamin D2) 1,250 mcg PO Q14D 06/07/23 07/25/23 History [Drisdol (50,000 Iu)] Iron 18 mg PO DAILY 06/07/23 07/25/23 History Mirtazapine [Remeron] 15 mg PO HS 06/07/23 07/25/23 History Simvastatin [Zocor] 20 mg PO HS 06/07/23 07/25/23 History Triamcinolone 0.1% Cream [Kenalog 1 applic TOPICAL BID PRN 06/07/23 07/25/23 History 0.1% Cream] Verapamil HCl [Verapamil ER] 240 mg PO DAILY 06/07/23 07/26/23 History calcitrioL 0.5 mcg PO MO 06/07/23 07/25/23 History Dorzolamide-Timol 2.23%/0.68% 1 drop BOTH EYES DAILY 06/30/23 07/25/23 History [Cosopt] Labetalol [Trandate] 100 mg PO BID #60 tab 07/02/23 07/25/23 Rx Losartan [Cozaar] 50 mg PO DAILY@1400 07/25/23 07/25/23 History Allergies Allergy/AdvReac Type Severity Reaction Status Date / Time No Known Allergies Allergy Verified 06/30/23 16:26 Physical Exam Vitals: Vital Signs Temp Pulse Pulse Resp BP BP Pulse Ox 07/27/23 07:00 97.7 F 96 20 227/103 94 L 07/27/23 03:25 72 162/95 07/27/23 02:30 98.1 F 91 16 199/88 96 07/26/23 19:02 97.7 F 107 H 16 136/62 98 07/26/23 17:45 108 H 18 164/88 97 07/26/23 15:33 59 L 18 152/95 96 07/26/23 12:52 75 18 169/101 96 07/26/23 11:00 88 18 173/93 96 Intake and Output 07/26/23 07/27/23 07/27/23 22:59 06:59 14:59 Intake Total 200 Balance 200 Intake: Oral 200 Other: # Voids 1 Weight 45.132 kg Results - Lab Results Most recent lab results Calcium 8.5 mg/dL (8.4-10.2) 07/26/23 06:12 Magnesium 1.6 mg/dL (1.6-2.3) 07/25/23 17:20 07/26/23 06:12 07/26/23 06:12 Assessment and Plan Plan: Assessment: 1. Acute kidney injury secondary to hemodynamic ATN. Creatinine stable at 2.353. 2. Chronic kidney disease stage IIIb/IV with baseline creatinine recently in the range of 1.5-2 secondary to P ANCA associated vasculitis. 3. 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 4. Hypertension with chronic kidney disease. 5. Bradycardia from beta-abby use. 6. Metabolic acidosis secondary to acute kidney injury maintained on oral bicarb. Plan: Patient started on carvedilol this morning and labetalol was discontinued. She is also receiving verapamil and losartan. It is noted that patient's manual blood pressures were low in the systolic 90s. Check orthostatic vital signs. Avoid nephrotoxins. Check UA. Follow-up echocardiogram. Thank you for the consultation. I will continue to follow the patient with you during her hospital stay.
[2023-07-27 11:56] LABS: BUN/Creat Ratio 16.83 Ratio (12.00-20.00); Blood Urea Nitrogen 30.3 mg/dL (9.0-27.0); Calcium 8.5 mg/dL (8.7-10.3); Carbon Dioxide 19.8 mmol/L (21.6-31.8); Chloride 111 mmol/L (96-109); Glucose 83 mg/dL (70-110); Magnesium 1.7 mg/dL (1.5-2.4); Potassium 4.1 mmol/L (3.5-5.5); Sodium 143 mmol/L (135-145)
[2023-07-27] MEDS: LOSARTAN 25 MG TAB PO SCH (14:19)
[2023-07-27 14:38] VITALS: BMI 18.1
[2023-07-27] MEDS: ACETAMINOPHEN TAB 325 MG TAB PO PRN (14:55)
--- NOTE | 2023-07-27 16:19 | P.PN ---
Progress Note - Text Progress Note Date: 07/27/23 Chief Complaint: Weak in the legs fall This is a pleasant 88-year-old patient, who is following with Dr. Wiley. Food Service Lead Dr. Ding. chronic medical conditions include atrial fibrillation, GERD, hyperlipidemia, osteomyelitis, CK D, vasculitis. Patient was recently in the hospital from June 30 through July 02. Patient blood pressure was not well-controlled as outpatient. Hence admitted for the same. Medication adjusted was blood pressure was doing better. Recently his outpatient Dr. Ding further medications adjustment was done. Yesterday patient was in the kitchen when her legs gave under and she fell down. Never passed out. No dizziness normal lightheadedness. No chest pain or palpitation. EMS who came to to her house noted that she was hypotensive and bradycardic. Recently her verapamil was resumed. Her initial blood pressure when she arrived here was 77/47 with a heart rate in the 40s. July 27: Patient blood pressure medication adjusted. Started on Coreg today. 12.5 twice daily. Also on Cozaar. And verapamil. Discussed with the patient the importance of checking her blood pressure to be stable at least for 24 hours before we discharge her. Given what happened at home. Active Medications Acetaminophen (Acetaminophen Tab 325 Mg Tab) 650 mg PO Q6HR PRN PRN Reason: Pain Last Admin: 07/27/23 14:55 Dose: 650 mg Atorvastatin Calcium (Atorvastatin 10 Mg Tab) 10 mg PO HS [facility] Last Admin: 07/26/23 21:29 Dose: 10 mg Brimonidine Tartrate (Brimonidine Tartrate 0.2% Drops 5 Ml Btl) 1 drops BOTH EYES DAILY [facility] Last Admin: 07/27/23 07:46 Dose: 1 drops Carvedilol (Carvedilol 12.5 Mg Tab) 12.5 mg PO BID-W/MEALS [facility] Dorzolamide/Timolol (Dorzolamide-Timolol 2.23%/0.68 10ml Btl) 1 drops BOTH EYES DAILY [facility] Last Admin: 07/27/23 07:46 Dose: 1 drops Enoxaparin Sodium (Enoxaparin 30 Mg/0.3 Ml Syringe) 30 mg SQ DAILY [facility] Last Admin: 07/27/23 07:46 Dose: 30 mg Latanoprost (Latanoprost 0.005% Ophth Drops 2.5 Ml Btl) 1 drops BOTH EYES [facility] Last Admin: 07/26/23 22:12 Dose: Not Given Levothyroxine Sodium (Levothyroxine 100 Mcg Tab) 100 mcg PO MoTuWeThFr@0630 [facility] Last Admin: 07/27/23 05:48 Dose: 100 mcg Lidocaine (Lidocaine 4% Patch) 1 patch TOPICAL DAILY [facility]; Protocol Last Admin: 07/27/23 07:52 Dose: Not Given Losartan Potassium (Losartan 25 Mg Tab) 25 mg PO DAILY@1400 [facility] Last Admin: 07/27/23 14:19 Dose: 25 mg Mirtazapine (Mirtazapine 15 Mg Tab) 15 mg PO [facility] Last Admin: 07/26/23 21:30 Dose: 15 mg Mycophenolate Mofetil (Mycophenolate Mofetil 250 Mg Cap) 500 mg PO BID [facility] Last Admin: 07/27/23 07:47 Dose: 500 mg Naloxone HCl (Naloxone 0.4 Mg/Ml 1 Ml Vial) 0.2 mg IV Q2M PRN PRN Reason: Opioid Reversal Sodium Bicarbonate (Sodium Bicarbonate Tab 650 Mg Tab) 650 mg PO TID [facility] Last Admin: 07/27/23 07:45 Dose: 650 mg Triamcinolone Acetonide (Triamcinolone 0.1% Cream 80 Gm Tube) 1 applic TOPICAL BID PRN; Protocol PRN Reason: Rash Verapamil HCl (Verapamil Sr 240 Mg Tablet.Er) 240 mg PO DAILY [facility] Last Admin: 07/27/23 07:46 Dose: 240 mg Social history: Lives alone. Stopped smoking many years ago. Smoked for about 20 years. No alcohol. Physical examination: VITAL SIGNS: 98, 70, 18, 125/66, 95% room air GENERAL: Reclining in bed, comfortable EYES: Pupils equal. Conjunctiva normal. HEENT: External appearance of nose and ears normal, oral cavity grossly normal. NECK: JVD not raised; masses not palpable. HEART: First and second heart sounds are normal; no edema. LUNGS: Respiratory rate normal; clear to auscultation. ABDOMEN: Soft, nontender, liver spleen not palpable, no masses palpable. PSYCH: Alert and oriented x3; mood and affect normal. MUSCULOSKELETAL:No Clubbing/cyanosis;muscles-grossly intact. OA. Loss of muscle mass prominent bones INVESTIGATIONS, reviewed in the clinical context: July 27: Potassium 4.1 BUN 30.3 creatinine 1.8 July 26, 2023: White count 4.1 hemoglobin 7.9 platelets 2 7061 sodium 140 potassium 4.2 bicarb 15 BUN 35 creatinine 2.25 Troponin I less than 0.012 x 3 TSH 3.9 EKG tracing personally reviewed by me-normal sinus rhythm. Some nonspecific T wave changes Chest x-ray film personally reviewed by me-unremarkable Assessment and plan: -Syncope from hypotension from medications that were being adjusted. Patient's blood pressure control has been a problem and is being followed by Dr. Ding her whitewasher outpatient. -Essential hypertension, labile Labetalol discontinued. Coreg 12.5 twice daily added. Cozaar 25 mg a day. Verapamil 240 mg a day. -Chronic kidney disease, stage IV possibly nephrosclerosis Follow renal function -Acute kidney injury, possibly from hypotension/ATN Admitting creatinine was 2.39. Today 1.8 -Metabolic acidosis from CKD Sodium bicarbonate -Normocytic anemia secondary to chronic kidney disease -Hypothyroid Levothyroxin. 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 Continue supplements -Chronic vascular disease, type unknown CellCept -Chronic urinary stress incontinence -Moderate protein calorie malnutrition Ensure. Continue to follow blood pressure measurement closely. Follow-up with nephrology. 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 Recieved both covid vaccines, 2nd dose around [facility] History of Any Multi-Drug Resistant Organisms: None Reported Past Surgical History: Appendectomy, Hysterectomy, Orthopedic Surgery Additional Past Surgical History / Comment(s): left ankle, left hip surgery x 2017 Past Anesthesia/Blood Transfusion Reactions: Postoperative Nausea & Vomiting (PONV) Past Psychological History: No Psychological Hx Reported Smoking Status: Former smoker Past Alcohol Use History: Daily Past Drug Use History: None Reported
[2023-07-27] MEDS: carvediloL 12.5 MG TAB PO SCH (17:05)
--- NOTE | 2023-07-27 19:12 | CA ---
Transthoracic Echo Report Name: Selena Horton Age: 88 Gender: F : 1935 Exam Date: 07/27/2023 15:33 Exam Location: [facility] Ht (in): 62 Wt (lb): 99 Ordering Physician: Opal Sepulveda Attending/Referring Phys: [id number], Derick Roll Line Operator Malu Natarajan RDCS Procedure CPT: Indications: LV function, HTN Cardiac Hx: Technical Quality: Fair Contrast 1: Total Dose (mL): Contrast 2: Total Dose (mL): MEASUREMENTS (Male / Female) Normal Values 2D ECHO LV Diastolic Diameter PLAX 2.6 cm 4.2 - 5.9 / 3.9 - 5.3 cm LV Systolic Diameter PLAX 1.9 cm IVS Diastolic Thickness 1.7 cm 0.6 - 1.0 / 0.6 - 0.9 cm LVPW Diastolic Thickness 1.6 cm 0.6 - 1.0 / 0.6 - 0.9 cm LV Relative Wall Thickness 1.3 RV Internal Dim ED PLAX 2.9 cm LA Volume 65.1 cm??? 18 - 58 / 22 - 52 cm??? LA Volume Index 46.7 cm???/m??? 16 - 28 cm???/m??? M-MODE Aortic Root Diameter MM 2.8 cm LA Systolic Diameter MM 4.0 cm LA Ao Ratio MM 1.4 AV Cusp Separation MM 1.9 cm DOPPLER AV Peak Velocity 102.0 cm/s AV Peak Gradient 4.2 mmHg AV Mean Velocity 74.8 cm/s AV Mean Gradient 2.5 mmHg AV Velocity Time Integral 21.1 cm AI Peak Velocity 379.9 cm/s AI Peak Gradient 57.7 mmHg AI Pressure Half Time 584.2 ms LVOT Peak Velocity 92.0 cm/s LVOT Peak Gradient 3.4 mmHg LVOT Velocity Time Integral 17.0 cm Mitral E Point Velocity 114.5 cm/s Mitral A Point Velocity 90.3 cm/s Mitral E to A Ratio 1.3 MV E' Velocity 7.9 cm/s Mitral E to MV E' Ratio 14.5 TR Peak Velocity 324.4 cm/s TR Peak Gradient 42.1 mmHg Right Ventricular Systolic Press 47.1 mmHg FINDINGS Left Ventricle Mdoerately increased left ventricular wall thickness. Left ventricular cavity size normal. Normal left ventricular systolic function with no obvious regional wall motion abnormalities. Left ventricular ejection fraction is estimated at 55-60 %. Right Ventricle Normal right ventricular size and function. Moderate pulmonary hypertension. Right ventricular systolic pressure estimated at 47 mm hg. Right Atrium Normal right atrial size. Left Atrium Moderately increased left atrial volume. Mildly increased left atrial area. Mitral Valve Structurally normal mitral valve. Mitral valve thickened. Mild mitral annular calcification. Mild mitral regurgitation. Aortic Valve No aortic stenosis. Trace to mild aortic regurgitation. Tricuspid Valve Structurally normal tricuspid valve. [id number] tricuspid regurgitation. Pulmonic Valve Structurally normal pulmonic valve. Trace pulmonic regurgitation. Pericardium No pericardial effusion. Aorta Normal size aortic root and proximal ascending aorta. CONCLUSIONS Left ventricular ejection fraction is estimated at 55-60 %. Mdoerately increased left ventricular wall thickness. Normal left ventricular systolic function with no obvious regional wall motion abnormalities. Right ventricular systolic pressure estimated at 47 mm hg. Mild mitral regurgitation. [id number] tricuspid regurgitation. Previewed by: Dr Franky Sousa (Electronically Signed) Final Date: 27 July 2023 19:11
[2023-07-28 02:49] LABS: Appearance,Urine Clear (Clear); Bacteria,Urine Rare /hpf; Bilirubin,Urine Negative (Negative); Blood,Urine Trace (Negative); Color,Urine Colorless; Glucose,Urine (UA) Negative (Negative); Hyaline Casts,Urine 1 /lpf (0-2); Ketones,Urine Negative (Negative); Leukocyte Esterase,Urine Negative (Negative); Mucus,Urine Rare /hpf; Nitrite,Urine Negative (Negative); PH, Urine 5.5 (5.0-8.0); Protein,Urine 1+ (Negative); RBC,Urine 6 /hpf (0-5); Specific Gravity,Urine 1.012 (1.001-1.035); Squamous Epithelial Cell,Urine 2 /hpf (0-4); Urobilinogen,Urine <2.0 mg/dL (<2.0); WBC,Urine 6 /hpf (0-5)
[2023-07-28 09:03] LABS: African American GFR (CKD) 32 (>60 ml/min/1.73 sqM); Anion Gap 7 mmol/L; Blood Urea Nitrogen 32 mg/dL (7-17); Calcium 8.9 mg/dL (8.4-10.2); Carbon Dioxide 21 mmol/L (22-30); Chloride 112 mmol/L (98-107); Glucose 88 mg/dL (74-99); Magnesium 1.7 mg/dL (1.6-2.3); Non-African American GFR(CKD) 28 (>60 ml/min/1.73 sqM); Potassium 4.1 mmol/L (3.5-5.1); Sodium 140 mmol/L (137-145)
--- NOTE | 2023-07-28 11:24 | P.PN ---
Subjective Progress Note Date: 07/28/23 Follow-up for DEMIAN and hypertension. States her BP was very high overnight after holding medications and was given her morning BP medications early today. No new complaints. Wants to go home. Vital signs are stable. Blood pressure labile. General: No acute distress. HEENT: Head exam is unremarkable. LUNGS: No audible rhonchi or wheezes. HEART: Rate and Rhythm are regular. ABDOMEN: Nontender. EXTREMITITES: No edema. Objective - Vital Signs Vital signs: Vital Signs Temp 98.3 F 07/28/23 07:35 Pulse 86 07/28/23 07:35 Resp 19 07/28/23 07:35 BP 115/67 07/28/23 09:30 Pulse Ox 98 07/28/23 07:35 FiO2 Intake & Output 07/27/23 07/28/23 07/28/23 18:59 06:59 18:59 Output Total 300 Balance -300 Weight 45.132 kg Output: Urine 300 Other: Voiding Method Toilet Toilet # Voids 3 1 - Labs CBC & Chem 7: 07/26/23 06:12 07/28/23 07:34 Labs: Abnormal Lab Results - Last 24 Hours (Table) 07/27/23 07/28/23 07/28/23 Range/Units 06:53 02:22 07:34 Chloride 111 H 112 H (96-109) mmol/L Carbon Dioxide 19.8 L 21 L (21.6-31.8) mmol/L Anion Gap 12.20 H (4.00-12.00) mmol/L BUN 30.3 H 32 H (9.0-27.0) mg/dL Creatinine 1.8 H 1.62 H (0.6-1.5) mg/dL Est GFR (CKD-EPI) 27 L (>=60) Calcium 8.5 L (8.7-10.3) mg/dL Urine Protein 1+ H (Negative) Urine Blood Trace H (Negative) Urine RBC 6 H (0-5) /hpf Urine WBC 6 H (0-5) /hpf Urine Bacteria Rare H (None) /hpf Urine Mucus Rare H (None) /hpf Assessment and Plan Plan: Assessment: 1. Acute kidney injury secondary to hemodynamic ATN. Creatinine improved 2.25 to 1.6 today. 2. Chronic kidney disease stage IIIb/IV with baseline creatinine recently in the range of 1.5-2 secondary to P ANCA associated vasculitis. 3. 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 4. Hypertension with chronic kidney disease. 5. Bradycardia from beta-abby use. 6. Metabolic acidosis secondary to acute kidney injury maintained on oral bicarb. Plan: Patient started on carvedilol and labetalol was discontinued. She is also receiving verapamil and losartan. BP high overnight, given morning medications early. If BP improved this after noon clear for discharge with outpatient follow-up Dr Ding in 3 weeks.
[2023-07-28] MEDS ORDERED: ONDANSETRON 4 MG/2 ML VIAL IVP PRN (13:11)
--- NOTE | 2023-07-28 16:07 | P.PN ---
Progress Note - Text Progress Note Date: 07/28/23 Chief Complaint: Weak in the legs fall This is a pleasant 88-year-old patient, who is following with Dr. Wiley. Director Of Alumni Relations Dr. Ding. chronic medical conditions include atrial fibrillation, GERD, hyperlipidemia, osteomyelitis, CK D, vasculitis. Patient was recently in the hospital from June 30 through July 02. Patient blood pressure was not well-controlled as outpatient. Hence admitted for the same. Medication adjusted was blood pressure was doing better. Recently his outpatient Dr. Ding further medications adjustment was done. Yesterday patient was in the kitchen when her legs gave under and she fell down. Never passed out. No dizziness normal lightheadedness. No chest pain or palpitation. EMS who came to to her house noted that she was hypotensive and bradycardic. Recently her verapamil was resumed. Her initial blood pressure when she arrived here was 77/47 with a heart rate in the 40s. July 27: Patient blood pressure medication adjusted. Started on Coreg today. 12.5 twice daily. Also on Cozaar. And verapamil. Discussed with the patient the importance of checking her blood pressure to be stable at least for 24 hours before we discharge her. Given what happened at home. July 28: Overnight patient blood pressure running on the high. Received verapamil this morning. Dropped down to less than 90 systolic. Being followed by nephrology and cardiology. Spoke to the patient and daughter. Would like to watch to see the blood pressure at least be stabilized for 24 hours. Given of high risk of falls from severely fluctuating blood pressure. Patient unhappy about her staying in the hospital but I emphasized the importance of the same. Active Medications Acetaminophen (Acetaminophen Tab 325 Mg Tab) 650 mg PO Q6HR PRN PRN Reason: Pain Last Admin: 07/28/23 11:31 Dose: 650 mg Atorvastatin Calcium (Atorvastatin 10 Mg Tab) 10 mg PO HS [facility] Last Admin: 07/27/23 21:48 Dose: 10 mg Brimonidine Tartrate (Brimonidine Tartrate 0.2% Drops 5 Ml Btl) 1 drops BOTH EYES DAILY [facility] Last Admin: 07/28/23 08:48 Dose: 1 drops Carvedilol (Carvedilol 6.25 Mg Tab) 6.25 mg PO BID-W/MEALS [facility] Dorzolamide/Timolol (Dorzolamide-Timolol 2.23%/0.68 10ml Btl) 1 drops BOTH EYES DAILY [facility] Last Admin: 07/28/23 08:47 Dose: 1 drops Enoxaparin Sodium (Enoxaparin 30 Mg/0.3 Ml Syringe) 30 mg SQ DAILY [facility] Last Admin: 07/28/23 08:48 Dose: 30 mg Latanoprost (Latanoprost 0.005% Ophth Drops 2.5 Ml Btl) 1 drops BOTH EYES [facility] Last Admin: 07/27/23 21:49 Dose: 1 drops Levothyroxine Sodium (Levothyroxine 100 Mcg Tab) 100 mcg PO MoTuWeThFr@0630 [facility] Last Admin: 07/27/23 05:48 Dose: 100 mcg Lidocaine (Lidocaine 4% Patch) 1 patch TOPICAL DAILY [facility]; Protocol Last Admin: 07/28/23 08:50 Dose: Not Given Losartan Potassium (Losartan 25 Mg Tab) 12.5 mg PO DAILY@1600 [facility] Mirtazapine (Mirtazapine 15 Mg Tab) 15 mg PO [facility] Last Admin: 07/27/23 21:50 Dose: 15 mg Mycophenolate Mofetil (Mycophenolate Mofetil 250 Mg Cap) 500 mg PO BID [facility] Last Admin: 07/28/23 08:49 Dose: 500 mg Naloxone HCl (Naloxone 0.4 Mg/Ml 1 Ml Vial) 0.2 mg IV Q2M PRN PRN Reason: Opioid Reversal Ondansetron HCl (Ondansetron 4 Mg/2 Ml Vial) 4 mg IVP Q6HR PRN PRN Reason: Nausea And Vomiting Sodium Bicarbonate (Sodium Bicarbonate Tab 650 Mg Tab) 650 mg PO TID [facility] Last Admin: 07/28/23 08:49 Dose: 650 mg Triamcinolone Acetonide (Triamcinolone 0.1% Cream 80 Gm Tube) 1 applic TOPICAL BID PRN; Protocol PRN Reason: Rash Verapamil HCl (Verapamil Sr 120 Mg Tablet.Er) 120 mg PO DAILY [facility] Social history: Lives alone. Stopped smoking many years ago. Smoked for about 20 years. No alcohol. Physical examination: VITAL SIGNS: 98.3, 86, 19, 183/108 this morning, then dropping down to 83/50. GENERAL: Reclining in bed, comfortable EYES: Pupils equal. Conjunctiva normal. HEENT: External appearance of nose and ears normal, oral cavity grossly normal. NECK: JVD not raised; masses not palpable. HEART: First and second heart sounds are normal; no edema. LUNGS: Respiratory rate normal; clear to auscultation. ABDOMEN: Soft, nontender, liver spleen not palpable, no masses palpable. PSYCH: Alert and oriented x3; mood and affect normal. MUSCULOSKELETAL:No Clubbing/cyanosis;muscles-grossly intact. OA. Loss of muscle mass prominent bones INVESTIGATIONS, reviewed in the clinical context: July 28: Potassium 4.1 BUN 32 creatinine 1.62 July 27: Potassium 4.1 BUN 30.3 creatinine 1.8 July 26, 2023: White count 4.1 hemoglobin 7.9 platelets 2 7061 sodium 140 potassium 4.2 bicarb 15 BUN 35 creatinine 2.25 Troponin I less than 0.012 x 3 TSH 3.9 EKG tracing personally reviewed by me-normal sinus rhythm. Some nonspecific T wave changes Chest x-ray film personally reviewed by me-unremarkable Assessment and plan: -Syncope from hypotension from medications that were being adjusted. Patient's blood pressure control has been a problem and is being followed by Dr. Ding her clinical research spec outpatient. -Essential hypertension, labile Labetalol discontinued. Coreg 12.5 twice daily added. Cozaar 25 mg a day. Verapamil 240 mg a day. -Chronic kidney disease, stage IV possibly nephrosclerosis Follow renal function -Acute kidney injury, possibly from hypotension/ATN Admitting creatinine was 2.39. Today 1.62 -Metabolic acidosis from CKD Sodium bicarbonate -Normocytic anemia secondary to chronic kidney disease -Hypothyroid Levothyroxin. 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 Continue supplements -Chronic vascular disease, type unknown CellCept -Chronic urinary stress incontinence -Moderate protein calorie malnutrition Ensure. Discussed with the patient daughter. Significant fluctuation in blood pressure. Will watch another 24 hours. Await further input from nephrology who has been following the patient outpatient 2. 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 Recieved both covid vaccines, 2nd dose around History of Any Multi-Drug Resistant Organisms: None Reported Past Surgical History: Appendectomy, Hysterectomy, Orthopedic Surgery Additional Past Surgical History / Comment(s): left ankle, left hip surgery x 2017 Past Anesthesia/Blood Transfusion Reactions: Postoperative Nausea & Vomiting (P ONV) Past Psychological History: No Psychological Hx Reported Smoking Status: Former smoker Past Alcohol Use History: Daily Past Drug Use History: None Reported
--- NOTE | 2023-07-28 16:30 | P.PN ---
Subjective Progress Note Date: 07/28/23 HISTORY OF PRESENT ILLNESS: This is an 88-year-old female who follows in the office with Dr. Tafoya. Adrian ortiz has a history of paroxysmal atrial fibrillation, hypertension, hyperlipidemia, GERD, chronic kidney disease, mitral regurgitation, and frequent falls. The patient was recently admitted to the hospital for uncontrolled hypertension. Patients antihypertensive regimen was modified. Patient states that she has continued to have issues with her blood pressure going very low and also very high. Apparently there was question of the patient taking a double dose of her labetalol. The patient was bradycardic in the 40s upon arrival and also hypotensive with a systolic blood pressure in the 70s. She denies any chest pain or pressure. She denies any shortness of breath. Denies any dizzine ss or lightheadedness. The patient is currently not on telemetry monitoring. Documented heart rates are in the [id number]. 07/28/23 Her blood pressure was significantly elevated overnight, she was given medications and then has remained bradycardic and hypotensive throughout the day. Upon review of telemetry when she is hypotensive and bradycardic is when she is actually in a slow A-fib. Pt reports feeling fatigue, generalized weakness, nausea and poor appetite. No chest pain or pressure. No shortness of breath. Orthostat VS negative yesterday. Primary team is requesting Nephrology to manage blood pressure. PHYSICAL EXAM: VITAL SIGNS: Reviewed. GENERAL: Well-developed in no acute distress. NECK: Supple. LUNGS: Respirations even and unlabored. Lungs essentially clear to auscultation bilaterally. HEART: Regular rate and rhythm. S1 and S2 heard. EXTREMITIES: Normal range of motion. No clubbing or cyanosis. Peripheral pulses intact. No lower extremity edema ASSESSMENT: Bradycardia Hypotension History of hypertension Labile blood pressures Paroxysmal atrial fibrillation Chronic kidney disease History of GERD History of mitral regurgitation History of frequent falls PLAN: Tele reviewed, when she is in a-fib, heart rate drops and blood pressure appears to drop as well. She is in NSR currently and blood pressure is better, manual reading is currently 145/85. May need to manage a-fib, however, we will continue to monitor for next 24 hour before making any changes. Will follow. Nurse practitioner note has been reviewed by physician. Signing provider agrees with the documented findings, assessment, and plan of care documented by BARREL CHARRER as a scribe. Objective - Vital Signs Vital signs: Vital Signs Temp 98.7 F 07/28/23 12:45 Pulse 72 07/28/23 15:35 Resp 18 07/28/23 12:45 BP 130/78 07/28/23 15:35 Pulse Ox 99 07/28/23 12:45 FiO2 Intake & Output 07/27/23 07/28/23 07/28/23 18:59 06:59 18:59 Output Total 300 Balance -300 Weight 45.132 kg Output: Urine 300 Other: Voiding Method Toilet Toilet # Voids 3 1 - Labs CBC & Chem 7: 07/26/23 06:12 07/28/23 07:34 Labs: Abnormal Lab Results - Last 24 Hours (Table) 07/28/23 07/28/23 Range/Units 02:22 07:34 Chloride 112 H (98-107) mmol/L Carbon Dioxide 21 L (22-30) mmol/L BUN 32 H (7-17) mg/dL Creatinine 1.62 H (0.52-1.04) mg/dL Urine Protein 1+ H (Negative) Urine Blood Trace H (Negative) Urine RBC 6 H (0-5) /hpf Urine WBC 6 H (0-5) /hpf Urine Bacteria Rare H (None) /hpf Urine Mucus Rare H (None) /hpf
[2023-07-28] MEDS: carvediloL 6.25 MG TAB PO SCH (17:53)
[2023-07-29] MEDS: VERAPAMIL SR 120 MG TABLET.ER PO SCH (08:21)
[2023-07-29 08:49] VITALS: RESP 18; TEMP 97.6
[2023-07-29] MEDS ORDERED: LOSARTAN 25 MG TAB PO SCH ×2 (09:00→16:00)
--- NOTE | 2023-07-29 09:13 | P.PN ---
Subjective Progress Note Date: 07/29/23 Follow-up for DEMIAN and hypertension. Had nausea and dry heaves after BP dropped low yesterday afternoon. Feeling better this morning. Vital signs are stable. Blood pressure labile. General: No acute distress. HEENT: Head exam is unremarkable. LUNGS: No audible rhonchi or wheezes. HEART: Rate and Rhythm are regular. ABDOMEN: Nontender. EXTREMITITES: No edema. Objective - Vital Signs Vital signs: Vital Signs Temp 97.6 F 07/29/23 08:00 Pulse 95 07/29/23 08:00 Resp 18 07/29/23 08:00 BP 216/110 07/29/23 08:00 Pulse Ox 95 07/29/23 08:00 FiO2 Intake & Output 07/28/23 07/29/23 07/29/23 18:59 06:59 18:59 Intake Total 240 590 240 Output Total 300 Balance -60 590 240 Intake: Oral 240 590 240 Output: Urine 300 Other: Voiding Method Toilet # Voids 1 2 - Labs CBC & Chem 7: 07/26/23 06:12 07/28/23 07:34 Assessment and Plan Plan: Assessment: 1. Acute kidney injury secondary to hemodynamic ATN. Creatinine improved 2.25 to 1.6 today. 2. Chronic kidney disease stage IIIb/IV with baseline creatinine recently in the range of 1.5-2 secondary to P ANCA associated vasculitis. 3. 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 4. Hypertension with chronic kidney disease. 5. Bradycardia from beta-abby use. 6. Metabolic acidosis secondary to acute kidney injury maintained on oral bicarb. Plan: BP low yesterday triggering Afib, decreased Verapamil 120mg daily, Coreg 6.25mg BID, and Losartan 12.5mg at 4pm Goal BP given age should be systolic 120-150 as acceptable range given how labile and difficult to control. If BP improved this after noon clear for discharge with outpatient follow-up Dr Ding in 2 weeks.
[2023-07-29 12:27] VITALS: BP 137/67; PULSE 67
--- NOTE | 2023-07-29 15:24 | P.DS ---
Providers Date of admission: 07/26/23 16:03 Expected date of discharge: 07/29/23 Attending physician: Gus Paul Consults: 07/25/23 21:13 Consult Physician Urgent Consulting Provider: [facility] Consult Reason/Comments: bradycardia Do you want consulting provider notified?: Yes 07/26/23 12:10 Consult Physician Routine Consulting Provider: [facility] Reason/Comments: ckd Do you want consulting provider notified?: Yes Primary care physician: Mannie [facility] Course: Chief Complaint: Weak in the legs fall This is a pleasant 88-year-old patient, who is following with Dr. Wiley. Business Development Agent Dr. Ding. chronic medical conditions include atrial fibrillation, GERD, hyperlipidemia, osteomyelitis, CK D, vasculitis. Patient was recently in the hospital from June 30 through July 02. Patient blood pressure was not well-controlled as outpatient. Hence admitted for the same. Medication adjusted was blood pressure was doing better. Recently his outpatient Dr. Ding further medications adjustment was done. Yesterday patient was in the kitchen when her legs gave under and she fell down. Never passed out. No dizziness normal lightheadedness. No chest pain or palpitation. EMS who came to to her house noted that she was hypotensive and bradycardic. Recently her verapamil was resumed. Her initial blood pressure when she arrived here was 77/47 with a heart rate in the 40s. July 27: Patient blood pressure medication adjusted. Started on Coreg today. 12.5 twice daily. Also on Cozaar. And verapamil. Discussed with the patient the importance of checking her blood pressure to be stable at least for 24 hours before we discharge her. Given what happened at home. July 28: Overnight patient blood pressure running on the high. Received verapamil this morning. Dropped down to less than 90 systolic. Being followed by nephrology and cardiology. Spoke to the patient and daughter. Would like to watch to see the blood pressure at least be stabilized for 24 hours. Given of high risk of falls from severely fluctuating blood pressure. Patient unhappy about her staying in the hospital but I emphasized the importance of the same. July 29: Patient blood pressure better this afternoon. Verapamil cut back to 120. Cozaar down to 12.5 mg at 4 PM. Coreg to continue. Discussed with the patient daughter at the bedside. Keen to go home. Will follow-up with Dr. Ding early next week. Cleared by nephrology. Discussion and discharge planning more than 35 minutes Social history: Lives alone. Stopped smoking many years ago. Smoked for about 20 years. No alcohol. Physical examination: VITAL SIGNS: 97.6, 67, 16, 137 x 67, 95% room air GENERAL: Reclining in bed, comfortable EYES: Pupils equal. Conjunctiva normal. HEENT: External appearance of nose and ears normal, oral cavity grossly normal. NECK: JVD not raised; masses not palpable. HEART: First and second heart sounds are normal; no edema. LUNGS: Respiratory rate normal; clear to auscultation. ABDOMEN: Soft, nontender, liver spleen not palpable, no masses palpable. PSYCH: Alert and oriented x3; mood and affect normal. MUSCULOSKELETAL:No Clubbing/cyanosis;muscles-grossly intact. OA. Loss of muscle mass prominent bones INVESTIGATIONS, reviewed in the clinical context: July 28: Potassium 4.1 BUN 32 creatinine 1.62 July 27: Potassium 4.1 BUN 30.3 creatinine 1.8 July 26, 2023: White count 4.1 hemoglobin 7.9 platelets 2 7061 sodium 140 potassium 4.2 bicarb 15 BUN 35 creatinine 2.25 Troponin I less than 0.012 x 3 TSH 3.9 EKG tracing personally reviewed by me-normal sinus rhythm. Some nonspecific T wave changes Chest x-ray film personally reviewed by me-unremarkable Assessment and plan: -Syncope from hypotension from medications that were being adjusted. Patient's blood pressure control has been a problem and is being followed by Dr. Ding her referral manager outpatient. -Essential hypertension, labile Labetalol discontinued. Coreg 6.25 twice daily. Cozaar 12.5 mg daily at 4 PM. Cut back verapamil 120 long-acting mg a day. -Chronic kidney disease, stage IV possibly nephrosclerosis Follow renal function -Acute kidney injury, possibly from hypotension/ATN Admitting creatinine was 2.39. Now 1.62 -Metabolic acidosis from CKD Sodium bicarbonate -Normocytic anemia secondary to chronic kidney disease -Hypothyroid Levothyroxin. 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 Continue supplements -Chronic vascular disease, type unknown CellCept -Chronic urinary stress incontinence -Moderate protein calorie malnutrition Ensure. 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 Recieved both covid vaccines, 2nd dose around easter History of Any Multi-Drug Resistant Organisms: None Reported Past Surgical History: Appendectomy, Hysterectomy, Orthopedic Surgery Additional Past Surgical History / Comment(s): left ankle, left hip surgery x 2017 Past Anesthesia/Blood Transfusion Reactions: Postoperative Nausea & Vomiting (PONV) Past Psychological History: No Psychological Hx Reported Smoking Status: Former smoker Past Alcohol Use History: Daily Past Drug Use History: None Reported Plan - Discharge Summary New Discharge Prescriptions: New carvediloL [Coreg] 6.25 mg PO BID-W/MEALS #60 tab Losartan [Cozaar] 12.5 mg PO DAILY@1600 #30 tab Verapamil Sr [Isoptin Sr] 120 mg PO DAILY #30 tab Sodium Bicarbonate Tab 650 mg PO TID #60 tab Continue mycophenolate mofetiL [Cellcept] 500 mg PO BID Levothyroxine Sodium 100 mcg PO MOTUWETHFR Latanoprost [Xalatan 0.005%] 1 drop BOTH EYES HS Apixaban [Eliquis] 2.5 mg PO BID Triamcinolone 0.1% Cream [Kenalog 0.1% Cream] 1 applic TOPICAL BID PRN PRN Reason: Rash Simvastatin [Zocor] 20 mg PO HS Brimonidine Tartrate [Alphagan P 0.2% Ophth Soln] 1 drop BOTH EYES DAILY calcitrioL 0.5 mcg PO MO Iron 18 mg PO DAILY Ergocalciferol (Vitamin D2) [Drisdol (50,000 Iu)] 1,250 mcg PO Q14D Mirtazapine [Remeron] 15 mg PO HS Dorzolamide-Timol 2.23%/0.68% [Cosopt] 1 drop BOTH EYES DAILY Discontinued Labetalol [Trandate] 100 mg PO BID #60 tab Verapamil HCl [Verapamil ER] 240 mg PO DAILY Losartan [Cozaar] 50 mg PO DAILY@1400 Discharge Medication List mycophenolate mofetiL [Cellcept] 500 mg PO BID 09/24/15 [History] Levothyroxine Sodium 100 mcg PO MOTUWETHFR 10/11/18 [History] Apixaban [Eliquis] 2.5 mg PO BID 11/05/20 [History] Latanoprost [Xalatan 0.005%] 1 drop BOTH EYES HS 11/05/20 [History] Brimonidine Tartrate [Alphagan P 0.2% Ophth Soln] 1 drop BOTH EYES DAILY 08/27/21 [History] Ergocalciferol (Vitamin D2) [Drisdol (50,000 Iu)] 1,250 mcg PO Q14D 06/07/23 [History] Iron 18 mg PO DAILY 06/07/23 [History] Mirtazapine [Remeron] 15 mg PO HS 06/07/23 [History] Simvastatin [Zocor] 20 mg PO HS 06/07/23 [History] Triamcinolone 0.1% Cream [Kenalog 0.1% Cream] 1 applic TOPICAL BID PRN 06/07/23 [History] calcitrioL 0.5 mcg PO MO 06/07/23 [History] Dorzolamide-Timol 2.23%/0.68% [Cosopt] 1 drop BOTH EYES DAILY 06/30/23 [History] Losartan [Cozaar] 12.5 mg PO DAILY@1600 #30 tab 07/29/23 [Rx] Sodium Bicarbonate Tab 650 mg PO TID #60 tab 07/29/23 [Rx] Verapamil Sr [Isoptin Sr] 120 mg PO DAILY #30 tab 07/29/23 [Rx] carvediloL [Coreg] 6.25 mg PO BID-W/MEALS #60 tab 07/29/23 [Rx] Follow up Appointment(s)/Referral(s): Mannie Wiley DO [Primary Care Provider] - 1-2 days (Medical Doctor Call office on Sunday to make follow-up appointment) [facility], [NON-STAFF] - 1 Week Patient Instructions/Handouts: Verapamil (By mouth), Losartan (By mouth), Carvedilol (By mouth), Sodium Bicarbonate (By mouth), Chronic Kidney Disease (DC), Fall Prevention for Older Adults (DC) Discharge Disposition: HOME WITH HOME HEALTH SERVICES
== END 2023-07-29 13:30 | disposition home health service (06) | DRG 683 ==
LOC: EC 16:44 → 2CATHESU 21:13 → 3SCARD 07-26 05:33 → 4SSUR 07-26 12:37 → 5NMEDONC 07-26 12:46 → OBSVTOIN 07-26 16:03 → 5NMEDONC 07-26 18:05
PROVIDERS: ADMIT Hospitalist; ATTEND Hospitalist
DX: N17.0 Acute kidney failure with tubular necrosis (principal); E44.0 Moderate protein-calorie malnutrition; S22.31XA Fracture of one rib, right side, initial encounter for closed fracture; E87.20 Acidosis, unspecified; Z68.1 Body mass index [BMI] 19.9 or less, adult; N18.4 Chronic kidney disease, stage 4 (severe); R53.1 Weakness; D63.1 Anemia in chronic kidney disease; E03.9 Hypothyroidism, unspecified; Z79.890 Hormone replacement therapy; E11.22 Type 2 diabetes mellitus with diabetic chronic kidney disease; K21.9 Gastro-esophageal reflux disease without esophagitis; E78.5 Hyperlipidemia, unspecified; F51.04 Psychophysiologic insomnia; T44.7X5A Adverse effect of beta-adrenoreceptor antagonists, initial encounter; I12.9 Hypertensive chronic kidney disease with stage 1 through stage 4 chronic kidney disease, or unspecified chronic kidney disease; R00.1 Bradycardia, unspecified; X58.XXXA Exposure to other specified factors, initial encounter; I48.0 Paroxysmal atrial fibrillation; R29.6 Repeated falls; I77.82 Antineutrophilic cytoplasmic antibody [ANCA] vasculitis; I95.2 Hypotension due to drugs; Z87.01 Personal history of pneumonia (recurrent); I08.3 Combined rheumatic disorders of mitral, aortic and tricuspid valves; N39.3 Stress incontinence (female) (male); Y92.009 Unspecified place in unspecified non-institutional (private) residence as the place of occurrence of the external cause; W19.XXXA Unspecified fall, initial encounter; Z79.01 Long term (current) use of anticoagulants; Z79.624 Long term (current) use of inhibitors of nucleotide synthesis; Z79.899 Other long term (current) drug therapy; Z82.49 Family history of ischemic heart disease and other diseases of the circulatory system; Z90.710 Acquired absence of both cervix and uterus; Z91.81 History of falling; Z87.891 Personal history of nicotine dependence
CPT/HCPCS: 36415; 51798; 70450; 71045; 71250; 72125; 80048; 80053; 81001; 82550; 83605; 83735; 83880; 84443; 84484; 85025; 85610; 85730; 93005; 93306; 96361; 96374; 96375; 99285